=== PATIENT | female | born 1955 | race Caucasian/White ===

== ENCOUNTER 2016-10-27 13:06 | Outpatient (RCR) | payer BC ==
--- OUTSIDE RECORDS SUMMARY | 2016-10-11 13:19 | XMS REPORT | Continuity of Care Document ---
Author Author [facility] Organization [facility] Address Unknown Phone Unavailable Care Team Providers Care Dictating Machine Typist Name Role Phone Armando Davis PCP [phone] Source Comments Some departments are not documenting in the electronic medical record. If you do not see the information that you expected, contact Release of Information in the Health Information Management department at [phone] for further assistance in locating additional records.[facility] Active Allergies and Adverse Reactions Allergen Noted Date Severity Reactions Comments Codeine 03/19/2012 SEE COMMENTS Sulfa (Sulfonamide 03/19/2012 SEE COMMENTS Antibiotics) Current Medications Prescription Sig. Disp. Refills Start End Date Status Date Calcium-Cholecalciferol Take 2 Tabs by mouth Active (D3) (CALCIUM WITH twice daily. VITAMIN D) 600 mg(1,500mg) -400 unit Tab ERGOCALCIFEROL (VITAMIN Take 1,000 Units by mouth Active D2) (VITAMIN D PO) daily. MV-MN/IRON/FA/GUARANA/CAF Take by mouth. Active FEINE (ONE-A-DAY WOMEN'S ACTIVE PO) nitrofurantoin Take 100 mg by mouth as Active (MACRODANTIN) 100 mg Needed. PRN for UTIs capsule levothyroxine (SYNTHROID) Take 1 Tab by mouth 90 Tab 3 12/13/19 Active 50 mcg tablet daily. 15 Active Problems Problem Noted Date Hypothyroid 03/19/2012 Hypothyroidism 03/19/2012 Steroid long-term use 03/19/2012 Osteopenia 03/19/2012 Social History Tobacco Use Types Packs/Day Years Used Date Never Smoker Smokeless Tobacco: Never Used Tobacco Cessation: Counseling Given: No Comments: Alcohol Use Drinks/Week oz/Week Comments No Last Filed Vital Signs Vital Sign Reading Time Taken Blood Pressure 131/78 12/08/2014 2:07 PM CDT Pulse 84 12/08/2014 2:07 PM CDT Temperature - - Respiratory Rate - - Height 1.727 m (5' 8") 12/08/2014 2:07 PM CDT Weight 68.493 kg (151 lb) 12/08/2014 2:07 PM CDT Body Mass Index 22.96 12/08/2014 2:07 PM CDT Oxygen Saturation - - Plan of Care Health Maintenance Due Date Last Done Comments Physical (Comprehensive) 1963 Exam Pertussis Vaccine 1967 Tetanus Vaccine 1973 Cervical Cancer Screening 1977 Breast Cancer Screening 1996 Colorectal Cancer 2006 Screening Influenza Vaccine 05/12/2016 06/11/2014 (Previously completed) Results from Last 3 Months Not on file
[~2016-10-27 13:06] MED LIST: CALC-755 PO; CALC1TAB94 PO; CHOL10007 PO; CRAN450T9 PO; DOXY100T2 PO; FLAX100011 PO; LVT.05T PO; MTP25TSR PO; MULT-608 PO; OMEG-12 PO; PNT40TEC PO; PRD10T PO; PROP20TA5 PO; RISE150T PO; RISE30TA PO; VIT D3 PO
[2016-10-27] MEDS ORDERED: DENOSUMAB 60 MG/1 ML (PROLIA) SQ NR (13:26)
[2016-10-27] MEDS ORDERED: DENOSUMAB 60 MG/1 ML (PROLIA) CANCER CTR SQ SCH (13:30)
== END 2017-01-09 | disposition home or self-care (01) ==
LOC: ONC 13:06
PROVIDERS: ATTEND Internal Medicine Hematology & Oncology
DX: Z09 Encounter for follow-up examination after completed treatment for conditions other than malignant neoplasm (principal); Z86.000 Personal history of in-situ neoplasm of breast; E03.9 Hypothyroidism, unspecified; M85.80 Other specified disorders of bone density and structure, unspecified site; Z92.3 Personal history of irradiation
CPT/HCPCS: 96372

== ENCOUNTER 2017-04-27 13:14 | Outpatient (RCR) | payer BC ==
[2017-04-27] MEDS ORDERED: DENOSUMAB 60 MG/1 ML (PROLIA) CANCER CTR SQ SCH (13:45)
== END 2017-06-10 | disposition home or self-care (01) ==
LOC: ONC 13:14
PROVIDERS: ATTEND Internal Medicine Hematology & Oncology
DX: Z09 Encounter for follow-up examination after completed treatment for conditions other than malignant neoplasm (principal); Z86.000 Personal history of in-situ neoplasm of breast; M81.0 Age-related osteoporosis without current pathological fracture; E03.9 Hypothyroidism, unspecified; Z92.3 Personal history of irradiation; Z79.899 Other long term (current) drug therapy
CPT/HCPCS: 96372

== ENCOUNTER → 2017-07-10 | Outpatient (CLI) | payer BC ==
--- NOTE | 2017-07-11 14:13 | Diagnostic Imaging Report ---
EXAMINATION: Bilateral screening mammogram 2D views with tomosynthesis. The current study was also evaluated with a Computer Aided Detection (CAD) system. INDICATION: Screening. PERSONAL HISTORY: No current complaints stated on the questionnaire. COMPARISON: 07/07/2016. FINDINGS: The breasts are composed of heterogeneously dense parenchyma which may decrease mammographic sensitivity. Benign-appearing calcifications are seen. Allowing for technique and positional differences, no suspicious change is seen. IMPRESSION: Dense breasts with no definite change. ACR BI-RADS Category 2: Benign findings. Result letter will be mailed to the patient. Note: At least 10% of breast cancer is not imaged by mammography. Dictated by: Dictated on workstation # [id number]
== END ==
LOC: RAD 09:53
PROVIDERS: ATTEND Nurse Practitioner Adult Health
DX: Z12.31 Encounter for screening mammogram for malignant neoplasm of breast (principal)
CPT/HCPCS: 77067

== ENCOUNTER → 2017-08-16 | Outpatient (CLI) | payer BC | LOC: RAD 08:37 | PROVIDERS: ATTEND Internal Medicine Hematology & Oncology | DX: Z12.31 Encounter for screening mammogram for malignant neoplasm of breast (principal); M81.0 Age-related osteoporosis without current pathological fracture; Z85.3 Personal history of malignant neoplasm of breast ==

== ENCOUNTER 2017-10-13 08:04 | Outpatient (RCR) | payer BC ==
[2017-10-31] MEDS ORDERED: LEVO50TA6 PO (09:31)
[2017-10-31] MEDS ORDERED: FLAX1000 PO (09:31)
[2017-10-31] MEDS ORDERED: CALC-694 PO (09:31)
[2017-10-31] MEDS ORDERED: MULT1CAP27 PO (09:31)
== END 2017-11-05 | disposition home or self-care (01) ==
PROVIDERS: ATTEND Physician Assistant
DX: M54.12 Radiculopathy, cervical region (principal)

== ENCOUNTER 2017-10-27 13:22 | Outpatient (RCR) | payer BC ==
[2017-10-27] MEDS ORDERED: DENOSUMAB 60 MG/1 ML (PROLIA) CANCER CTR SQ SCH (13:38)
[2017-10-31] MEDS ORDERED: LEVO50TA6 PO (09:31)
[2017-10-31] MEDS ORDERED: MULT1CAP27 PO (09:31)
[2017-10-31] MEDS ORDERED: FLAX1000 PO (09:31)
[2017-10-31] MEDS ORDERED: CALC-694 PO (09:31)
== END 2017-11-13 | disposition home or self-care (01) ==
LOC: ONC 13:22
PROVIDERS: ATTEND Internal Medicine Hematology & Oncology
DX: Z09 Encounter for follow-up examination after completed treatment for conditions other than malignant neoplasm (principal); Z86.000 Personal history of in-situ neoplasm of breast; M81.0 Age-related osteoporosis without current pathological fracture; E03.9 Hypothyroidism, unspecified; Z92.3 Personal history of irradiation; Z79.899 Other long term (current) drug therapy
CPT/HCPCS: 96372; 99213

== ENCOUNTER 2017-10-31 09:00 | Outpatient (CLI) | payer BC ==
[~2017-10-31] VITALS: Ht 172.7 cm; Wt 65.8 kg
[2017-10-31] MEDS ORDERED: CALC-694 PO (09:31)
[2017-10-31] MEDS ORDERED: FLAX1000 PO (09:31)
[2017-10-31] MEDS ORDERED: LEVO50TA6 PO (09:31)
[2017-10-31] MEDS ORDERED: MULT1CAP27 PO (09:31)
== END 2017-10-31 09:41 ==
LOC: PREOP 09:00
PROVIDERS: ATTEND Surgery
DX: Z01.818 Encounter for other preprocedural examination (principal); Z12.11 Encounter for screening for malignant neoplasm of colon

== ENCOUNTER 2017-11-20 11:07 | Day surgery (SDC) | payer BC ==
[~2017-11-20] VITALS: Ht 172.7 cm; Wt 65.8 kg
[~2017-11-20 11:07] MED LIST changes: +CALC-694 PO; +FLAX1000 PO; +LEVO50TA6 PO; +MULT1CAP27 PO
[2017-11-20] MEDS ORDERED: NS IV 500 ML 500 ML ONE (11:10)
[2017-11-20] MEDS ORDERED: NS IV 500 ML 500 ML IV PRN (11:16)
[2017-11-20] MEDS ORDERED: fentaNYL INJECTION 100 MCG/2 ML AMP IVP PRN (11:30)
[2017-11-20] MEDS ORDERED: MIDAZOLAM 2 MG/2 ML (VERSED) VIAL IVP PRN (11:30)
--- OUTSIDE RECORDS SUMMARY | 2017-11-20 11:33 | XMS REPORT | Clinical Summary ---
Author Author [facility] Organization [facility] Address Unknown Phone Unavailable Care Team Providers Care Dowel Sander Operator Name Role Phone Sintia Salazar RN Unavailable Unavailable Edna Glaser MD Unavailable Terra Higgins APRN Unavailable Unavailable Armando Davis MD PCP Mychart, Generic Provider Unavailable Unavailable Source Comments Some departments are not documenting in the electronic medical record. If you do not see the information that you expected, contact Release of Information in the Health Information Management department at [phone] for further assistance in locating additional records.[facility] Allergies Active Allergy Reactions Severity Noted Date Comments Codeine SEE COMMENTS 03/19/2012 Sulfa (Sulfonamide SEE COMMENTS 03/19/2012 Antibiotics) Current Medications Prescription Sig. Disp. Refills [...] 03/19/2012 Steroid long-term use 03/19/2012 Osteopenia 03/19/2012 Family History Medical History Relation Name Comments Thyroid Disease Mother hypothyroid Relation Name Status Comments Father (Age 70) Mother Alive Social History Tobacco Use Types Packs/Day Years Used Date Never Smoker Smokeless Tobacco: Never Used Tobacco Cessation: Counseling Given: No Alcohol Use Drinks/Week oz/Week Comments No Sex Assigned at Date Recorded Not on file Last Filed Vital Signs Vital Sign Reading Time Taken Blood Pressure 131/78 12/08/2014 2:07 PM CDT Pulse 84 12/08/2014 2:07 PM CDT Temperature - - Respiratory Rate - - Oxygen Saturation - - Inhaled Oxygen - - Concentration Weight 68.5 kg (151 lb) 12/08/2014 2:07 PM CDT Height 172.7 cm (5' 8") 12/08/2014 2:07 PM CDT Body Mass Index 22.96 12/08/2014 2:07 PM CDT Plan of Treatment Health Maintenance Due Date Last Done Comments HEPATITIS C SCREENING 1956 PHYSICAL (COMPREHENSIVE) 1963 EXAM PERTUSSIS VACCINE 1967 HIV SCREENING 1971 TETANUS VACCINE 1973 CERVICAL CANCER SCREENING 1986 BREAST CANCER SCREENING 1996 COLORECTAL CANCER 2006 SCREENING SHINGLES VACCINE 2016 INFLUENZA VACCINE 06/11/2018 06/11/2014 (Previously completed) Results Not on filefrom Last 3 Months
--- OUTSIDE RECORDS SUMMARY | 2017-11-20 11:34 | XMS REPORT | Continuity of Care Document ---
Author Author [facility] Organization [facility] Address Unknown Phone Unavailable Allergies Active Description Code Type Severity Reaction Onset Reported/Identified Relationship to Patient Clinical Status Yes codeine [id number] Drug Allergy Unknown UNKNOWN 06/04/2007 Yes Sulfa (Sulfonamide Antibiotics) [id number] Drug Allergy Unknown UNKNOWN Yes Iodinated Contrast Media - IV Dye [id number] Drug Allergy Moderate SWELLLING 02/09/2012 Yes Iodinated Contrast Media - Oral and [id number] Drug Allergy Moderate SWELLLING 02/09/2012 Yes Iodinated Contrast- Oral and IV Dye [id number] Drug Allergy Moderate SWELLLING 02/09/2012 Medications There is no data. Problems Date Dx Coded Attending Type Code Diagnosis Diagnosed By 09/22/2009 Ot 233.0 12/22/2009 Ot 233.0 12/22/2009 Ot V58.0 04/27/2011 Ot 233.0 CA IN SITU BREAST 04/27/2011 Ot 427.9 CARDIAC DYSRHYTHMIA NOS 04/27/2011 Ot 623.5 NONINFECT VAG LEUKORRHEA 04/27/2011 Ot V15.3 HX OF IRRADIATION 04/27/2011 Ot V58.69 OTH MED,LT, CURRENT USE 02/14/2012 Ot 245.9 THYROIDITIS NOS 02/14/2012 Ot 784.0 HEADACHE 02/14/2012 Ot 793.11 SOLITARY PULMONARY NODULE 12/22/2014 Ot 174.9 12/22/2014 Ot 733.90 12/22/2014 Ot 719.45 12/22/2014 Ot 233.0 12/22/2014 Ot V15.3 12/22/2014 Ot V58.69 12/22/2014 Ot 233.0 12/22/2014 Ot V15.89 12/22/2014 Ot 233.0 12/22/2014 Ot V15.3 12/22/2014 Ot V58.69 12/22/2014 Ot 233.0 12/22/2014 Ot V15.3 12/22/2014 Ot V58.69 12/22/2014 Ot 174.9 12/22/2014 Ot V67.9 12/22/2014 Ot 397.0 12/22/2014 Ot 424.1 12/22/2014 Ot 427.69 12/22/2014 Ot V15.3 12/22/2014 Ot 427.69 12/22/2014 Ot 785.1 12/22/2014 Ot 233.0 12/22/2014 Ot 623.5 12/22/2014 Ot V15.3 12/22/2014 Ot V58.69 12/22/2014 Ot 233.0 12/22/2014 Ot 427.9 12/22/2014 Ot 623.5 12/22/2014 Ot V15.3 12/22/2014 Ot V58.69 12/22/2014 Ot 233.0 12/22/2014 Ot 427.9 12/22/2014 Ot 733.90 12/22/2014 Ot V15.3 12/22/2014 Ot V58.69 12/22/2014 Ot 733.90 12/22/2014 Ot V10.3 12/22/2014 Ot 233.0 12/22/2014 Ot 427.9 12/22/2014 Ot 733.90 12/22/2014 Ot V15.3 12/22/2014 Ot V58.69 12/22/2014 Ot 233.0 12/22/2014 Ot 793.81 12/22/2014 Ot V76.11 12/22/2014 Ot 786.2 12/22/2014 Ot 794.5 12/22/2014 Ot 785.1 12/22/2014 Ot 786.50 12/22/2014 Ot 611.72 12/22/2014 Ot 793.89 12/22/2014 Ot 611.72 12/22/2014 Ot 244.9 12/22/2014 Ot 245.9 12/22/2014 Ot 733.90 12/22/2014 Ot V10.3 12/22/2014 Ot V58.69 12/22/2014 Ot V67.1 12/22/2014 Ot V10.3 12/22/2014 Ot V76.11 12/22/2014 BESS CREWS N Ot 174.9 12/22/2014 BESS CREWS N Ot 793.82 12/22/2014 MARS, BOBAN N Ot V76.11 12/22/2014 MARS, BOBAN N Ot 244.9 12/22/2014 MARS, BOBAN N Ot 245.9 12/22/2014 MARS, BOBAN N Ot 627.3 12/22/2014 MARS, BOBAN N Ot 733.90 12/22/2014 MARS, BOBAN N Ot V13.89 12/22/2014 MARS, BESS N Ot V58.69 12/22/2014 MARS, BESS N Ot V67.1 12/22/2014 MARS, BOBAN N Ot 233.0 12/22/2014 MARS, BOBAN N Ot 733.90 12/22/2014 MARS, BESS N Ot V76.11 12/22/2014 APRIL URSULA S AMBULANCE MECHANIC Ot 244.9 12/22/2014 APRIL URSULA S AMBULANCE MECHANIC Ot 245.9 12/22/2014 URSULA CHEN S AMBULANCE MECHANIC Ot 627.3 12/22/2014 APRIL URSULA S AMBULANCE MECHANIC Ot 733.90 12/22/2014 APRIL URSULA S AMBULANCE MECHANIC Ot V10.3 12/22/2014 CHEN, URSULA S AMBULANCE MECHANIC Ot V58.69 12/22/2014 URSULA CHEN S AMBULANCE MECHANIC Ot V67.1 12/22/2014 URSULA CHEN S AMBULANCE MECHANIC Ot 338.29 12/22/2014 APRIL URSULA S AMBULANCE MECHANIC Ot 722.51 12/22/2014 APRIL URSULA S AMBULANCE MECHANIC Ot 786.52 12/22/2014 STAN VÁSQUEZ, AKSHAT R Ot 789.09 01/05/2015 APRIL URSULA S AMBULANCE MECHANIC Ot 724.5 01/05/2015 CHEN, HESHAMJASMEET S AMBULANCE MECHANIC Ot 733.90 01/05/2015 CHENURSULA Rendon S AMBULANCE MECHANIC Ot V13.89 01/05/2015 HESHAM CHENAH S AMBULANCE MECHANIC Ot V58.69 01/05/2015 URSULA CHEN S AMBULANCE MECHANIC Ot V67.1 01/30/2015 URSULA CHEN S AMBULANCE MECHANIC Ot 233.0 01/30/2015 URSULA CHEN S AMBULANCE MECHANIC Ot 724.5 01/30/2015 URSULA CHEN S AMBULANCE MECHANIC Ot 789.09 07/09/2015 URSULA CHEN AMBULANCE MECHANIC Ot D05.90 07/09/2015 URSULA CHEN AMBULANCE MECHANIC Ot R10.9 08/27/2015 BESS CREWS Ot E03.9 08/27/2015 BESS CREWS N Ot M85.80 08/27/2015 BESS CREWS N Ot Z09 08/27/2015 BESS CREWS N Ot Z86.000 08/27/2015 BESS CREWS N Ot Z92.3 09/02/2015 URSULA CHEN AMBULANCE MECHANIC Ot Z12.31 09/02/2015 URSULA CHEN AMBULANCE MECHANIC Ot Z85.3 09/17/2015 STAN VÁSQUEZ, AKSHAT West Ot G47.33 OBSTRUCTIVE SLEEP APNEA (ADULT) (PEDIATR 09/17/2015 STAN VÁSQUEZ, AKSHAT [place] Ot I49.9 CARDIAC ARRHYTHMIA, UNSPECIFIED 10/14/2015 BESS CREWS Burt Ot E03.9 HYPOTHYROIDISM, UNSPECIFIED 10/14/2015 BESS CREWS Ot M85.80 OTH DISRD OF BONE DENSITY AND STRUCTURE, 10/14/2015 BESS CREWS Ot Z09 ENCNTR FOR F/U EXAM AFT TRTMT FOR COND O 10/14/2015 BESS CREWS N Ot Z86.000 PERSONAL HISTORY OF IN-SITU NEOPLASM OF 10/14/2015 BESS CREWS N Ot Z92.3 PERSONAL HISTORY OF IRRADIATION 12/31/2015 WILLIAN HELM MD Ot I08.0 RHEUMATIC DISORDERS OF BOTH MITRAL AND A 12/31/2015 WILLIAN HELM MD Ot I47.1 SUPRAVENTRICULAR TACHYCARDIA 12/31/2015 WILLIAN HELM MD Ot I49.3 VENTRICULAR PREMATURE DEPOLARIZATION 12/31/2015 WILLIAN HELM MD Ot I08.0 RHEUMATIC DISORDERS OF BOTH MITRAL AND A 12/31/2015 WILLIAN HELM MD Ot I47.1 SUPRAVENTRICULAR TACHYCARDIA 12/31/2015 WILLIAN HELM MD Ot I49.3 VENTRICULAR PREMATURE DEPOLARIZATION 01/06/2016 WILLIAN HELM MD Ot E03.9 HYPOTHYROIDISM, UNSPECIFIED 01/06/2016 WILLIAN HELM MD Ot E78.5 HYPERLIPIDEMIA, UNSPECIFIED 01/06/2016 WILLIAN HELM MD, Ot G47.30 SLEEP APNEA, UNSPECIFIED 01/06/2016 WILLIAN HELM MD Ot I25.10 ATHSCL HEART DISEASE OF [place] CORONARY 01/06/2016 WILLIAN HELM MD Ot I34.0 NONRHEUMATIC MITRAL (VALVE) INSUFFICIENC 01/06/2016 WILLIAN HELM MD, Ot I35.0 NONRHEUMATIC AORTIC (VALVE) STENOSIS 01/06/2016 WILLIAN HELM MD Ot I49.3 VENTRICULAR PREMATURE DEPOLARIZATION 01/06/2016 WILLIAN HELM MD Ot R94.39 ABNORMAL RESULT OF OTHER CARDIOVASCULAR 01/06/2016 WILLIAN HELM MD Ot Z79.899 OTHER NURSING HOME (CURRENT) DRUG THERAPY 01/10/2016 Ot 786.2 COUGH 01/11/2016 SHAQUILLE VÁSQUEZ, JON Rea Ot T81.4XXA INFECTION FOLLOWING A PROCEDURE, INITIAL 01/12/2016 JON CORBIN MD Ot T81.4XXA INFECTION FOLLOWING A PROCEDURE, INITIAL 01/13/2016 WILLIAN HELM MD Ot I08.0 RHEUMATIC DISORDERS OF BOTH MITRAL AND A 01/13/2016 WILLIAN HELM MD Ot I47.1 SUPRAVENTRICULAR TACHYCARDIA 01/13/2016 WILLIAN HELM MD, Ot I49.3 VENTRICULAR PREMATURE DEPOLARIZATION 01/15/2016 WILLIAN HELM MD Ot E03.9 HYPOTHYROIDISM, UNSPECIFIED 01/15/2016 WILLIAN HELM MD Ot E78.5 HYPERLIPIDEMIA, UNSPECIFIED 01/15/2016 WILLIAN HELM MD Ot G47.30 SLEEP APNEA, UNSPECIFIED 01/15/2016 WILLIAN HELM MD Ot I25.10 ATHSCL HEART DISEASE OF [place] CORONARY 01/15/2016 WILLIAN HELM MD Ot I34.0 NONRHEUMATIC MITRAL (VALVE) INSUFFICIENC 01/15/2016 WILLIAN HELM MD, Ot I35.0 NONRHEUMATIC AORTIC (VALVE) STENOSIS 01/15/2016 WILLIAN HELM MD Ot I49.3 VENTRICULAR PREMATURE DEPOLARIZATION 01/15/2016 WILLIAN HELM MD Ot R94.39 ABNORMAL RESULT OF OTHER CARDIOVASCULAR 01/15/2016 WILLIAN HELM MD Ot Z79.899 OTHER NURSING HOME (CURRENT) DRUG THERAPY 02/05/2016 WILLIAN HELM MD Ot E03.9 HYPOTHYROIDISM, UNSPECIFIED 02/05/2016 WILLIAN HELM MD Ot E78.5 HYPERLIPIDEMIA, UNSPECIFIED 02/05/2016 WILLIAN HELM MD Ot G47.30 SLEEP APNEA, UNSPECIFIED 02/05/2016 WILLIAN HELM MD Ot I25.10 ATHSCL HEART DISEASE OF [place] CORONARY 02/05/2016 WILLIAN HELM MD Ot I34.0 NONRHEUMATIC MITRAL (VALVE) INSUFFICIENC 02/05/2016 WILLIAN HELM MD Ot I35.0 NONRHEUMATIC AORTIC (VALVE) STENOSIS 02/05/2016 WILLIAN HELM MD Ot I49.3 VENTRICULAR PREMATURE DEPOLARIZATION 02/05/2016 WILLIAN HELM MD Ot R94.39 ABNORMAL RESULT OF OTHER CARDIOVASCULAR 02/05/2016 WILLIAN HELM MD Ot 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 02/06/2016 WILLIAN HELM MD Ot E03.9 HYPOTHYROIDISM, UNSPECIFIED 02/06/2016 WILLIAN HELM MD Ot E78.5 HYPERLIPIDEMIA, UNSPECIFIED 02/06/2016 WILLIAN HELM MD Ot G47.30 SLEEP APNEA, UNSPECIFIED 02/06/2016 WILLIAN HELM MD Ot I25.10 ATHSCL HEART DISEASE OF [place] CORONARY 02/06/2016 WILLIAN HELM MD Ot I34.0 NONRHEUMATIC MITRAL (VALVE) INSUFFICIENC 02/06/2016 WILLIAN HELM MD Ot I35.0 NONRHEUMATIC AORTIC (VALVE) STENOSIS 02/06/2016 WILLIAN HELM MD Ot I49.3 VENTRICULAR PREMATURE DEPOLARIZATION 02/06/2016 WILLIAN HELM MD Ot R94.39 ABNORMAL RESULT OF OTHER CARDIOVASCULAR 02/06/2016 WILLIAN HELM MD Ot Z79.899 OTHER NURSING HOME (CURRENT) DRUG THERAPY 02/15/2016 Ot 174.9 MALIGN NEOPL BREAST NOS 02/15/2016 Ot V67.9 FOLLOW-UP EXAM NOS 02/15/2016 Ot 397.0 TRICUSPID VALVE DISEASE 02/15/2016 Ot 424.1 AORTIC VALVE DISORDER 02/15/2016 Ot 427.69 PREMATURE BEATS NEC 02/15/2016 Ot V15.3 HX OF IRRADIATION 02/15/2016 Ot 427.69 PREMATURE BEATS NEC 02/15/2016 Ot 785.1 PALPITATIONS 02/15/2016 Ot 233.0 CA IN SITU BREAST 02/15/2016 Ot 623.5 NONINFECT VAG LEUKORRHEA 02/15/2016 Ot V15.3 HX OF IRRADIATION 02/15/2016 Ot V58.69 OTH MED,LT, CURRENT USE 02/15/2016 Ot 233.0 CA IN SITU BREAST 02/15/2016 Ot 427.9 CARDIAC DYSRHYTHMIA NOS 02/15/2016 Ot 623.5 NONINFECT VAG LEUKORRHEA 02/15/2016 Ot V15.3 HX OF IRRADIATION 02/15/2016 Ot V58.69 OTH MED,LT, CURRENT USE 02/15/2016 Ot 233.0 CA IN SITU BREAST 02/15/2016 Ot 427.9 CARDIAC DYSRHYTHMIA NOS 02/15/2016 Ot 733.90 BONE CARTILAGE DIS NOS 02/15/2016 Ot V15.3 HX OF IRRADIATION 02/15/2016 Ot V58.69 OTH MED,LT, CURRENT USE 02/15/2016 Ot 733.90 BONE CARTILAGE DIS NOS 02/15/2016 Ot V10.3 HX OF BREAST MALIGNANCY 02/15/2016 Ot 233.0 CA IN SITU BREAST 02/15/2016 Ot 427.9 CARDIAC DYSRHYTHMIA NOS 02/15/2016 Ot 733.90 BONE CARTILAGE DIS NOS 02/15/2016 Ot V15.3 HX OF IRRADIATION 02/15/2016 Ot V58.69 OTH MED,LT, CURRENT USE 02/15/2016 Ot 233.0 CA IN SITU BREAST 02/15/2016 Ot 793.81 MAMMOGRAPHIC MICROCLACIFICATION 02/15/2016 Ot V76.11 SCRN MAMMO- HIGH RISK PT, MALIGNANT NEOPL 02/15/2016 Ot 786.2 COUGH 02/15/2016 Ot 794.5 ABN THYROID FUNCT STUDY 02/15/2016 Ot 785.1 PALPITATIONS 02/15/2016 Ot 786.50 CHEST PAIN NOS 02/15/2016 Ot 611.72 LUMP OR MASS IN BREAST 02/15/2016 Ot 793.89 OTH (ABN) FINDINGS ON RADIOLOGICAL EXAMI 02/15/2016 Ot 611.72 LUMP OR MASS IN BREAST 02/15/2016 Ot 244.9 HYPOTHYROIDISM NOS 02/15/2016 Ot 245.9 THYROIDITIS NOS 02/15/2016 Ot 733.90 BONE CARTILAGE DIS NOS 02/15/2016 Ot V10.3 HX OF BREAST MALIGNANCY 02/15/2016 Ot V58.69 OTH MED,LT, CURRENT USE 02/15/2016 Ot V67.1 RADIOTHERAPY FOLLOW-UP 02/15/2016 Ot V10.3 HX OF BREAST MALIGNANCY 02/15/2016 Ot V76.11 SCRN MAMMO- HIGH RISK PT, MALIGNANT NEOPL 02/15/2016 BESS CREWS Burt Ot 174.9 MALIGN NEOPL BREAST NOS 02/15/2016 BESS CREWS N Ot 793.82 INCONCLUSIVE MAMMOGRAM 02/15/2016 BESS CREWS Ot V76.11 SCRN MAMMO-HIGH RISK PT, MALIGNANT NEOPL 02/15/2016 BESS CREWS N Ot 244.9 HYPOTHYROIDISM NOS 02/15/2016 BESS CREWS N Ot 245.9 THYROIDITIS NOS 02/15/2016 BESS CREWS Burt Ot 627.3 ATROPHIC VAGINITIS 02/15/2016 BESS CREWS Ot 733.90 BONE CARTILAGE DIS NOS 02/15/2016 BESS CREWS Ot V13.89 PERSONAL HISTORY OF OTHER SPECIFIED DISE 02/15/2016 BESS CREWS Ot V58.69 OTH MED,LT,CURRENT USE 02/15/2016 BESS CREWS Ot V67.1 RADIOTHERAPY FOLLOW-UP 02/15/2016 BESS CREWS Ot 233.0 CA IN SITU BREAST 02/15/2016 BESS CRWES N Ot 733.90 BONE CARTILAGE DIS NOS 02/15/2016 BESS CREWS Burt Ot V76.11 SCRN MAMMO-HIGH RISK PT, MALIGNANT NEOPL 02/15/2016 URSULA CHEN AMBULANCE MECHANIC Ot 244.9 HYPOTHYROIDISM NOS 02/15/2016 URSULA CHEN AMBULANCE MECHANIC Ot 245.9 THYROIDITIS NOS 02/15/2016 URSULA CHEN AMBULANCE MECHANIC Ot 627.3 ATROPHIC VAGINITIS 02/15/2016 URSULA CHEN AMBULANCE MECHANIC Ot 733.90 BONE CARTILAGE DIS NOS 02/15/2016 URSULA CHEN AMBULANCE MECHANIC Ot V10.3 HX OF BREAST MALIGNANCY 02/15/2016 URSULA CHEN AMBULANCE MECHANIC Ot V58.69 OTH MED,LT,CURRENT USE 02/15/2016 URSULA CHEN AMBULANCE MECHANIC Ot V67.1 RADIOTHERAPY FOLLOW-UP 02/15/2016 URSULA CHEN AMBULANCE MECHANIC Ot 338.29 OTHER CHRONIC PAIN 02/15/2016 URSULA CHEN AMBULANCE MECHANIC Ot 722.51 THORACIC DISC DEGEN 02/15/2016 URSULA CHEN AMBULANCE MECHANIC Ot 786.52 PAINFUL RESPIRATION 02/15/2016 STAN VÁSQUEZ, AKSHAT R Ot 789.09 ABDOMINAL PAIN, OTHER SPECIFIED SITE 02/15/2016 URSULA CHEN AMBULANCE MECHANIC Ot 724.5 BACKACHE NOS 02/15/2016 URSULA CHEN AMBULANCE MECHANIC Ot 733.90 BONE CARTILAGE DIS NOS 02/15/2016 URSULA CHEN AMBULANCE MECHANIC Ot V13.89 PERSONAL HISTORY OF OTHER SPECIFIED DISE 02/15/2016 URSULA CHEN AMBULANCE MECHANIC Ot V58.69 OTH MED,LT,CURRENT USE 02/15/2016 URSULA CHEN AMBULANCE MECHANIC Ot V67.1 RADIOTHERAPY FOLLOW-UP 02/15/2016 URSULA CHEN AMBULANCE MECHANIC Ot 233.0 CA IN SITU BREAST 02/15/2016 URSULA CHEN AMBULANCE MECHANIC Ot 724.5 BACKACHE NOS 02/15/2016 URSULA CHEN AMBULANCE MECHANIC Ot 789.09 ABDOMINAL PAIN, OTHER SPECIFIED SITE 02/15/2016 URSULA CHEN AMBULANCE MECHANIC Ot Z12.31 ENCNTR SCREEN MAMMOGRAM FOR MALIGNANT NE 02/15/2016 URSULA CHEN AMBULANCE MECHANIC Ot Z85.3 PERSONAL HISTORY OF MALIGNANT NEOPLASM O 02/15/2016 BESS CREWS Ot E03.9 HYPOTHYROIDISM, UNSPECIFIED 02/15/2016 BESS CREWS Ot M85.80 OTH DISRD OF BONE DENSITY AND STRUCTURE, 02/15/2016 BESS CREWS Ot Z09 ENCNTR FOR F/U EXAM AFT TRTMT FOR COND O 02/15/2016 BESS CREWS Ot Z86.000 PERSONAL HISTORY OF IN-SITU NEOPLASM OF 02/15/2016 BESS CERWS Ot Z92.3 PERSONAL HISTORY OF IRRADIATION 02/15/2016 VOLODYMYR VÁSQUEZ, WILLIAN Lujan Ot I08.0 RHEUMATIC DISORDERS OF BOTH MITRAL AND A 02/15/2016 VOLODYMYR VÁSQUEZ, WILLIAN Lujan Ot I47.1 SUPRAVENTRICULAR TACHYCARDIA 02/15/2016 WILLIAN HELM MD Ot I49.3 VENTRICULAR PREMATURE DEPOLARIZATION 02/15/2016 EUGENE HODGE Ot I25.10 ATHSCL HEART DISEASE OF [place] CORONARY 02/15/2016 EUGENE HODGE Ot 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 02/15/2016 EUGENE HODGE Ot I47.1 SUPRAVENTRICULAR TACHYCARDIA 02/15/2016 EUGENE HODGE Ot I49.3 VENTRICULAR PREMATURE DEPOLARIZATION 03/30/2016 EUGENE HODGE Ot I25.10 ATHSCL HEART DISEASE OF [place] CORONARY 03/30/2016 EUGENE HODGE Ot 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 03/30/2016 EUGENE HODGE Ot I47.1 SUPRAVENTRICULAR TACHYCARDIA 03/30/2016 EUGENE HODGE Ot I49.3 VENTRICULAR PREMATURE DEPOLARIZATION 05/10/2016 EUGENE HODGE Ot I25.10 ATHSCL HEART DISEASE OF [place] CORONARY 05/10/2016 EUGENE HODGE Ot 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 05/10/2016 EUGENE HODGE Ot I47.1 SUPRAVENTRICULAR TACHYCARDIA 05/10/2016 EUGENE HODGE Ot I49.3 VENTRICULAR PREMATURE DEPOLARIZATION 05/12/2016 EUGENE HODGE Ot I25.10 ATHSCL HEART DISEASE OF [place] CORONARY 05/12/2016 EUGENE HODGE Ot 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 05/12/2016 EUGENE HODGE Ot I47.1 SUPRAVENTRICULAR TACHYCARDIA 05/12/2016 EUGENE HODGE Ot I49.3 VENTRICULAR PREMATURE DEPOLARIZATION 07/07/2016 Ot 233.0 CA IN SITU BREAST 07/07/2016 Ot 427.9 CARDIAC DYSRHYTHMIA NOS 07/07/2016 Ot 623.5 NONINFECT VAG LEUKORRHEA 07/07/2016 Ot V15.3 HX OF IRRADIATION 07/07/2016 Ot V58.69 OTH MED,LT, CURRENT USE 07/07/2016 Ot 233.0 CA IN SITU BREAST 07/07/2016 Ot 427.9 CARDIAC DYSRHYTHMIA NOS 07/07/2016 Ot 733.90 BONE CARTILAGE DIS NOS 07/07/2016 Ot V15.3 HX OF IRRADIATION 07/07/2016 Ot V58.69 OTH MED,LT, CURRENT USE 07/07/2016 Ot 733.90 BONE CARTILAGE DIS NOS 07/07/2016 Ot V10.3 HX OF BREAST MALIGNANCY 07/07/2016 Ot 233.0 CA IN SITU BREAST 07/07/2016 Ot 427.9 CARDIAC DYSRHYTHMIA NOS 07/07/2016 Ot 733.90 BONE CARTILAGE DIS NOS 07/07/2016 Ot V15.3 HX OF IRRADIATION 07/07/2016 Ot V58.69 OTH MED,LT, CURRENT USE 07/07/2016 Ot 233.0 CA IN SITU BREAST 07/07/2016 Ot 793.81 MAMMOGRAPHIC MICROCLACIFICATION 07/07/2016 Ot V76.11 SCRN MAMMO- HIGH RISK PT, MALIGNANT NEOPL 07/07/2016 Ot 786.2 COUGH 07/07/2016 Ot 794.5 ABN THYROID FUNCT STUDY 07/07/2016 Ot 785.1 PALPITATIONS 07/07/2016 Ot 786.50 CHEST PAIN NOS 07/07/2016 Ot 611.72 LUMP OR MASS IN BREAST 07/07/2016 Ot 793.89 OTH (ABN) FINDINGS ON RADIOLOGICAL EXAMI 07/07/2016 Ot 611.72 LUMP OR MASS IN BREAST 07/07/2016 Ot 244.9 HYPOTHYROIDISM NOS 07/07/2016 Ot 245.9 THYROIDITIS NOS 07/07/2016 Ot 733.90 BONE CARTILAGE DIS NOS 07/07/2016 Ot V10.3 HX OF BREAST MALIGNANCY 07/07/2016 Ot V58.69 OTH MED,LT, CURRENT USE 07/07/2016 Ot V67.1 RADIOTHERAPY FOLLOW-UP 07/07/2016 Ot V10.3 HX OF BREAST MALIGNANCY 07/07/2016 Ot V76.11 SCRN MAMMO- HIGH RISK PT, MALIGNANT NEOPL 07/07/2016 BESS CREWS Ot 174.9 MALIGN NEOPL BREAST NOS 07/07/2016 BESS CREWS Ot 793.82 INCONCLUSIVE MAMMOGRAM 07/07/2016 BESS CREWS Ot V76.11 SCRN MAMMO-HIGH RISK PT, MALIGNANT NEOPL 07/07/2016 BESS CREWS N Ot 244.9 HYPOTHYROIDISM NOS 07/07/2016 BESS CREWS N Ot 245.9 THYROIDITIS NOS 07/07/2016 BESS CREWS N Ot 627.3 ATROPHIC VAGINITIS 07/07/2016 BESS CREWS N Ot 733.90 BONE CARTILAGE DIS NOS 07/07/2016 BESS CREWS N Ot V13.89 PERSONAL HISTORY OF OTHER SPECIFIED DISE 07/07/2016 BESS CREWS Ot V58.69 OTH MED,LT,CURRENT USE 07/07/2016 BESS CREWS N Ot V67.1 RADIOTHERAPY FOLLOW-UP 07/07/2016 BESS CREWS N Ot 233.0 CA IN SITU BREAST 07/07/2016 BESS CREWS N Ot 733.90 BONE CARTILAGE DIS NOS 07/07/2016 BESS CREWS N Ot V76.11 SCRN MAMMO-HIGH RISK PT, MALIGNANT NEOPL 07/07/2016 URSULA CHEN AMBULANCE MECHANIC Ot 244.9 HYPOTHYROIDISM NOS 07/07/2016 URSULA CHEN AMBULANCE MECHANIC Ot 245.9 THYROIDITIS NOS 07/07/2016 URSULA CHEN AMBULANCE MECHANIC Ot 627.3 ATROPHIC VAGINITIS 07/07/2016 URSULA CHEN AMBULANCE MECHANIC Ot 733.90 BONE CARTILAGE DIS NOS 07/07/2016 URSULA CHEN AMBULANCE MECHANIC Ot V10.3 HX OF BREAST MALIGNANCY 07/07/2016 URSULA CHEN AMBULANCE MECHANIC Ot V58.69 OTH MED,LT,CURRENT USE 07/07/2016 URSULA CHEN AMBULANCE MECHANIC Ot V67.1 RADIOTHERAPY FOLLOW-UP 07/07/2016 URSULA CHEN AMBULANCE MECHANIC Ot 338.29 OTHER CHRONIC PAIN 07/07/2016 URSULA CHEN AMBULANCE MECHANIC Ot 722.51 THORACIC DISC DEGEN 07/07/2016 URSULA CHEN AMBULANCE MECHANIC Ot 786.52 PAINFUL RESPIRATION 07/07/2016 STAN VÁSQUEZ, AKSHAT R Ot 789.09 ABDOMINAL PAIN, OTHER SPECIFIED SITE 07/07/2016 URSULA CHEN AMBULANCE MECHANIC Ot 724.5 BACKACHE NOS 07/07/2016 URSULA CHEN AMBULANCE MECHANIC Ot 733.90 BONE CARTILAGE DIS NOS 07/07/2016 URSULA CHEN AMBULANCE MECHANIC Ot V13.89 PERSONAL HISTORY OF OTHER SPECIFIED DISE 07/07/2016 URSULA CHEN AMBULANCE MECHANIC Ot V58.69 OTH MED,LT,CURRENT USE 07/07/2016 URSULA CHEN AMBULANCE MECHANIC Ot V67.1 RADIOTHERAPY FOLLOW-UP 07/07/2016 URSULA CHEN AMBULANCE MECHANIC Ot 233.0 CA IN SITU BREAST 07/07/2016 URSULA CHEN AMBULANCE MECHANIC Ot 724.5 BACKACHE NOS 07/07/2016 URSULA CHEN AMBULANCE MECHANIC Ot 789.09 ABDOMINAL PAIN, OTHER SPECIFIED SITE 07/07/2016 URSULA CHEN AMBULANCE MECHANIC Ot Z12.31 ENCNTR SCREEN MAMMOGRAM FOR MALIGNANT NE 07/07/2016 URSULA CHEN AMBULANCE MECHANIC Ot Z85.3 PERSONAL HISTORY OF MALIGNANT NEOPLASM O 07/07/2016 BESS CREWS Ot E03.9 HYPOTHYROIDISM, UNSPECIFIED 07/07/2016 BESS CREWS Ot M85.80 OT DISRD OF BONE DENSITY AND STRUCTURE, 07/07/2016 BESS CREWS Ot Z09 ENCNTR FOR F/U EXAM AFT TRTMT FOR COND O 07/07/2016 BESS CREWS Ot Z86.000 PERSONAL HISTORY OF IN-SITU NEOPLASM OF 07/07/2016 BESS CREWS Ot Z92.3 PERSONAL HISTORY OF IRRADIATION 07/07/2016 WILLIAN HELM MD Ot I08.0 RHEUMATIC DISORDERS OF BOTH MITRAL AND A 07/07/2016 WILLIAN HELM MD Ot I47.1 SUPRAVENTRICULAR TACHYCARDIA 07/07/2016 WILLIAN HELM MD, Ot I49.3 VENTRICULAR PREMATURE DEPOLARIZATION 07/07/2016 EUGENE HODGE Ot I25.10 ATHSCL HEART DISEASE OF [place] CORONARY 07/07/2016 EUGENE HODGE Ot 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 07/07/2016 EUGENE HODGE Ot I47.1 SUPRAVENTRICULAR TACHYCARDIA 07/07/2016 EUGENE HODGE Ot I49.3 VENTRICULAR PREMATURE DEPOLARIZATION 07/07/2016 BESS CREWS Ot M85.80 OTH DISRD OF BONE DENSITY AND STRUCTURE, 07/07/2016 BESS CREWS Ot Z12.31 ENCNTR SCREEN MAMMOGRAM FOR MALIGNANT NE 07/07/2016 BESS CREWS Ot Z86.000 PERSONAL HISTORY OF IN-SITU NEOPLASM OF 07/08/2016 BESS CREWS Burt Ot M85.80 OTH DISRD OF BONE DENSITY AND STRUCTURE, 07/08/2016 BESS CREWS Ot Z12.31 ENCNTR SCREEN MAMMOGRAM FOR MALIGNANT NE 07/08/2016 BESS CREWS Burt Ot Z86.000 PERSONAL HISTORY OF IN-SITU NEOPLASM OF 07/14/2016 BESS CREWS Ot E03.9 HYPOTHYROIDISM, UNSPECIFIED 07/14/2016 BESS CREWS Burt Ot M85.80 OTH DISRD OF BONE DENSITY AND STRUCTURE, 07/14/2016 BESS CREWS Ot Z09 ENCNTR FOR F/U EXAM AFT TRTMT FOR COND O 07/14/2016 BESS CREWS Burt Ot Z86.000 PERSONAL HISTORY OF IN-SITU NEOPLASM OF 07/14/2016 BESS RCEWS Burt Ot Z92.3 PERSONAL HISTORY OF IRRADIATION 07/15/2016 BESS CREWS Ot E03.9 HYPOTHYROIDISM, UNSPECIFIED 07/15/2016 BESS CREWS Burt Ot M85.80 OTH DISRD OF BONE DENSITY AND STRUCTURE, 07/15/2016 BESS CREWS Burt Ot Z09 ENCNTR FOR F/U EXAM AFT TRTMT FOR COND O 07/15/2016 BESS CREWS Burt Ot Z86.000 PERSONAL HISTORY OF IN-SITU NEOPLASM OF 07/15/2016 BESS CREWS Burt Ot Z92.3 PERSONAL HISTORY OF IRRADIATION 07/21/2016 BESS CREWS Ot M85.80 OTH DISRD OF BONE DENSITY AND STRUCTURE, 07/21/2016 BESS CREWS Burt Ot Z12.31 ENCNTR SCREEN MAMMOGRAM FOR MALIGNANT NE 07/21/2016 BESS CREWS Burt Ot Z86.000 PERSONAL HISTORY OF IN-SITU NEOPLASM OF 07/28/2016 BESS CREWS Burt Ot E03.9 HYPOTHYROIDISM, UNSPECIFIED 07/28/2016 BESS CREWS Ot M85.80 OTH DISRD OF BONE DENSITY AND STRUCTURE, 07/28/2016 BESS CREWS Ot Z09 ENCNTR FOR F/U EXAM AFT TRTMT FOR COND O 07/28/2016 BESS CREWS Ot Z86.000 PERSONAL HISTORY OF IN-SITU NEOPLASM OF 07/28/2016 BESS CREWS Ot Z92.3 PERSONAL HISTORY OF IRRADIATION 12/07/2016 BESS CREWS Ot E03.9 HYPOTHYROIDISM, UNSPECIFIED 12/07/2016 BESS CREWS Ot M85.80 OTH DISRD OF BONE DENSITY AND STRUCTURE, 12/07/2016 BESS CREWS N Ot Z09 ENCNTR FOR F/U EXAM AFT TRTMT FOR COND O 12/07/2016 BESS CREWS Ot Z86.000 PERSONAL HISTORY OF IN-SITU NEOPLASM OF 12/07/2016 BESS CREWS Burt Ot Z92.3 PERSONAL HISTORY OF IRRADIATION 01/09/2017 BESS CREWS Ot E03.9 HYPOTHYROIDISM, UNSPECIFIED 01/09/2017 BESS CREWS Ot M85.80 OTH DISRD OF BONE DENSITY AND STRUCTURE, 01/09/2017 BESS CREWS N Ot Z09 ENCNTR FOR F/U EXAM AFT TRTMT FOR COND O 01/09/2017 BESS CREWS N Ot Z86.000 PERSONAL HISTORY OF IN-SITU NEOPLASM OF 01/09/2017 BESS CREWS N Ot Z92.3 PERSONAL HISTORY OF IRRADIATION 05/17/2017 BESS CREWS Ot E03.9 HYPOTHYROIDISM, UNSPECIFIED 05/17/2017 BESS CREWS Ot M85.80 OTH DISRD OF BONE DENSITY AND STRUCTURE, 05/17/2017 BESS CREWS N Ot Z09 ENCNTR FOR F/U EXAM AFT TRTMT FOR COND O 05/17/2017 BESS CREWS N Ot Z86.000 PERSONAL HISTORY OF IN-SITU NEOPLASM OF 05/17/2017 BESS CREWS N Ot Z92.3 PERSONAL HISTORY OF IRRADIATION 06/01/2017 BESS CREWS Ot E03.9 HYPOTHYROIDISM, UNSPECIFIED 06/01/2017 BESS CREWS N Ot M85.80 OTH DISRD OF BONE DENSITY AND STRUCTURE, 06/01/2017 BESS CREWS Burt Ot Z09 ENCNTR FOR F/U EXAM AFT TRTMT FOR COND O 06/01/2017 BESS CREWS N Ot Z86.000 PERSONAL HISTORY OF IN-SITU NEOPLASM OF 06/01/2017 BESS CREWS Burt Ot Z92.3 PERSONAL HISTORY OF IRRADIATION 06/10/2017 BESS CREWS Burt Ot E03.9 HYPOTHYROIDISM, UNSPECIFIED 06/10/2017 BESS CREWS Burt Ot M81.0 AGE-RELATED OSTEOPOROSIS W/O CURRENT PAT 06/10/2017 BESS CREWS Burt Ot Z09 ENCNTR FOR F/U EXAM AFT TRTMT FOR COND O 06/10/2017 BESS CREWS N Ot Z79.899 OTHER NURSING HOME (CURRENT) DRUG THERAPY 06/10/2017 BESS CREWS Burt Ot Z86.000 PERSONAL HISTORY OF IN-SITU NEOPLASM OF 06/10/2017 BESS CREWS Burt Ot Z92.3 PERSONAL HISTORY OF IRRADIATION 06/19/2017 BESS CREWS Burt Ot E03.9 HYPOTHYROIDISM, UNSPECIFIED 06/19/2017 MARS LOGANSARITA Burt Ot M81.0 AGE-RELATED OSTEOPOROSIS W/O CURRENT PAT 06/19/2017 MARS LOGANSARITA Burt Ot Z09 ENCNTR FOR F/U EXAM AFT TRTMT FOR COND O 06/19/2017 BESS CREWS Burt Ot Z79.899 OTHER NURSING HOME (CURRENT) DRUG THERAPY 06/19/2017 BESS CREWS N Ot Z86.000 PERSONAL HISTORY OF IN-SITU NEOPLASM OF 06/19/2017 BESS CREWS Burt Ot Z92.3 PERSONAL HISTORY OF IRRADIATION 07/11/2017 URSULA CHEN AMBULANCE MECHANIC Ot Z12.31 ENCNTR SCREEN MAMMOGRAM FOR MALIGNANT NE 07/16/2017 URSULA CHEN AMBULANCE MECHANIC Ot Z12.31 ENCNTR SCREEN MAMMOGRAM FOR MALIGNANT NE 07/20/2017 URSULA CHEN AMBULANCE MECHANIC Ot Z12.31 ENCNTR SCREEN MAMMOGRAM FOR MALIGNANT NE 08/16/2017 MARS LOGANSARITA uBrt Ot E03.9 HYPOTHYROIDISM, UNSPECIFIED 08/16/2017 MARS LOGANSARITA Burt Ot M81.0 AGE-RELATED OSTEOPOROSIS W/O CURRENT PAT 08/16/2017 MARS, BOBAN N Ot Z09 ENCNTR FOR F/U EXAM AFT TRTMT FOR COND O 08/16/2017 BESS CREWS N Ot 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 08/16/2017 BESS CREWS N Ot Z86.000 PERSONAL HISTORY OF IN-SITU NEOPLASM OF 08/16/2017 BESS CREWS N Ot Z92.3 PERSONAL HISTORY OF IRRADIATION 08/17/2017 BESS CREWS N Ot M81.0 AGE-RELATED OSTEOPOROSIS W/O CURRENT PAT 08/17/2017 BESS CREWS N Ot Z12.31 ENCNTR SCREEN MAMMOGRAM FOR MALIGNANT NE 08/17/2017 BESS CREWS N Ot Z85.3 PERSONAL HISTORY OF MALIGNANT NEOPLASM O 08/17/2017 BESS CREWS N Ot M81.0 AGE-RELATED OSTEOPOROSIS W/O CURRENT PAT 08/17/2017 BESS CREWS N Ot Z12.31 ENCNTR SCREEN MAMMOGRAM FOR MALIGNANT NE 08/17/2017 BESS CREWS Burt Ot Z85.3 PERSONAL HISTORY OF MALIGNANT NEOPLASM O 08/24/2017 TOSHIA SAVAGE Ot M54.12 RADICULOPATHY, CERVICAL REGION 09/21/2017 BESS CREWS Ot E03.9 HYPOTHYROIDISM, UNSPECIFIED 09/21/2017 BESS CREWS N Ot M81.0 AGE-RELATED OSTEOPOROSIS W/O CURRENT PAT 09/21/2017 BESS CREWS Ot Z09 ENCNTR FOR F/U EXAM AFT TRTMT FOR COND O 09/21/2017 BESS CREWS Ot 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 09/21/2017 BESS CREWS Ot Z86.000 PERSONAL HISTORY OF IN-SITU NEOPLASM OF 09/21/2017 BESS CREWS N Ot Z92.3 PERSONAL HISTORY OF IRRADIATION 10/25/2017 TOSHIA SAVAGE Ot M54.12 RADICULOPATHY, CERVICAL REGION 11/05/2017 TOSHIA SAVAGE Ot M54.12 RADICULOPATHY, CERVICAL REGION 11/06/2017 TOSHIA SAVAGE Ot M54.12 RADICULOPATHY, CERVICAL REGION 11/11/2017 TOSHIA SAVAGE Ot M54.12 RADICULOPATHY, CERVICAL REGION 11/13/2017 BESS CREWS Ot E03.9 HYPOTHYROIDISM, UNSPECIFIED 11/13/2017 BESS CREWS N Ot M81.0 AGE-RELATED OSTEOPOROSIS W/O CURRENT PAT 11/13/2017 BESS CREWS Ot Z09 ENCNTR FOR F/U EXAM AFT TRTMT FOR COND O 11/13/2017 BESS CREWS N Ot Z79.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 Results There is no data. Encounters ACCT No. Visit Date/Time Discharge Status Pt. Type Provider Facility Loc./Unit Complaint [id number] 11/14/2017 00:14:00 11/14/2017 23:59:59 CLS Preadmit BESS CREWS [facility] ONC [id number] 10/27/2017 13:22:00 11/13/2017 00:01:00 DIS Outpatient BESS CREWS [facility] ONC [id number] 11/06/2017 08:00:00 11/06/2017 23:59:59 CLS Preadmit TWAN VIDAL MD [facility] ENDO SCREENING [id number] 11/06/2017 00:11:00 11/06/2017 23:59:59 CLS Preadmit TOSHIA SAVAGE [facility] REHAB CERVICALGIA MYALGIA RADICULOPATHY [id number] 10/13/2017 08:04:00 11/05/2017 00:01:00 DIS Outpatient TOSHIA SAVAGE [facility] REHAB CERVICALGIA MYALGIA RADICULOPATHY [id number] 10/31/2017 09:00:00 10/31/2017 09:41:00 DIS Outpatient TWAN VIDAL MD [facility] PREOP COLONOSCOPY [id number] 08/16/2017 08:37:00 08/16/2017 23:59:59 CLS Outpatient MARSBESS Burt [facility] RAD Z12.31 SCREENING MAMMO [id number] 08/16/2017 08:24:00 08/16/2017 23:59:59 CLS Outpatient MARSLOGANSARITA [place] [facility] RAD M81.0 OSTEOPOROSIS [id number] 07/10/2017 09:53:00 07/10/2017 23:59:59 CLS Outpatient URSULA CHEN [facility] RAD SCREENING [id number] 04/27/2017 13:14:00 06/10/2017 00:01:00 DIS Outpatient BESS CREWS Burt [facility] ONC [id number] 10/27/2016 13:06:00 01/09/2017 00:01:00 DIS Outpatient BESS CREWS Burt [facility] ONC [id number] 07/14/2016 14:46:00 07/14/2016 23:59:59 CLS Outpatient MARS BESS N [facility] ONC [id number] 07/07/2016 09:38:00 07/07/2016 23:59:59 CLS Outpatient BESS CREWS [facility] RAD DCIS,OSTEOPENIA [id number] 05/11/2016 14:00:00 05/11/2016 23:59:59 CLS Preadmit EUGENE HODGE [facility] CARD AR,CAD,PVC, SVT [id number] 02/10/2016 13:43:00 05/10/2016 00:01:00 DIS Outpatient EUGENE HODGE [facility] CARD AR,CAD,PVC, SVT [id number] 01/10/2016 23:28:00 01/11/2016 01:31:00 DIS Emergency JON CORBIN MD [facility] ER POST HEART CATH, BRUISING BELOW GROIN ALONG LEG [id number] 01/06/2016 08:52:00 01/06/2016 13:40:00 DIS Outpatient WILLIAN HELM MD [facility] CATH ABNORMAL STRESS, PALPATATIONS,HLP [id number] 12/30/2015 12:28:00 12/30/2015 23:59:59 CLS Outpatient WILLIAN HELM MD [facility] CARD PVC,SVT,MR,AR [id number] 09/16/2015 21:04:00 09/17/2015 06:42:00 DIS Outpatient AKSHAT PIERCE MD [facility] SLEEP MORNING,MORNING HEADACHE, [id number] 07/16/2015 13:52:00 07/16/2015 23:59:59 CLS Outpatient BESS CREWS [facility] ONC [id number] 07/07/2015 08:30:00 07/07/2015 23:59:59 CLS Outpatient URSULA CHEN AMBULANCE MECHANIC [facility] RAD SCREENING [id number] 12/22/2014 08:40:00 12/22/2014 23:59:59 CLS Outpatient URSULA CHEN AMBULANCE MECHANIC [facility] RAD BREAST CA, BACK / FLANK PAIN [id number] 12/18/2014 12:55:00 12/18/2014 23:59:59 CLS Outpatient URSULA CHEN S AMBULANCE MECHANIC [facility] ONC [id number] 06/05/2014 07:59:00 06/05/2014 23:59:59 CLS Outpatient BESS CREWS [facility] RAD SCREENING,OSTEOPENIA [id number] 05/05/2014 13:47:00 05/05/2014 23:59:59 CLS Outpatient AKSHAT PIERCE MD [facility] RAD RT FLANK PAIN X 5 MONTHS [id number] 04/29/2014 13:40:00 04/29/2014 23:59:59 CLS Outpatient URSULA CHEN AMBULANCE MECHANIC [facility] RAD [id number] 04/29/2014 12:56:00 04/29/2014 23:59:59 CLS Outpatient URSULA CHEN AMBULANCE MECHANIC [facility] ONC [id number] 12/19/2013 14:58:00 12/19/2013 23:59:59 CLS Outpatient BESS CREWS [facility] ONC [id number] 05/29/2013 07:08:00 05/29/2013 23:59:59 CLS Outpatient BESS CREWS [facility] RAD SCREENING [id number] 12/22/2014 08:40:00 Document Registration [id number] 12/22/2014 08:40:00 Document Registration [id number] 12/22/2014 08:40:00 Document Registration [id number] 12/22/2014 08:40:00 Document Registration [id number] 12/31/2012 07:29:00 Document Registration [id number] 12/20/2012 13:03:00 Document Registration [id number] 06/12/2012 14:17:00 Document Registration [id number] 06/06/2012 08:05:00 Document Registration [id number] 05/28/2012 08:03:00 Document Registration [id number] 05/07/2012 07:21:00 Document Registration [id number] 02/09/2012 14:55:00 Document Registration [id number] 12/21/2011 13:03:00 Document Registration [id number] 08/25/2011 09:56:00 Document Registration [id number] 05/24/2011 11:43:00 Document Registration [id number] 04/28/2011 13:08:00 Document Registration [id number] 01/27/2011 13:49:00 Document Registration [id number] 12/07/2010 14:25:00 Document Registration [id number] 11/24/2010 13:48:00 Document Registration [id number] 11/09/2010 13:26:00 Document Registration [id number] 08/19/2010 13:32:00 Document Registration [id number] 2010 13:37:00 Document Registration [id number] 05/12/2010 09:17:00 Document Registration [id number] 03/04/2010 13:28:00 Document Registration [id number] 12/17/2009 15:46:00 Document Registration [id number] 10/07/2009 08:47:00 Document Registration [id number] 08/24/2009 11:04:00 Document Registration
[2017-11-20 11:39] VITALS: BP 121/88
--- NOTE | 2017-11-20 12:11 | History & Physicial ---
History of Present Illness History of Present Illness Reason for visit/HPI to undergo screening colonoscopy Date of Admission 11/20/17 Date Seen by Provider: Nov 20, 2017 Time Seen by Provider: 12:10 I consulted on this patient on 11/20/17 12:09 Attending Physician Twan Vidal MD Admitting Physician Konrad Adrian MD Consult Allergies and Home Medications Allergies Coded Allergies: Iodinated Contrast Media - Oral and (Verified Allergy, Intermediate, SWELLLING, 02/09/12) Sulfa (Sulfonamide Antibiotics) (Unverified Allergy, Unknown, UNKNOWN, 03/04) codeine (Unverified Allergy, Unknown, UNKNOWN, 06/04/07) Home Medications Calcium Carbonate/Vitamin D3 1 Each Tablet, 1 EACH PO DAILY, (Reported) Cholecalciferol (Vitamin D3) 1,000 Unit Capsule, 1,000 UNIT PO DAILY @ 1200, ( Reported) Flaxseed Oil 1,000 Mg Capsule, 1,000 MG PO DAILY, (Reported) Levothyroxine Sodium 50 Mcg Tablet, 50 MCG PO DAILY, (Reported) Multivitamin 1 Each Capsule, 1 EACH PO DAILY, (Reported) Patient Home Medication List Home Medication List Reviewed: Yes Past Rsdetgq-Diwaem-Obhotj Hx Patient Social History Alcohol Use: Denies Use Recreational Drug Use: No Smoking Status: Never a Smoker Recent Foreign Travel: No Contact w/other who traveled: No Recent Hopitalizations: No Recent Infectious Disease Expo: No Immunizations Up To Date Tetanus Booster (TDap): Unknown Date of Influenza Vaccine: Jul 12, 2017 Seasonal Allergies Seasonal Allergies: Yes Surgeries Yes Cardiac Respiratory Currently Using CPAP: Yes Currently Using BIPAP: No Cardiovascular No Neurological No Reproductive System Hx Reproductive Disorders: No Sexually Transmitted Disease: No HIV/AIDS: No Female Reproductive Disorders: Denies Cancer Breast Did You Recieve Any Treatments: Yes Type of Treatment: Radiation, Surgical Intervention Constitutional: no symptoms reported EENTM: no symptoms reported Respiratory: no symptoms reported Cardiovascular: no symptoms reported Gastrointestinal: no symptoms reported Genitourinary: no symptoms reported Musculoskeletal: no symptoms reported Skin: no symptoms reported Psychiatric/Neurological: No Symptoms Reported Physical Exam Vital Signs Vital Signs - First Documented 11/20/17 11:39 Temp 98.6 Pulse 94 Resp 18 B/P (MAP) 121/88 (99) Pulse Ox 96 O2 Delivery Room Air Capillary Refill : General Appearance: No Apparent Distress Neck: Normal Inspection Respiratory: Lungs Clear Cardiovascular: Regular Rate, Rhythm Gastrointestinal: Non Tender, Soft Rectal: Deferred Extremity: Normal Inspection Neurologic/Psychiatric: Alert, Oriented x3 Skin: Warm/Dry Assessment/Plan Assessment and Plan lady to undergo screening colonoscopy. Discussed in detail. Problems: Admission Diagnosis Admission Status: Other (Outpt Proc) TWAN VIDAL MD Nov 20, 2017 12:11 pm
--- NOTE | 2017-11-20 12:12 | Conscious Sedation/ASA ---
Conscious Sedation Pre-Proced Time Reviewed: 12:11 ASA Class: 2 Airway Mallampati Classification: (hoopa appropriate class) I. II. III, IV Lungs Heart ASA score ASA 1: a normal healthy patient ASA 2: a patient with a mild systemic disease (mid diabetes, controlled hypertension, obesity ASA 3: a patient with a severe systemic disease that limits activity (angina , COPD, prior Myocardial infarction) ASA 4: a patient with an incapacitating disease that is a constant threat to life (CHF, renal failure) ASA 5: a moribund patient not expected to survive 24 hrs. (ruptured aneurysm) ASA 6: a declared brain patient whose organs are being harvested. For emergent operations, add the letter E after the classification Grade 1 Sedation Plan: Discussed options with patient/fam Note The patient is an appropriate candidate to undergo the planned procedure, sedation, and anesthesia. The patient immediately re-assessed prior to indication. TWAN VIDAL MD Nov 20, 2017 12:11 pm
[2017-11-20] MEDS ORDERED: fentaNYL INJECTION 100 MCG/2 ML AMP ONE (12:42)
[2017-11-20] MEDS ORDERED: MIDAZOLAM 2 MG/2 ML (VERSED) VIAL ONE ×4 (12:42→12:43)
[2017-11-20] MEDS: MIDAZOLAM 2 MG/2 ML (VERSED) VIAL IVP PRN ×3 (12:53→13:02)
[2017-11-20] MEDS: fentaNYL INJECTION 100 MCG/2 ML AMP IVP PRN ×2 (12:54→12:57)
--- NOTE | 2017-11-20 13:10 | Endo Procedure Record ---
Endo Procedure Report Date of Procedure Last Colonoscopy: Yes (UNSURE) Nov 20, 2017 Surgeon (s) TWAN VIDAL MD Post Procedure/Op Diagnosis Normal colonoscopy Procedure Performed Colonoscopy to cecum Description of Procedure Anesthesia Type: Conscious Sedation Specimen(s) collected/removed none Description of the Procedure Indication for the procedure: This lady came in for screening colonoscopy. She reported a positive family history of polyps. Informed consent was obtained after reviewing the procedure in detail. Description of the procedure: She was placed in left lateral decubitus position and her vital signs were monitored. Conscious sedation was achieved using Versed and fentanyl. Digital rectal examination was unremarkable. The colonoscope was then introduced into the rectum and advanced all the way up to the cecum. The scope was then withdrawn slowly and the mucosa examined in a systematic fashion. There was no abnormality She tolerated the procedure well and was taken back to the nursing area in a stable condition. Impression: Normal screening colonoscopy. Family history of polyps. Recommend repeating in 5 years. Copies To: BESS CREWS Copies To: AKSHAT PIERCE MD, XAVIER M MD Nov 20, 2017 1:10 pm
--- NOTE | 2017-11-20 13:11 | Discharge Inst-Simple/Standard ---
Discharge Inst-Standard Discharge Medications New, Converted or Re-Newed RX: Other Patient Instructions/Follow Up Plan of Care/Instructions/FU: Repeat colonoscopy in 5 years Activity as Tolerated: Yes Discharge Diet: No Restrictions TWAN VIDAL MD Nov 20, 2017 1:11 pm
[2017-11-20 13:30] VITALS: BP 104/56
[2017-11-20 14:00] VITALS: BP 111/68
[2017-11-20 14:02] VITALS: BP 111/68
== END 2017-11-20 14:02 | disposition home or self-care (01) ==
LOC: ENDO 11:07
PROVIDERS: ATTEND Surgery
DX: Z12.11 Encounter for screening for malignant neoplasm of colon (principal); Z83.71 Family history of colonic polyps; Z88.2 Allergy status to sulfonamides; Z88.5 Allergy status to narcotic agent; Z79.899 Other long term (current) drug therapy

== ENCOUNTER 2018-05-04 12:58 | Outpatient (RCR) | payer BC ==
[~2018-05-04 12:58] MED LIST changes: -FLAX1000 PO; +FLAX10004 PO
[2018-05-04] MEDS ORDERED: DENOSUMAB 60 MG/1 ML (PROLIA) CANCER CTR SQ SCH (14:30)
== END 2018-05-11 | disposition home or self-care (01) ==
LOC: ONC 12:58
PROVIDERS: ATTEND Internal Medicine Hematology & Oncology
DX: Z09 Encounter for follow-up examination after completed treatment for conditions other than malignant neoplasm (principal); Z86.000 Personal history of in-situ neoplasm of breast; M81.0 Age-related osteoporosis without current pathological fracture; E03.9 Hypothyroidism, unspecified; Z92.3 Personal history of irradiation; Z79.899 Other long term (current) drug therapy
CPT/HCPCS: 96372

== ENCOUNTER → 2018-07-12 | Outpatient (CLI) | payer BC ==
--- NOTE | 2018-07-12 10:27 | Diagnostic Imaging Report ---
Indication: Osteoporosis. Comparison is made with prior study from 07/07/2016. Bone mineral analysis of the lumbar spine and both hips was performed. Bone mineral density lumbar spine L2-L4 is 1.016 with T score -1.5. This compares to 0.897 and -2.5. Bone marrow density left femoral neck is 0.737 with T score -2.2. This compares with 0.700 and -2.4. Bone marrow density right frontal neck is 0.805 with T score -1.7. This compares to 0.762 and -2.0. Impression: Findings consistent with osteopenia of the lumbar spine and bilateral femoral necks. Dictated by: Dictated on workstation # [id number]
--- NOTE | 2018-07-13 17:24 | RADIOLOGY REPORT ---
NAME: AUSTIN ARZATE [facility] REC#: [id number] PT STATUS: REG CLI : 1955 PHYSICIAN: BESS CREWS MD ADMIT DATE: 08/16/17/RAD CORRECTED Signed Date of Exam:07/12/18 MAMMO BILATERAL SCREENING INDICATION: Routine screening. COMPARISON: Comparison is made with prior mammograms from 07/10/2017 and 07/07/2016. TECHNIQUE: 2D and 3D bilateral screening mammography was performed with computer-aided detection (CAD) system. FINDINGS: Both breasts are heterogeneously dense, limiting the sensitivity of mammography. Post-therapeutic changes in the left breast are again noted. Overall, changes appear stable. No new mass or malignant appearing microcalcifications are seen. There are benign calcifications bilaterally. IMPRESSION: No mammographic features suspicious for malignancy are identified. ACR BI-RADS Category 2: Benign findings. Result letter will be mailed to the patient. Note: At least 10% of breast cancer is not imaged by mammography. Dictated by: Dictated on workstation # [id number] Dict: 07/12/18 1139 Trans: 07/13/18817 [id number] Interpreted by: LOUISE SCHAFER MD Electronically signed by: LOUISE SCHAFER MD 07/13/18817 [facility]
== END ==
LOC: RAD 08-16 08:24
PROVIDERS: ATTEND Internal Medicine Hematology & Oncology
DX: Z12.31 Encounter for screening mammogram for malignant neoplasm of breast (principal); M81.0 Age-related osteoporosis without current pathological fracture; Z85.3 Personal history of malignant neoplasm of breast
CPT/HCPCS: 77067; 77080

== ENCOUNTER 2018-07-24 12:57 | Outpatient (RCR) | payer BC | END 2018-10-22 | disposition home or self-care (01) | LOC: ONC 12:57 | PROVIDERS: ATTEND Internal Medicine Hematology & Oncology | DX: Z09 Encounter for follow-up examination after completed treatment for conditions other than malignant neoplasm (principal); Z86.000 Personal history of in-situ neoplasm of breast; M81.0 Age-related osteoporosis without current pathological fracture; E03.9 Hypothyroidism, unspecified; Z92.3 Personal history of irradiation; Z79.899 Other long term (current) drug therapy | CPT/HCPCS: 99213 ==

== ENCOUNTER 2018-11-27 13:41 | Outpatient (RCR) | payer BC ==
[2018-11-27] MEDS ORDERED: DENOSUMAB 60 MG/1 ML (PROLIA) CANCER CTR SQ SCH (14:15)
== END 2019-02-25 | disposition home or self-care (01) ==
LOC: ONC 13:41
PROVIDERS: ATTEND Internal Medicine Hematology & Oncology
DX: Z09 Encounter for follow-up examination after completed treatment for conditions other than malignant neoplasm (principal); Z86.000 Personal history of in-situ neoplasm of breast; M81.0 Age-related osteoporosis without current pathological fracture; E03.9 Hypothyroidism, unspecified; Z92.3 Personal history of irradiation; Z79.899 Other long term (current) drug therapy
CPT/HCPCS: 96372

== ENCOUNTER → 2019-07-12 | Outpatient (CLI) | payer BC ==
--- NOTE | 2019-07-12 12:35 | Diagnostic Imaging Report ---
INDICATION: Routine screening. Comparison is made with prior mammogram from 07/12/2018 and 07/10/2017. 2-D and 3-D bilateral screening mammography was performed with CAD. Both breasts are heterogeneously dense, limiting the sensitivity of mammography. Post-therapeutic changes in the left breast are again noted. Overall appearance appears to be stable. Benign calcifications in the right breast are again noted, marker clips also present in the right breast superiorly. No new mass or malignant-appearing microcalcifications are seen. Axillae are unremarkable. IMPRESSION: BI-RADS Category 2 No mammographic features suspicious for malignancy are identified. ACR BI-RADS Category 2: Benign findings. Result letter will be mailed to the patient. Note: At least 10% of breast cancer is not imaged by mammography. Dictated by: Dictated on workstation # [id number]
== END ==
LOC: RAD 11:10
PROVIDERS: ATTEND Internal Medicine Hematology & Oncology
DX: Z12.31 Encounter for screening mammogram for malignant neoplasm of breast (principal); Z86.000 Personal history of in-situ neoplasm of breast
CPT/HCPCS: 77067

== ENCOUNTER 2019-07-23 12:47 | Outpatient (RCR) | payer BC ==
[~2019-07-23 12:47] MED LIST changes: +DENOSUMAB 60 MG/1 ML (PROLIA) CANCER CTR SQ SCH
== END 2019-09-01 | disposition home or self-care (01) ==
LOC: ONC 12:47
PROVIDERS: ATTEND Internal Medicine Hematology & Oncology
DX: Z09 Encounter for follow-up examination after completed treatment for conditions other than malignant neoplasm (principal); Z86.000 Personal history of in-situ neoplasm of breast; M81.0 Age-related osteoporosis without current pathological fracture; E03.9 Hypothyroidism, unspecified; Z92.3 Personal history of irradiation; Z79.899 Other long term (current) drug therapy
CPT/HCPCS: 96372; 99213

== ENCOUNTER 2019-11-19 10:37 | Outpatient (RCR) | payer BC ==
[~2019-11-19 10:37] MED LIST changes: -DENOSUMAB 60 MG/1 ML (PROLIA) CANCER CTR SQ SCH
[2019-11-19] MEDS ORDERED: DENOSUMAB 60 MG/1 ML (PROLIA) CANCER CTR SQ SCH (11:00)
== END 2020-02-17 | disposition home or self-care (01) ==
LOC: ONC 10:37
PROVIDERS: ATTEND Internal Medicine Hematology & Oncology
DX: Z09 Encounter for follow-up examination after completed treatment for conditions other than malignant neoplasm (principal); Z86.000 Personal history of in-situ neoplasm of breast; I25.10 Atherosclerotic heart disease of native coronary artery without angina pectoris; E03.9 Hypothyroidism, unspecified; Z90.12 Acquired absence of left breast and nipple; Z92.3 Personal history of irradiation; Z87.310 Personal history of (healed) osteoporosis fracture
CPT/HCPCS: 96372

== ENCOUNTER → 2020-07-14 | Outpatient (CLI) | payer BC ==
--- NOTE | 2020-07-14 10:02 | Diagnostic Imaging Report ---
INDICATION: Postmenopausal. COMPARISON: 07/12/2018. FINDINGS: The total T score for the spine is -2.6 as opposed to -1.5 on the prior exam. This T score value now indicates osteoporosis. The total T score for the left hip is -1.8 and for the right hip -1.3. Previously the respective T-scores are -1.8 and -1.4. The T score for the left femoral neck is -2.3 and for the right femoral neck -1.7. On the prior exam, the respective T-scores were -2.2 and -1.7. AP Spine L1-L4: [BMD (g/cm2): 0.889] [T-Score: -2.6] [Z-Score: -1.1] [BMD Previous: 1.016] [BMD % Change: -12.5] LT Hip Neck: [BMD (g/cm2): 0.716] [T-Score: -2.3] [Z-Score: -0.9] LT Hip Total: [BMD (g/cm2):0.787] [T-Score:-1.8] [Z-Score: -0.6] [BMD Previous: 0.784] [BMD % Change: 0.4] RT Hip Neck: [BMD (g/cm2):0.802] [T-Score:-1.7] [Z-Score:-0.3] RT Hip Total: [BMD (g/cm2):0.845] [T-score:-1.3] [Z-Score:-0.2] [BMD Previous:0.834] [BMD % Change:1.3] *Indicates significant change from prior examination based on 95% confidence level. World Health Organization criteria for BMD interpretation classify patients as Normal (T-score at or above -1.0), Osteopenic (T-score between -1.0 and -2.5) or Osteoporotic (T-score at or below -2.5). LIMITATIONS AND MODIFICATION: None. FRACTURE RISK (FRAX SCORE): The ten year probability of (%): Major Osteoporotic Fracture: [18.4] Hip Fracture: [3.6] IMPRESSION: 1. There has been a decrease in bone mineral density of the spine and the T score value now falls within the range of osteoporosis. 2. The total T score for the hips and for the femoral necks has not changed significantly. These values continue to fall within the range of osteopenia. 3. See below National Osteoporosis Foundation guidelines on when to potentially initiate pharmacologic therapy. Based on the National Osteoporosis Foundation Guidelines, pharmacologic treatment should be initiated in any of the following, unless clinical conditions suggest otherwise: * Any patient with prior fragility fracture of the hip or vertebrae. A spine fracture indicates 5X risk for subsequent spine fracture and 2X risk for subsequent hip fracture. * Osteoporosis (T-score <-2.5). * Postmenopausal women and men age 50 and older with low bone mass/osteopenia (T-score between -1.0 and -2.5) by DXA and 10-year major osteoporotic fracture greater than 20% or a 10-year probability of hip fracture greater than 3%. These fracture risks are supplied above in the FRAX score, if applicable. * Clinician judgement and/or patient preferences may indicate treatment for people with 10-year fracture probabilities above or below these levels. Dictated by: Dictated on workstation # [id number]
--- NOTE | 2020-07-14 12:35 | Diagnostic Imaging Report ---
INDICATION: Routine screening. Comparison is made to prior mammogram 07/12/2019 and 07/12/2018. 2-D and 3-D bilateral screening mammography was performed with CAD. Both breasts showed marked parenchymal heterogeneity and increased density, limiting the sensitivity of mammography. Postoperative changes in the left breast appear stable. A right breast is stable. No discrete mass or malignant-appearing microcalcifications are seen. Axillae are unremarkable. IMPRESSION: BI-RADS Category 2 No mammographic features suspicious for malignancy are identified. ACR BI-RADS Category 2: Benign findings. Result letter will be mailed to the patient. Note: At least 10% of breast cancer is not imaged by mammography. Dictated by: Dictated on workstation # [id number]
== END ==
LOC: RAD 08:45
PROVIDERS: ATTEND Nurse Practitioner Adult Health
DX: Z12.31 Encounter for screening mammogram for malignant neoplasm of breast (principal); M81.0 Age-related osteoporosis without current pathological fracture; Z86.000 Personal history of in-situ neoplasm of breast
CPT/HCPCS: 77063; 77067; 77080

== ENCOUNTER 2020-08-12 10:03 | Outpatient (RCR) | payer BC ==
[2020-08-03 13:07] LABS: BASOPHILS # (AUTO) 0.1 10^3/uL (0.0-0.1); BASOPHILS % (AUTO) 1 % (0-10); EOSINOPHILS # (AUTO) 0.1 10^3/uL (0.0-0.3); EOSINOPHILS % (AUTO) 2 % (0-10); HEMATOCRIT 45 % (35-52); HEMOGLOBIN 14.7 g/dL (11.5-16.0); LYMPHOCYTES # (AUTO) 1.1 10^3/uL (1.0-4.0); LYMPHOCYTES % (AUTO) 16 % (12-44); MEAN CORPUSCULAR HEMOGLOBIN 30 pg (25-34); MEAN CORPUSCULAR HGB CONC 33 g/dL (32-36); MEAN CORPUSCULAR VOLUME 91 fL (80-99); MEAN PLATELET VOLUME 9.9 fL (9.0-12.2); MONOCYTES # (AUTO) 0.4 10^3/uL (0.0-1.0); MONOCYTES % (AUTO) 6 % (0-12); NEUTROPHILS # (AUTO) 5.4 10^3/uL (1.8-7.8); NEUTROPHILS % (AUTO) 75 % (42-75); PLATELET COUNT 183 10^3/uL (130-400); WHITE BLOOD COUNT 7.1 10^3/uL (4.3-11.0)
[2020-08-03 13:28] LABS: ALBUMIN 4.3 GM/DL (3.2-4.5); BILIRUBIN,TOTAL 0.4 MG/DL (0.1-1.0); CALCIUM 9.3 MG/DL (8.5-10.1); CREATININE SERUM 1.36 MG/DL (0.60-1.30); POTASSIUM 4.1 MMOL/L (3.6-5.0); TOTAL PROTEIN 7.1 GM/DL (6.4-8.2)
[~2020-08-12 10:03] MED LIST changes: +DENOSUMAB 60 MG/1 ML (PROLIA) CANCER CTR SQ SCH
== END 2020-08-31 | disposition home or self-care (01) ==
LOC: ONC 10:03
PROVIDERS: ATTEND Internal Medicine Hematology & Oncology
DX: I25.10 Atherosclerotic heart disease of native coronary artery without angina pectoris (principal); E03.9 Hypothyroidism, unspecified; E78.2 Mixed hyperlipidemia; Z86.000 Personal history of in-situ neoplasm of breast; Z90.12 Acquired absence of left breast and nipple; Z92.3 Personal history of irradiation; Z87.310 Personal history of (healed) osteoporosis fracture
CPT/HCPCS: 80053; 82306; 85025; 96372; 99213

== ENCOUNTER 2020-11-30 13:02 | Outpatient (RCR) | payer BC ==
[2020-11-30] MEDS ORDERED: DENOSUMAB 60 MG/1 ML (PROLIA) CANCER CTR SQ ONE (15:30)
== END 2021-02-28 | disposition home or self-care (01) ==
LOC: ONC 13:02
PROVIDERS: ATTEND Internal Medicine Hematology & Oncology
DX: D05.12 Intraductal carcinoma in situ of left breast (principal); M81.0 Age-related osteoporosis without current pathological fracture; I25.10 Atherosclerotic heart disease of native coronary artery without angina pectoris; E03.9 Hypothyroidism, unspecified; E78.2 Mixed hyperlipidemia; Z90.12 Acquired absence of left breast and nipple; Z92.3 Personal history of irradiation; Z78.0 Asymptomatic menopausal state
CPT/HCPCS: 96372

== ENCOUNTER → 2021-07-15 | Outpatient (CLI) | payer BC, MEDICARE ==
[~2021-07-15] MED LIST changes: -DENOSUMAB 60 MG/1 ML (PROLIA) CANCER CTR SQ SCH
--- NOTE | 2021-07-15 12:46 | Diagnostic Imaging Report ---
Indication: Routine screening. Comparison is made with prior mammogram 07/14/2020 and 07/12/2019. 2-D and 3-D bilateral screening mammography was performed with CAD. Both breasts remain heterogeneously dense, limiting the sensitivity of mammography. A benign calcification on the right is again noted. Post therapeutic changes on the left appears stable. No mass or malignant-appearing microcalcifications are seen. Axillae are unremarkable. IMPRESSION: BI-RADS Category 2 No mammographic features suspicious for malignancy are identified. ACR BI-RADS Category 2: Benign findings. Result letter will be mailed to the patient. Note: At least 10% of breast cancer is not imaged by mammography. Dictated by: Dictated on workstation # [id number]
== END ==
LOC: RAD 10:03
PROVIDERS: ATTEND Internal Medicine Hematology & Oncology
DX: Z12.31 Encounter for screening mammogram for malignant neoplasm of breast (principal); Z85.3 Personal history of malignant neoplasm of breast
CPT/HCPCS: 77063; 77067

== ENCOUNTER 2021-07-26 13:26 | Outpatient (RCR) | payer MEDICARE, OTHER ==
[2021-07-26 13:44] LABS: BASOPHILS # (AUTO) 0.1 10^3/uL (0.0-0.1); BASOPHILS % (AUTO) 1 % (0-10); EOSINOPHILS # (AUTO) 0.1 10^3/uL (0.0-0.3); EOSINOPHILS % (AUTO) 2 % (0-10); HEMATOCRIT 43 % (35-52); HEMOGLOBIN 14.1 g/dL (11.5-16.0); LYMPHOCYTES # (AUTO) 1.1 10^3/uL (1.0-4.0); LYMPHOCYTES % (AUTO) 19 % (12-44); MEAN CORPUSCULAR HEMOGLOBIN 30 pg (25-34); MEAN CORPUSCULAR HGB CONC 33 g/dL (32-36); MEAN CORPUSCULAR VOLUME 91 fL (80-99); MEAN PLATELET VOLUME 9.9 fL (9.0-12.2); MONOCYTES # (AUTO) 0.4 10^3/uL (0.0-1.0); MONOCYTES % (AUTO) 7 % (0-12); NEUTROPHILS # (AUTO) 4.2 10^3/uL (1.8-7.8); NEUTROPHILS % (AUTO) 70 % (42-75); PLATELET COUNT 205 10^3/uL (130-400)
[2021-07-26 14:04] LABS: BILIRUBIN,TOTAL 0.3 MG/DL (0.1-1.0); CREATININE SERUM 0.8 MG/DL (0.60-1.30); POTASSIUM 3.8 MMOL/L (3.6-5.0)
[2021-07-26] MEDS ORDERED: DENOSUMAB 60 MG/1 ML (PROLIA) CANCER CTR SQ SCH (14:15)
== END 2021-09-10 | disposition home or self-care (01) ==
LOC: ONC 13:26 → EDSTATUS 14:19
PROVIDERS: ATTEND Internal Medicine Hematology & Oncology
DX: D05.12 Intraductal carcinoma in situ of left breast (principal); M81.0 Age-related osteoporosis without current pathological fracture; I25.10 Atherosclerotic heart disease of native coronary artery without angina pectoris; E03.9 Hypothyroidism, unspecified; E78.2 Mixed hyperlipidemia
CPT/HCPCS: 80053; 82306; 85025; 96372; G0463; 99213

== ENCOUNTER → 2021-09-20 | Outpatient (CLI) | payer MEDICARE, OTHER | LOC: LABNPT 08:57 | PROVIDERS: ATTEND Family Medicine | DX: J02.9 Acute pharyngitis, unspecified (principal); R51.9 Headache, unspecified; Z20.822 Contact with and (suspected) exposure to COVID-19 | CPT/HCPCS: 87635 ==

== ENCOUNTER → 2022-03-01 | Outpatient (CLI) | payer MEDICARE, OTHER | LOC: CARD 12:50 | PROVIDERS: ATTEND Physician Assistant | DX: I08.0 Rheumatic disorders of both mitral and aortic valves (principal); I10 Essential (primary) hypertension; I25.10 Atherosclerotic heart disease of native coronary artery without angina pectoris | CPT/HCPCS: 93306 ==

== ENCOUNTER → 2022-04-18 | Outpatient (CLI) | payer MEDICARE, OTHER ==
[~2022-04-18] VITALS: Ht 172 cm; Wt 65.0 kg
[~2022-04-18] MED LIST changes: +CATHETER FLUSH 10 ML SYR IVP PRN
[2022-04-18 09:20] VITALS: BP 133/83
--- NOTE | 2022-04-19 08:49 | Cardiology Stress Test Report ---
Stress Test Report Date of Procedure/Referring: Date of Procedure: Apr 18, 2022 PCP No,Local Physician Admitting Physician Admitting Physician: Attending Physician: Janeth Hutson Indications: CAD Baseline Heart Rate: 72 Baseline Blood Pressure: Blood Pressure Systolic: 133 Blood Pressure Diastolic: 83 Vital Signs Date Time Temp Pulse Resp B/P (MAP) Pulse Ox O2 Delivery O2 Flow Rate FiO2 04/18/22 09:20 74 133/83 (100) Baseline Vital Signs Vital Signs Date Time Temp Pulse Resp B/P (MAP) Pulse Ox O2 Delivery O2 Flow Rate FiO2 04/18/22 09:20 74 133/83 (100) Baseline EKG: Baseline EKG: NSR Summary: After explaining the procedure and details to the patient, she signed the consent and was brought to the stress nuclear laboratory. Patient exercised on standard [place] protocol, EKG, heart rate and blood pressure were monitored continuously, resting and stress doses of radio tracer were injected, imaging was acquired and reviewed in the short axis, horizontal long axis and vertical long axis views Patient was able to exercise for a total of 5 minutes on [place] protocol, METs 7 Maximum heart rate 140 Maximum blood pressure 227/103 Stress EKG, Minimal nondiagnostic changes Recovery EKG, Return to baseline TID: 1.11 SSS: 7 SDS: 6 EF: 43 Conclusion: 1. Fair exercise tolerance for a total of 5 minutes on standard [place] protocol, 7 METS achieving 90% of maximum expected heart rate 2. Appropriate heart rate response with hypertensive response to exercise return to baseline during recovery 3. Reversible ischemia involving the mid to apical anterior wall and anterior septum 4. Normal left ventricular size with hypokinesia of the anterior wall, ejection fraction 43% WILLIAN HELM MD Apr 19, 2022 08:49
== END ==
LOC: CARD 08:30
PROVIDERS: ATTEND Physician Assistant
DX: I25.10 Atherosclerotic heart disease of native coronary artery without angina pectoris (principal)
CPT/HCPCS: 78452; 93017; A9502

== ENCOUNTER 2022-04-27 10:00 | Day surgery (SDC) | payer MEDICARE, OTHER ==
[2022-04-27] VITALS (9 sets, daily range): BP systolic 136–189; BP diastolic 74–98
[~2022-04-27] VITALS: Ht 172.7 cm; Wt 64.1 kg
[2022-04-27 08:38] LABS: HEMATOCRIT 44 % (35-52); HEMOGLOBIN 14.8 g/dL (11.5-16.0); MEAN CORPUSCULAR HEMOGLOBIN 30 pg (25-34); MEAN CORPUSCULAR HGB CONC 34 g/dL (32-36); MEAN CORPUSCULAR VOLUME 89 fL (80-99); MEAN PLATELET VOLUME 9.8 fL (9.0-12.2); PLATELET COUNT 194 10^3/uL (130-400); WHITE BLOOD COUNT 5.7 10^3/uL (4.3-11.0)
[2022-04-27 08:40] LABS: BILIRUBIN,URINE NEGATIVE (NEGATIVE); CLARITY,URINE CLEAR; COLOR,URINE YELLOW; GLUCOSE, URINE (UA) NEGATIVE (NEGATIVE); KETONES,URINE NEGATIVE (NEGATIVE); LEUKOCYTE ESTERASE ,URINE 1+ (NEGATIVE); NITRITE,URINE NEGATIVE (NEGATIVE); PH,URINE 7.5 (5-9); PROTEIN,URINE NEGATIVE (NEGATIVE)
[2022-04-27 08:48] LABS: POTASSIUM 3.8 MMOL/L (3.6-5.0)
[2022-04-27 08:49] LABS: CALCIUM 9.5 MG/DL (8.5-10.1)
[2022-04-27 08:51] LABS: PROTHROMBIN TIME PATIENT 13.4 SEC (12.2-14.7)
[2022-04-27 08:52] LABS: BILIRUBIN,TOTAL 0.5 MG/DL (0.1-1.0)
[2022-04-27 08:54] LABS: CREATININE SERUM 0.89 MG/DL (0.60-1.30)
[2022-04-27 09:00] LABS: BACTERIA,URINE FEW /HPF
[2022-04-27 09:01] LABS: SQUAMOUS EPITHELIAL CELL,UR 0-2 /HPF
--- NOTE | 2022-04-27 09:10 | Diagnostic Imaging Report ---
INDICATION: Pre-heart catheterization. TIME OF EXAM: 8:42 AM Correlation is made with prior chest 01/06/2016. FINDINGS: The heart size is normal. The pulmonary vascularity is unremarkable. The lungs are clear. No infiltrate, effusion or pneumothorax is detected. IMPRESSION: No acute cardiopulmonary process is detected. Dictated by: Dictated on workstation # [id number]
[~2022-04-27 10:00] MED LIST changes: -CATHETER FLUSH 10 ML SYR IVP PRN; +CHOL200025 PO; +DENO60DI SQ; +EZET10TA49 PO; +HEParin (CATH LAB) 2,000 ML IV ONE; +IBUP-2473 PO; +LIDOCAINE 1% INJ 20 ML VIAL ONE; +MULT-1136 PO; +NITR100C PO; +NS IV 1000 ML 1,000 ML IV SCH; +NS IV 1000 ML 1,000 ML ONE; +RIZA10TA37 PO
[2022-04-27] MEDS ORDERED: VERAPAMIL 5 MG/2 ML (CALAN) VIAL IV ONE (10:31)
[2022-04-27] MEDS ORDERED: fentaNYL INJ 100 MCG/2 ML AMP ONE (10:31)
[2022-04-27] MEDS ORDERED: MIDAZOLAM 5 MG/5 ML (VERSED) VIAL ONE (10:31)
[2022-04-27] MEDS ORDERED: NITRO DRIP 25000 MCG/D5W 250 ML IV ONE (10:32)
[2022-04-27] MEDS ORDERED: HEParin 1000 UNIT/ML (10ML VIAL) FOR BOLUS ONE (10:32)
[2022-04-27] MEDS ORDERED: diphenhydrAMINE 50 MG/ML INJ (BENADRYL) ONE (10:38)
[2022-04-27] MEDS ORDERED: methylPREDNISolone 125 MG (Solu-MEDROL) VIAL ONE (10:38)
--- NOTE | 2022-04-27 10:39 | Cardiac Procedure Note-CS/ASA ---
Pre-Procedure Note Pre-Op Procedure Note Date of Available H&P: Apr 19, 2022 Date H&P Reviewed: Apr 27, 2022 Time H&P Reviewed: 10:00 History & Physical: H&P Reviewed, Patient Examed, No changes noted Pre-Operative Diagnosis: LEFT BREAST CA (DCIS) Conscious Sedation Pre-Proced Time 10:00 ASA Score 3 For ASA 3 and 4: Consider anesthesia and medical clearance. Also, for patients with a history of failed moderate sedation consider anesthesia. Airway Lungs Heart ASA score ASA 1: a normal healthy patient ASA 2: a patient with a mild systemic disease (mid diabetes, controlled hypertension, obesity x ASA 3: a patient with a severe systemic disease that limits activity (angina, COPD, prior Myocardial infarction) ASA 4: a patient with an incapacitating disease that is a constant threat to life (CHF, renal failure) ASA 5: a moribund patient not expected to survive 24 hrs. (ruptured aneurysm) ASA 6: a declared brain- patient whose organs are being harvested. For emergent operations, add the letter E after the classification Mallampati Classification Grade 3 Sedation Plan Analgesia, Amnesia, Plan communicated to team members, Discussed options with patient/fam, Discussed risks with patient/fam The patient is an appropriate candidate to undergo the planned procedure, sedation, and anesthesia. The patient immediately re-assessed prior to indication. WILLIAN HELM MD Apr 27, 2022 10:39
--- NOTE | 2022-04-27 11:12 | Discharge Inst-Post CATH ---
Discharge Inst-CATH/EP Problems Reviewed?: Yes Post Cardiac Cath/EP D/C Inst Follow Up/Plan Appointment with Dr. Gambino's office in 2 to 4 weeks <b>CARDIAC CATH/EP PROCEDURE DISCHARGE INSTRUCTIONS</b> ACTIVITY * Go Home directly and rest. * Limit activity of the leg (or wrist if it was used) for 7 days including aer obics, swimming, jogging, bicycling, etc. * Restrict stair-climbing for 7 days if possible, if not, climb up with your non-cath leg, then bring together on the same step. * Avoid lifting, pushing, pulling or excessive movement of the affected extremi ty for 7 days. * Customary sexual activity may be resumed after 2 days-use caution not to use a position that strains or causes pain to the affected extremity. * No driving for 24 hours. * NO SMOKING. * Avoid straining for bowel movements for 7 days. * Gentle walking on level ground is allowed. * Returning to work will depend on the type of procedure and the results. Your doctor will discuss this with you. CALL YOUR DOCTOR FOR ANY OF THE FOLLOWING: *If bleeding from the puncture site occurs- Apply gentle pressure to site with clean cloth and call your doctor or EMS. * If a knot or lump forms under the skin, increases in size, or causes pain. * If bruising appears to be worsening or moving further down your leg instead of disappearing. * Temperature above 101 F. CARE OF YOUR GROIN INCISION; * Bruising or purple discoloration of the skin near the puncture site is common. * You may shower only, no bathtub bathing for 5 days. Be careful to avoid slipping as your leg may feel stiff. * If a closure device was used on your femoral artery, please see the attached guide regarding care of the device and your leg. * Leave dressing on FOR 24 hours. CARE OF YOUR WRIST INCISION; * Bruising or purple discoloration of the skin near the puncture site is common. * You may shower. * DO NOT submerge wrist. * Leave dressing on FOR 24 hours. WILLIAN GAMBINO MD Apr 27, 2022 11:11
[2022-04-27] MEDS ORDERED: NS IV 1000 ML 1,000 ML IV SCH (11:15)
--- NOTE | 2022-04-27 11:31 | Cardiac Cath Report ---
Cardiac Cath Report Physician (s)/[employer] Certified Internetwork Expert (s) Physician WILLIAN HELM MD Pre-Procedure Diagnosis Pre-Procedure Diagnosis: Coronary artery disease Post-Procedure Note Procedure Start Date: Apr 27, 2022 Name of Procedure: Left heart catheterization Findings/Procedure Note PROCEDURE NOTE: 66-year-old lady with history of breast cancer, received radiation therapy to the chest, history of hypertension, had an abnormal stress test, scheduled for cardiac catheterization possible PTCA. After explaining the procedure to the patient, all pros and cons were explained, all questions were answered. The patient signed the consent and then she was placed on the cardiac catheterization laboratory. Groin was prepped SL fashion local anesthesia was used. Sheath placed in the right radial artery, [place] catheter was advanced to the left ventricular cavity, pressure was measured, pullback LV to aorta was done, pressure was measured, engage the right and left coronary system, multiple views were obtained. At the end of the procedure the sheath was removed. Vascular band was used. FINDINGS: Hemodynamics LV 125/13, end-diastolic pressure of 13 Aorta 127/84 mean of 86 ANATOMY: Left Main is free of obstructive disease Left Anterior Descending is slightly tortuous with no obstructive disease Left Circumflex has no obstructive disease Right Coronary Artery is small nondominant artery with mild disease nonobstructive disease LV Gram was not done, pressure was measured CONCLUSION: 1. Mild coronary artery disease nonobstructive disease 2. Normal left ventricular end-diastolic pressure DISCUSSION AND RECOMMENDATION: Abnormal stress test is probably due to extracardiac attenuation, no intervention is warranted Anesthesia Type: Conscious Sedation Estimated blood loss (mL): 10 ml Contrast Amount: 26 ml Total Radiation Dose: 134 mGy Post-Procedure Diagnosis Post-operative diagnosis: Chest pain Coronary artery disease Hypertension Hyperlipidemia. WILLIAN HELM MD Apr 27, 2022 11:31
== END 2022-04-27 13:45 | disposition home or self-care (01) ==
LOC: CATH 10:00 → SDC 11:27 → CATH 13:45
PROVIDERS: ATTEND Internal Medicine Cardiovascular Disease
DX: I25.10 Atherosclerotic heart disease of native coronary artery without angina pectoris (principal); I10 Essential (primary) hypertension; I35.1 Nonrheumatic aortic (valve) insufficiency; E78.2 Mixed hyperlipidemia
CPT/HCPCS: 71045; 80053; 80061; 81000; 85027; 85610; 85730; 87081; 87088; 93005; 93458; C1894; 36415

== ENCOUNTER → 2022-04-29 | Outpatient (CLI) | payer MEDICARE, OTHER ==
[~2022-04-29] MED LIST changes: -HEParin (CATH LAB) 2,000 ML IV ONE; -LIDOCAINE 1% INJ 20 ML VIAL ONE; -NS IV 1000 ML 1,000 ML IV SCH; -NS IV 1000 ML 1,000 ML ONE
--- NOTE | 2022-04-29 11:25 | Diagnostic Imaging Report ---
CLINICAL INDICATIONS: Patient has neck pain that shoots into her shoulder blades. Patient has headaches and neck pops all the time. No known injury. EXAM: MRI of the cervical spine performed without IV contrast. Sequences include sagittal T2, sagittal T1, sagittal T2 fat-sat, and axial T2. COMPARISON: CT scan of the cervical spine without contrast dated 04/29/2022. FINDINGS: There is stable straightening of the cervical spine posture. There is no acute cervical spine fracture or dislocation. There is minimal Modic type I degenerative signal changes involving the C5-C6 endplates. There are mild hypertrophic spurs involving the cervical spine most pronounced at the C4-C5 level. Limited visualization of the posterior fossa is unremarkable. There is minimal prominence of the central canal of the spinal cord seen at the C7 level which measures 1 mm or less in size and does not meet criteria for syrinx. Cervical spinal cord otherwise has normal cord caliber with no abnormal signal. There is no significant paraspinal soft tissue abnormality. C1-C2: There are degenerative spurs involving the atlantoodontoid interval anteriorly. There is no significant central canal stenosis. C2-C3: There is severe right facet arthropathy/hypertrophy and mild left facet arthropathy. There is least mild right neural foramen narrowing and no significant left neural foramen narrowing. There is no significant central canal stenosis. C3-C4: There is stable grade 1 anterolisthesis C3 on C4. There is severe left facet arthropathy and mild right facet arthropathy. There is mild to moderate left neural foramen narrowing and moderate right neural foramen narrowing. There is no significant central canal stenosis. C4-C5: There is a diffuse disk bulge with bilateral uncinate spurs. There is mild to moderate bilateral facet arthropathy. There is mild right neural foramen narrowing and mild to moderate left neural foramen narrowing. There is no significant central canal stenosis. C5-C6: There is a diffuse disk bulge with mild to moderate loss of disk space height. There is mild bilateral facet arthropathy. There is at least moderate left neural foramen narrowing and no significant right neural foramen narrowing. There is severe central canal stenosis. There is ligamentum flavum buckling. C6-C7: There is a diffuse disk bulge with superimposed posterior disk spurs and uncinate spurs. There is ligamentum flavum buckling. There is severe central canal stenosis. There is at least mild right neural foramen narrowing and moderate left neural foramen narrowing. C7-T1: There is no significant central canal or neural foramen narrowing. IMPRESSION: There is severe multilevel cervical spine degenerative disk disease which is described in detail above. Dictated by: Dictated on workstation # [id number]
--- NOTE | 2022-04-29 13:12 | Diagnostic Imaging Report ---
CLINICAL INDICATION: Patient with arthritis. Patient states neck pops. Patient has chronic pain. EXAM: Axial CT scan of the cervical spine performed without IV contrast. Sagittal and coronal reformatted images were created. COMPARISON: None. FINDINGS: There is straightening of the cervical spine posture. There is no acute cervical spine fracture or dislocation. There are multilevel hypertrophic spurs anteriorly involving the cervical spine, most pronounced at the C3-C4 and C4-C5 levels. There is bilateral facet arthropathy/hypertrophy, worse involving the right C2-C3 facets and left C3-C4 facets. Visualized upper lung ramos are clear. There is moderate loss of disc space height at the C6-C7 level and mild loss of disc space height at the C5-C6 level. There is no significant central canal stenosis. C1-C2: There are degenerative spurs involving the atlanto-odontoid interval anteriorly. There is no significant bony central canal narrowing. C2-C3: There is severe right facet arthropathy and mild left facet arthropathy. There is moderate right neural foramen narrowing and no significant left neural foramen narrowing. There is no significant bony central canal stenosis. C3-C4: There is grade 1 anterolisthesis of C3 on C4. There is a diffuse disc bulge. There is moderate left facet arthropathy and mild right facet arthropathy. There is uvdczqjg-xo-xllrpy right neural foramen narrowing and moderate left neural foramen narrowing. There is no significant bony central canal narrowing. C4-C5: There is a diffuse disc bulge with bilateral uncinate spurs. There appears to be at least mild central canal narrowing. There is rvrr-wx-lbaeqiqj right neural foramen narrowing and no significant left neural foramen narrowing. C5-C6: There is a diffuse disc bulge with moderate loss of disc space height. There are bilateral uncinate spurs. There is no significant right neural foramen narrowing and severe left neural foramen narrowing. There is mild central canal narrowing. C6-C7: There is a diffuse disc bulge with hypertrophic posterior disc spurs and bilateral uncinate spurs. There is moderate loss of disc space height. There is mild central canal narrowing. There is vrtj-mt-qzodnqgw left neural foramen narrowing. There is no significant right neural foramen narrowing. There is at least mild central canal narrowing. C7-T1: Unremarkable. IMPRESSION: There is multilevel cervical spine degenerative disease, as described above. Dictated by: Dictated on workstation # [id number]
== END ==
LOC: RAD 09:08
PROVIDERS: ATTEND Orthopaedic Surgery Orthopaedic Surgery of the Spine
DX: M47.812 Spondylosis without myelopathy or radiculopathy, cervical region (principal); M43.12 Spondylolisthesis, cervical region; M50.223 Other cervical disc displacement at C6-C7 level; M48.02 Spinal stenosis, cervical region
CPT/HCPCS: 72125; 72141

== ENCOUNTER 2022-05-10 14:41 | Outpatient (RCR) | payer MEDICARE, OTHER | END 2022-05-11 | disposition home or self-care (01) | PROVIDERS: ATTEND Orthopaedic Surgery Orthopaedic Surgery of the Spine | DX: M54.2 Cervicalgia (principal); R51.9 Headache, unspecified ==

== ENCOUNTER 2022-06-08 11:13 | Outpatient (RCR) | payer MEDICARE, OTHER | END 2022-06-10 | disposition home or self-care (01) | PROVIDERS: ATTEND Orthopaedic Surgery Orthopaedic Surgery of the Spine | DX: M54.2 Cervicalgia (principal) ==

== ENCOUNTER 2022-07-01 10:33 | Outpatient (RCR) | payer MEDICARE, OTHER | END 2022-07-11 | disposition home or self-care (01) | PROVIDERS: ATTEND Orthopaedic Surgery Orthopaedic Surgery of the Spine | DX: M54.2 Cervicalgia (principal); R51.9 Headache, unspecified ==

== ENCOUNTER 2022-07-26 14:11 | Outpatient (RCR) | payer MEDICARE, OTHER | END 2022-08-10 | disposition home or self-care (01) | PROVIDERS: ATTEND Orthopaedic Surgery Orthopaedic Surgery of the Spine | DX: M54.2 Cervicalgia (principal) ==

== ENCOUNTER 2022-08-17 10:49 | Outpatient (RCR) | payer MEDICARE, OTHER | END 2022-08-17 11:30 | disposition home or self-care (01) | PROVIDERS: ATTEND Orthopaedic Surgery Orthopaedic Surgery of the Spine | DX: M54.2 Cervicalgia (principal); R51.9 Headache, unspecified ==

== ENCOUNTER 2023-04-05 00:57 | Emergency (ER) | payer MEDICARE, OTHER ==
[~2023-04-05] VITALS: Ht 173 cm; Wt 66.0 kg
[2023-04-05] MEDS ORDERED: METR-145 (01:18)
[2023-04-05] MEDS ORDERED: NS IV 1000 ML 1,000 ML IV STA (01:37)
[2023-04-05] MEDS ORDERED: KETOROLAC 30 MG/ML VIAL IVP STA (01:37)
[2023-04-05] MEDS ORDERED: HYOSCYAMINE 0.125 MG (LEVSIN) TAB SL ONE (01:45)
[2023-04-05] MEDS ORDERED: ONDANSETRON 4 MG/2 ML (SDV) Z0FRAN IVP ONE (01:45)
[2023-04-05 01:51] LABS: BILIRUBIN,URINE NEGATIVE (NEGATIVE); CLARITY,URINE CLEAR; COLOR,URINE YELLOW; GLUCOSE, URINE (UA) NEGATIVE (NEGATIVE); KETONES,URINE NEGATIVE (NEGATIVE); LEUKOCYTE ESTERASE ,URINE NEGATIVE (NEGATIVE); NITRITE,URINE NEGATIVE (NEGATIVE); PROTEIN,URINE NEGATIVE (NEGATIVE)
[2023-04-05 01:58] LABS: BASOPHILS % (AUTO) 0 % (0-10); EOSINOPHILS # (AUTO) 0.1 10^3/uL (0.0-0.3); EOSINOPHILS % (AUTO) 1 % (0-10); HEMATOCRIT 40 % (35-52); HEMOGLOBIN 13.6 g/dL (11.5-16.0); LYMPHOCYTES # (AUTO) 2.6 10^3/uL (1.0-4.0); LYMPHOCYTES % (AUTO) 38 % (12-44); MEAN CORPUSCULAR HEMOGLOBIN 29 pg (25-34); MEAN CORPUSCULAR HGB CONC 34 g/dL (32-36); MEAN CORPUSCULAR VOLUME 87 fL (80-99); MEAN PLATELET VOLUME 9.9 fL (9.0-12.2); MONOCYTES # (AUTO) 0.3 10^3/uL (0.0-1.0); MONOCYTES % (AUTO) 5 % (0-12); NEUTROPHILS # (AUTO) 3.7 10^3/uL (1.8-7.8); NEUTROPHILS % (AUTO) 54 % (42-75); PLATELET COUNT 159 10^3/uL (130-400); WHITE BLOOD COUNT 6.8 10^3/uL (4.3-11.0)
[2023-04-05 02:00] LABS: AMORPHOUS SEDIMENT,UR FEW AMOR URATES /LPF; BACTERIA,URINE NEGATIVE /HPF
--- NOTE | 2023-04-05 02:06 | ED Abdominal Pain ---
General Chief Complaint: Abdominal/GI Problems Stated Complaint: LOWER ABD PAIN Nursing Triage Note: lower abdominal pain, decreased appetite, fever, malaise. recently on abx for bronchitis Source of Information: Patient Exam Limitations: No Limitations History of Present Illness Date Seen by Provider: Apr 05, 2023 Time Seen by Provider: 01:11 Initial Comments Here with intermittent fever and lower abdominal pain for the last several days. She was on Augmentin for bronchitis that ended this weekend. She has been talking with her primary care provider, Dr. Sanchez, who has put her on metronidazole for potential colitis after antibiotics. Her bronchitis is better but states that she is having lower abdominal pain and bloating and this is becoming more significant and she is not able to sleep at night. She states that she is having multiple bowel movements each morning of loose stools but not diarrhea. She states that she is having fever in the afternoon and late evening daily over the last 3 to 4 days. Denies blood in her urine or stool. Denies dysuria. Main concern is the lower abdominal pain and this is starting to radiate to her back as well. She has not had history of diverticulitis. She has had some nausea with this as well and decreased appetite. Timing/Duration: 3-4 Days, Getting Worse Severity/Quality: Moderate, Cramping Location: RLQ, LLQ Radiation: Back Modifying Factors: Worsens With Eating Associated Symptoms: Back Pain; No Chest Pain; Fever/Chills, Nausea/Vomiting; No Shortness of Air, No Weakness Allergies and Home Medications Allergies Coded Allergies: Iodinated Contrast Media - Oral and (Verified Allergy, Intermediate, SWELLLING, 02/09/12) Sulfa (Sulfonamide Antibiotics) (Unverified Allergy, Unknown, UNKNOWN, 06/04/07) codeine (Unverified Allergy, Unknown, UNKNOWN, 06/04/07) Patient Home Medication List Home Medication List Reviewed: Yes Calcium Carbonate/Vitamin D3 (Calcium 600 + Vit D Caplet) 600 Mg Calcium-10 Mcg (400 Unit) Tablet, 1 EACH PO BID, (Reported) Entered as Reported by: KORTNEY MTZ on 10/31/17 0931 Cholecalciferol (Vitamin D3) (Vitamin D3) 50 Mcg (2000 Unit) Tablet, 50 MCG PO 1230, (Reported) Entered as Reported by: NICHOLE GUERRERO on 04/27/22 0900 Denosumab (Prolia) 60 Mg/Ml Disp.syrin, 60 MG SQ [id number], (Reported) Entered as Reported by: NICHOLE GUERRERO on 04/27/22 09 Ezetimibe (Ezetimibe) 10 Mg Tablet, 10 MG PO 1230, (Reported) Entered as Reported by: NICHOLE GUERRERO on 04/27/22 09 Ibuprofen (Ibuprofen) 200 Mg Tablet, 600 MG PO Q6H PRN for PAIN-MILD (1-4), (Reported) Entered as Reported by: NICHOLE GUERRERO on 04/27/22 09 Levothyroxine Sodium (Levothyroxine Sodium) 50 Mcg Tablet, 50 MCG PO DAILY, (Reported) Entered as Reported by: KORTNEY MTZ on 10/31/17 09 Metronidazole (Metronidazole) 500 Mg Tablet, (Reported) Entered as Reported by: NURY WHITEHEAD on 04/05/23 0118 Last Action: New Order Multivitamin (Multivitamin) 1 Each Tablet, 1 EACH PO HS, (Reported) Entered as Reported by: NICHOLE GUERRERO on 04/27/22899 Nitrofurantoin Macrocrystal (Nitrofurantoin) 100 Mg Capsule, 100 MG PO DAILY PRN for UTI, (Reported) Entered as Reported by: NICHOLE GUERRERO on 04/27/22899 Rizatriptan Benzoate (Rizatriptan) 10 Mg Tablet, 10 MG PO DAILY PRN for MIGRAINE, (Reported) Entered as Reported by: NICHOLE GUERRERO on 04/27/22899 Review of Systems Review of Systems Constitutional: see HPI; No chills, No fever EENTM: No Nose Congestion; Throat Pain (Throat tickle) Respiratory: Cough; Denies Shortness of Air Cardiovascular: Denies Chest Pain, Denies Edema Gastrointestinal: See HPI Genitourinary: No Symptoms Reported Musculoskeletal: see HPI Skin: no symptoms reported Psychiatric/Neurological: No Symptoms Reported Past Cjpvlvl-Povksa-Vdsfra Hx Patient Social History Tobacco Use?: No Substance use?: No Alcohol Use?: No Pt feels they are or have been: No Immunizations Up To Date Tetanus Booster (TDap): Unknown Seasonal Allergies Seasonal Allergies: Yes Past Medical History Surgery/Hospitalization HX: hld, hypothryoidism, breast ca, ortho, lumpectomy, heart cath Surgeries: Yes Cardiac Sleep Apnea Currently Using CPAP: Yes Currently Using BIPAP: No Cardiac: No Neurological: No Reproductive Disorders: No Female Reproductive Disorders: Denies Sexually Transmitted Disease: No HIV/AIDS: No Breast Did You Recieve Any Treatments: Yes What Type of Treatment Did You: Radiation, Surgical Intervention Family Medical History Reviewed Nursing Family Hx Physical Exam Vital Signs Vital Signs - First Documented 04/05/23 01:07 Temp 36.9 Pulse 108 Resp 18 B/P (MAP) 139/83 (101) Pulse Ox 100 O2 Delivery Room Air Capillary Refill : Less Than 3 Seconds Height/Weight/BMI Height: 5'8.00" Weight: 145lbs. 0.0oz. [id number]; 22.00 BMI Method:Stated General Appearance: WD/WN, no apparent distress HEENT: PERRL/EOMI, pharynx normal Neck: full range of motion, supple Respiratory: lungs clear, normal breath sounds Cardiovascular: no murmur, tachycardia Gastrointestinal: soft; No guarding, No rebound; tenderness (Mild lower abdominal tenderness) Extremities: non-tender, normal inspection Back: normal inspection, no CVA tenderness, no vertebral tenderness Neurologic/Psychiatric: alert, oriented x 3 Skin: normal color, warm/dry Progress/Results/Core Measures Results/Orders Lab Results Laboratory Tests Test 04/05/23 01:40 04/05/23 01:45 Range/Units Urine Color YELLOW Urine Clarity CLEAR Urine pH 7.0 5-9 Urine Specific [place] 1.010 L 1.016-1.022 Urine Protein NEGATIVE NEGATIVE Urine Glucose (UA) NEGATIVE NEGATIVE Urine Ketones NEGATIVE NEGATIVE Urine Nitrite NEGATIVE NEGATIVE Urine Bilirubin NEGATIVE NEGATIVE Urine Urobilinogen 0.2 < = 1.0 MG/DL Urine Leukocyte Esterase NEGATIVE NEGATIVE Urine RBC (Auto) NEGATIVE NEGATIVE Urine RBC NONE /HPF Urine WBC NONE /HPF Urine Crystals PRESENT H /LPF Urine Amorphous Sediment FEW YVON URATES H /LPF Urine Bacteria NEGATIVE /HPF Urine Casts NONE /LPF Urine Mucus NEGATIVE /LPF Urine Culture Indicated NO White Blood Count 6.8 4.3-11.0 10^3/uL Red Blood Count 4.66 3.80-5.11 10^6/uL Hemoglobin 13.6 11.5-16.0 g/dL Hematocrit 40 35-52 % Mean Corpuscular Volume 87 80-99 fL Mean Corpuscular Hemoglobin 29 25-34 pg Mean Corpuscular Hemoglobin Concent 34 32-36 g/dL Red Cell Distribution Width 14.7 H 10.0-14.5 % Platelet Count 159 130-400 10^3/uL Mean Platelet Volume 9.9 9.0-12.2 fL Immature Granulocyte % (Auto) 2 % Neutrophils (%) (Auto) 54 42-75 % Lymphocytes (%) (Auto) 38 12-44 % Monocytes (%) (Auto) 5 0-12 % Eosinophils (%) (Auto) 1 0-10 % Basophils (%) (Auto) 0 0-10 % Neutrophils # (Auto) 3.7 1.8-7.8 10^3/uL Lymphocytes # (Auto) 2.6 1.0-4.0 10^3/uL Monocytes # (Auto) 0.3 0.0-1.0 10^3/uL Eosinophils # (Auto) 0.1 0.0-0.3 10^3/uL Basophils # (Auto) 0.0 0.0-0.1 10^3/uL Immature Granulocyte # (Auto) 0.1 0.0-0.1 10^3/uL Sodium Level 136 135-145 MMOL/L Potassium Level 3.8 3.6-5.0 MMOL/L Chloride Level 102 98-107 MMOL/L Carbon Dioxide Level 25 21-32 MMOL/L Anion Gap 9 5-14 MMOL/L Blood Urea Nitrogen 7 7-18 MG/DL Creatinine 0.81 0.60-1.30 MG/DL Estimat Glomerular Filtration Rate 80 BUN/Creatinine Ratio 9 Glucose Level 113 H 70-105 MG/DL Calcium Level 9.0 8.5-10.1 MG/DL Corrected Calcium 9.4 8.5-10.1 MG/DL Total Bilirubin 0.7 0.1-1.0 MG/DL Aspartate Amino Transf (AST/SGOT) 73 H 5-34 U/L Alanine Aminotransferase (ALT/SGPT) 89 H 0-55 U/L Alkaline Phosphatase 70 40-136 U/L C-Reactive Protein High Sensitivity 1.07 H 0.00-0.50 MG/DL Total Protein 6.0 L 6.4-8.2 GM/DL Albumin 3.5 3.2-4.5 GM/DL My Orders Orders - SALEEM MCLEAN MD Ct Abdomen/Pelvis Wo (04/05/23 01:37) Cbc With Automated Diff (04/05/23 01:37) Comprehensive Metabolic Panel (04/05/23 01:37) Hs C Reactive Protein (04/05/23 01:37) Ua Culture If Indicated (04/05/23 01:37) Ondansetron Injection (Zofran Injectio (04/05/23 01:45) Ns Iv 1000 Ml (Sodium Chloride 0.9%) (04/05/23 01:37) Hyoscyamine Sl Tablet (Levsin Sl Tablet) (04/05/23 01:45) Ed Iv/Invasive Line Start (04/05/23 01:37) Ketorolac Injection (Toradol Injection) (04/05/23 01:37) Fentanyl Inj (Sublimaze Injection) (04/05/23 02:57) Fentanyl Inj (Sublimaze Injection) (04/05/23 03:22) Medications Given in ED Current Medications Medications Dose Ordered Sig/Fina Route Start Time Stop Time Status Last Admin Dose Admin Hyoscyamine Sulfate 0.125 mg ONCE ONCE SL 04/05/23 01:45 04/05/23 01:46 DC 04/05/23 01:51 0.125 MG Ondansetron HCl 4 mg ONCE ONCE IVP 04/05/23 01:45 04/05/23 01:46 DC 04/05/23 01:50 4 MG Vital Signs/I&O 04/05/23 04/05/23 01:07 01:50 Temp 36.9 36.9 Pulse 108 Resp 18 B/P (MAP) 139/83 (101) Pulse Ox 100 O2 Delivery Room Air Blood Pressure Mean: 101 Progress Progress Note : Progress Note Seen and evaluated. IV, labs including CBC, CMP, CRP and UA ordered. Normal saline 1 L bolus. Toradol 15 mg IV, Zofran 4 mg IV and Levsin 0.125 mg p.o. ordered. We will go ahead and get CT abdomen and pelvis without contrast as she is allergic to contrast media. Monitor patient. Differential diagnosis includes colitis, UTI, diverticulitis, dehydration, electrolyte abnormality 0206: CBC reviewed and grossly normal. Pending CMP and UA. CT abdomen pelvis is in progress. Monitor patient. 0215: CT abdomen and pelvis reviewed by me. No obvious free air, mass or significant diverticulitis/colitis noted on my interpretation. CMP and UA grossly normal. Pending radiology report. 0414: We have given fentanyl 25 mcg IV and repeated fentanyl 50 mcg IV and have some improvement in pain. CT result report noted and no acute findings on CT noted by radiology. We did discuss options. I will initiate outpatient ondansetron and Levsin as needed for nausea and cramping. She will follow-up with Dr. Sanchez and I will send a copy of the note to her. No indication for admission currently. She will continue probiotics and clear a light diet as well as metronidazole. Discharged home with return precautions. Patient verbalized understanding of instructions and agreement with plan. Diagnostic Imaging Diagonstic Imaging: CT Plain Films/CT/US/NM/MRI: abdomen, pelvis Comments Unremarkable noncontrast CT scan of the abdomen and pelvis. Departure Impression Primary Impression: Lower abdominal pain Disposition: HOME, SELF-CARE Condition: Stable Departure-Patient Inst. Decision time for Depature: 04:17 Referrals: CASSIE SANCHEZ MD (PCP/Family) Primary Care Physician Patient Instructions: Abdominal Pain, Adult ED Add. Discharge Instructions: All discharge instructions reviewed with patient and/or family. Voiced understanding. Clear a light diet for the next 24-48 hours then advance as tolerated. You should continue probiotics as discussed. You may initiate [id number] anti-gas treatment such as Gas-X. Follow-up with your doctor for recheck and further evaluation. Take other medications as directed. Return for worse pain, fever, vomiting, weakness, breathing problems or other concerns as needed. Scripts Ondansetron (Ondansetron Odt) 4 Mg Tab.rapdis 4 MG PO Q6H PRN for NAUSEA/VOMITING, #12 TAB 0 Refills Prov: SALEEM MCLEAN MD 04/05/23 Hyoscyamine Sulfate (Levsin-Sl) 0.125 Mg Tab.subl 0.125 MG SL Q4H PRN for ABDOMINAL PAIN, #12 TAB 0 Refills Prov: SALEEM MCLEAN MD 04/05/23 Copy Copies To 1: CASSIE SANCHEZ MD, TIMOTHY D MD Apr 05, 2023 02:06
[2023-04-05 02:09] LABS: ALBUMIN 3.5 GM/DL (3.2-4.5)
[2023-04-05 02:10] LABS: POTASSIUM 3.8 MMOL/L (3.6-5.0)
[2023-04-05 02:14] LABS: BILIRUBIN,TOTAL 0.7 MG/DL (0.1-1.0)
[2023-04-05 02:16] LABS: CREATININE SERUM 0.81 MG/DL (0.60-1.30)
[2023-04-05] MEDS ORDERED: fentaNYL INJ 100 MCG/2 ML AMP IVP STA ×2 (02:57→03:22)
[2023-04-05] MEDS ORDERED: HYOS-19 SL (04:20)
[2023-04-05] MEDS ORDERED: ONDA4TAB11 PO ×2 (04:20→04:22)
[2023-04-05] MEDS ORDERED: HYOS0.1283 SL (04:22)
[2023-04-05 04:23] VITALS: BP 109/65
--- NOTE | 2023-04-05 06:27 | Diagnostic Imaging Report ---
INDICATION: Abdominal pain TECHNIQUE: Multiple contiguous axial images were obtained through the abdomen and pelvis without the use of intravenous contrast. Auto Exposure Controls were utilized during the CT exam to meet ALARA standards for radiation dose reduction. Comparison made to 12/22/2014. The visualized portions of the lung bases are clear. There were no pleural fluid collections. There is no free intraperitoneal air. The liver and gallbladder appear normal. Spleen, adrenals, and pancreas are normal. The kidneys bilaterally are unremarkable. There is no retroperitoneal mass or adenopathy. There is no ascites or abnormal fluid collection. Visualized bowel loops are unremarkable. There is no pelvic mass or free fluid. IMPRESSION: Negative CT the abdomen and pelvis. Dictated by: Dictated on workstation # [id number]
== END 2023-04-05 04:26 | disposition home or self-care (01) ==
LOC: EDUNIT# 00:57 → ER 01:00
DX: R10.31 Right lower quadrant pain (principal); R10.32 Left lower quadrant pain; R11.2 Nausea with vomiting, unspecified; G47.30 Sleep apnea, unspecified; Z99.89 Dependence on other enabling machines and devices; Z88.5 Allergy status to narcotic agent
CPT/HCPCS: 36415; 74176; 80053; 81000; 85025; 86141

== ENCOUNTER 2023-04-06 13:54 | Inpatient (IN) | payer MEDICARE, OTHER ==
[~2023-04-06] VITALS: Ht 172.7 cm; Wt 66.0 kg
[~2023-04-06 13:54] MED LIST changes: +HYOS-19 SL; +HYOS0.1283 SL; +METR-145; +ONDA4TAB11 PO
[2023-04-06 14:00] VITALS: BP 127/77
--- OUTSIDE RECORDS SUMMARY | 2023-04-06 14:00 | XMS REPORT | Clinical Summary ---
Author Author [facility] Organization [facility] Address Unknown Phone Unavailable Care Team Providers Care Band Leader Name Role Phone Sintia Salazar RN Unavailable Unavailable Edna Glaser MD Unavailable Terra Higgins APRN Unavailable Unavailable Mychart, Generic Provider Unavailable Unavailable Lizeth Sanchez MD PCP Source Comments Some departments are not documenting in the electronic medical record. If you d o not see the information that you expected, contact Release of Information in Critical access hospital Information Management department at [phone] for further assistan ce in locating additional records.[facility] Allergies Comments Active Allergy Reactions Criticality Noted Date Codeine SEE COMMENTS 03/19/2012 Sulfa (Sulfonamide SEE COMMENTS 03/19/2012 Antibiotics) Medications End Date Status Medication Sig Dispensed Refills Start Date Active Calcium-Cholecalciferol Take 2 Tabs 0 (D3) (CALCIUM WITH by mouth VITAMIN D) 600 twice daily. mg(1,500mg) -400 unit Tab Active ERGOCALCIFEROL (VITAMIN Take 1,000 0 D2) (VITAMIN D PO) Units by mouth daily. Active MV-MN/IRON/FA/GUARANA/CAF Take by 0 FEINE (ONE-A-DAY WOMEN'S mouth. ACTIVE PO) Active nitrofurantoin Take 100 mg 0 (MACRODANTIN) 100 mg by mouth as capsule Needed. PRN for UTIs Active levothyroxine (SYNTHROID) Take 1 Tab by 90 Tab 3 50 mcg tablet mouth daily. 5 Active Problems Problem Noted Date Diagnosed Date Hypothyroid 03/19/2012 Hypothyroidism 03/19/2012 Steroid long-term use 03/19/2012 Osteopenia 03/19/2012 Immunizations Name Administration Dates Next Due Tdap Vaccine 09/05/2020 Surgical History Surgery Date Site/Laterality Comments HX TUBAL LIGATION HX SECTION HX BREAST LUMPECTOMY Medical History Medical History Date Comments Subacute thyroiditis Hyperthyroidism Breast cancer (HCC) 05/2009 left breast Hypothyroid Family History Medical History Relation Name Comments Thyroid Disease Mother hypothyroid Relation Name Status Comments Father (Age 70) Mother Alive Social History Date Tobacco Use Types Packs/Day Years Used Smoking Tobacco: Never Smokeless Tobacco: Never Tobacco Cessation: Counseling Given: No Comments Alcohol Use Standard Drinks/Week No 0 (1 standard drink = 0.6 o z pure alcohol) Date Recorded Alcohol Use Answer Alcohol Use No Male: 9+ ounces (15+ Standard Drinks) per week Not o n file Threshold Female: 4.8+ ounces (8+ Standard Drinks) per week 0 Threshold Date Recorded Sex and Gender Information Value Sex Assigned at Not on file Gender Identity Not on file Sexual Orientation Not on file Obstetrics History Last Filed Vital Signs Reading Time Taken Comments Vital Sign 138/69 09/05/2020 7:00 PM PRODUCTION MECHANIC Blood Pressure 84 12/08/2014 2:07 PM CDT Pulse 36.7 C (98 F) 09/05/2020 3:02 PM PRODUCTION MECHANIC Temperature - - Respiratory Rate 99% 09/05/2020 7:00 PM PRODUCTION MECHANIC Oxygen Saturation - - Inhaled Oxygen Concentration 68.5 kg (151 lb) 12/08/2014 2:07 PM CDT Weight 172.7 cm (5' 8") 12/08/2014 2:07 PM CDT Height 22.96 12/08/2014 2:07 PM CDT Body Mass Index Plan of Treatment Health Maintenance Due Date Last Done Comments COVID-19 VACCINE (#1) 1956 HEPATITIS C SCREENING 1974 PHYSICAL (COMPREHENSIVE) 1974 EXAM BREAST CANCER SCREENING 1996 COLORECTAL CANCER 2001 SCREENING OSTEOPOROSIS 2021 SCREENING/MONITORING PNEUMOCOCCAL VACCINE 65+ 2021 YRS (1 - PCV) DEPRESSION SCREENING 09/11/2022 INFLUENZA VACCINE (#1) 2023 DTAP/TDAP VACCINES (2 - 09/05/2030 09/05/2020 Td or Tdap) SHINGLES RECOMBINANT Completed 10/29/2018, VACCINE 07/14/2018 Results Not on filefrom Last 3 Months Insurance Type Payer Benefit Subscriber ID Effective Phone Address Plan / Dates Group HMO [facility] [id number] 2020-P [phone] [id number] [place] [id number] [id number] Care Teams Start Date End Date Band Leader Relationship Specialty 09/05/20 Lizeth Sanchez MD PCP - General Family Medicine [address] [place] [id number] 03/16/12 Sintia Salazar, RN 03/19/12 Edna Glaser MD Endocrinolog y, Diabetes [address] [facility] [place] [address] 11/14/13 Terra Higgins APRN Internal Medicine [facility] 12/12/14 Mychart, Generic Provider
[2023-04-06] MEDS ORDERED: MELATONIN 3 MG TABLET PO PRN (14:15)
[2023-04-06] MEDS ORDERED: HYDROmorphone 2 MG/ML VIAL (DILAUDID) IV PRN (14:15)
[2023-04-06] MEDS ORDERED: CALCIUM CARBONATE 500 MG CHEW TABLET PO PRN (14:15)
[2023-04-06] MEDS ORDERED: polyethylene glycoL POWDER 17 GM (MIRALAX) PACK PO PRN (14:15)
[2023-04-06] MEDS ORDERED: ACETAMINOPHEN 325 MG TABLET PO PRN (14:15)
[2023-04-06] MEDS ORDERED: MILK OF MAGNESIA 400 MG/5 ML 30 ML UDC PO PRN (14:15)
[2023-04-06] MEDS ORDERED: ANTACID SUSP 30 ML UDC (MYLANTA) PO PRN (14:15)
[2023-04-06] MEDS ORDERED: BISACODYL 10 MG SUPPOSITORY PR PRN (14:15)
[2023-04-06] MEDS ORDERED: diphenhydrAMINE INJ 50 MG/ML VIAL IVP PRN (14:15)
[2023-04-06] MEDS ORDERED: LACTULOSE SYRUP 10GM/15ML (ENULOSE) 30ML UDC PO PRN (14:15)
[2023-04-06 14:27] LABS: BASOPHILS % (AUTO) 1 % (0-10); EOSINOPHILS % (AUTO) 0 % (0-10); HEMATOCRIT 39 % (35-52); HEMOGLOBIN 13.3 g/dL (11.5-16.0); LYMPHOCYTES # (AUTO) 2.3 10^3/uL (1.0-4.0); LYMPHOCYTES % (AUTO) 39 % (12-44); MEAN CORPUSCULAR HEMOGLOBIN 29 pg (25-34); MEAN CORPUSCULAR HGB CONC 34 g/dL (32-36); MEAN CORPUSCULAR VOLUME 85 fL (80-99); MONOCYTES # (AUTO) 0.3 10^3/uL (0.0-1.0); MONOCYTES % (AUTO) 5 % (0-12); NEUTROPHILS # (AUTO) 3.1 10^3/uL (1.8-7.8); NEUTROPHILS % (AUTO) 54 % (42-75); PLATELET COUNT 166 10^3/uL (130-400); WHITE BLOOD COUNT 5.9 10^3/uL (4.3-11.0)
[2023-04-06] MEDS: NS IV 1000 ML 1,000 ML IV SCH ×2 (14:32→23:15)
[2023-04-06 14:46] LABS: ALBUMIN 3.6 GM/DL (3.2-4.5)
[2023-04-06 14:47] LABS: POTASSIUM 3.8 MMOL/L (3.6-5.0)
[2023-04-06 14:48] LABS: CALCIUM 8.9 MG/DL (8.5-10.1)
[2023-04-06 14:49] LABS: TOTAL PROTEIN 6.2 GM/DL (6.4-8.2)
[2023-04-06 14:51] LABS: BILIRUBIN,TOTAL 0.7 MG/DL (0.1-1.0)
[2023-04-06 14:53] LABS: CREATININE SERUM 0.76 MG/DL (0.60-1.30)
[2023-04-06 14:53] LABS: BILIRUBIN,URINE NEGATIVE (NEGATIVE); CLARITY,URINE CLEAR; COLOR,URINE YELLOW; GLUCOSE, URINE (UA) NEGATIVE (NEGATIVE); KETONES,URINE TRACE (NEGATIVE); LEUKOCYTE ESTERASE ,URINE NEGATIVE (NEGATIVE); NITRITE,URINE NEGATIVE (NEGATIVE); PH,URINE 7.5 (5-9); PROTEIN,URINE NEGATIVE (NEGATIVE)
--- NOTE | 2023-04-06 15:12 | History & Physical ---
LALIT VENCES 04/06/23 1512: History of Present Illness History of Present Illness Reason for visit/HPI Estelita Millard is a 67yo F with past medical history of osteoporosis, HLD, hypothyroidism, migraines, and breast cancer who presents as a direct admission from Dr Sanchez's clinic. Her chief complaint is lower abdominal pain worse in the LLQ with fevers for the last 4 days. She rates the pain 6/10 across her lower abdomen worse in the LLQ that radiates to her lower back. Pain is worse at night which has caused her to not get much sleep. She reports an episode of emesis last night that was non bloody and mostly liquid with mucus mixed in. She has felt nauseous intermittently for the last 3-4 days. She has had decreased BMs with her last BM being this morning for a stool sample at Dr Sanchez's office. She has had decreased appetite as well. She was recently treated with augmentin for a respiratory infection. Finished the augmentin and began having symptoms shortly afterward so Dr Sanchez started her on metronidazole for possible pseudomembranous colitis. Highest fever was 103 with most recent fever of 101 last night. She went to the ED on 04/05 for the same complaints. Her CBC and CMP were largely normal. CT abdomen and pelvis was unrevealing for etiology of her abdominal pain. She was given pain medication, IV fluids, and antiemesis before being discharged. Denies any recent sick contacts or changes to diet. She has been placed on clear liquid diet and admitted for further workup and treatment of her adominal pain. Date of Admission Apr 06, 2023 at 13:54 Time Seen by a Provider: 02:46 I consulted on this patient on 04/06/23 14:59 Attending Physician Lizeth Sanchez MD Admitting Physician Admitting Physician: Ashley Aceves DO Attending Physician: Ashley Aceves DO Consult Allergies and Home Medications Allergies Coded Allergies: Iodinated Contrast Media (Verified Allergy, Intermediate, SWELLLING, 02/09/12) Sulfa (Sulfonamide Antibiotics) (Unverified Allergy, Unknown, UNKNOWN, 06/04/07) codeine (Unverified Allergy, Unknown, UNKNOWN, 06/04/07) Patient Home Medication List Home Medication List Reviewed: Yes Calcium Carbonate/Vitamin D3 (Calcium 600 + Vit D Caplet) 600 Mg Calcium-10 Mcg (400 Unit) Tablet, 1 EACH PO BID, (Reported) Entered as Reported by: KORTNEY MTZ on 10/31/17 0931 Cholecalciferol (Vitamin D3) (Vitamin D3) 50 Mcg (2000 Unit) Tablet, 50 MCG PO 1230, (Reported) Entered as Reported by: NICHOLE GUERRERO on 04/27/22 09 Denosumab (Prolia) 60 Mg/Ml Disp.syrin, 60 MG SQ [id number], (Reported) Entered as Reported by: NICHOLE GUERRERO on 04/27/22 09 Ezetimibe (Ezetimibe) 10 Mg Tablet, 10 MG PO 1230, (Reported) Entered as Reported by: NICHOLE GUERRERO on 04/27/22 09 Hyoscyamine Sulfate (Levsin-Sl) 0.125 Mg Tab.subl, 0.125 MG SL Q4H PRN for ABDOMINAL PAIN Prescribed by: SALEEM MCLEAN on 04/05/23 042 Ibuprofen (Ibuprofen) 200 Mg Tablet, 600 MG PO Q6H PRN for PAIN-MILD (1-4), (Reported) Entered as Reported by: NICHOLE GUERRERO on 04/27/22 09 Levothyroxine Sodium (Levothyroxine Sodium) 50 Mcg Tablet, 50 MCG PO DAILY, (Reported) Entered as Reported by: KORTNEY MTZ on 10/31/17 09 Metronidazole (Metronidazole) 500 Mg Tablet, (Reported) Entered as Reported by: NURY WHITEHEAD on 04/05/23 0118 Multivitamin (Multivitamin) 1 Each Tablet, 1 EACH PO HS, (Reported) Entered as Reported by: NICHOLE GUERRERO on 04/27/22 09 Nitrofurantoin Macrocrystal (Nitrofurantoin) 100 Mg Capsule, 100 MG PO DAILY PRN for UTI, (Reported) Entered as Reported by: NICHOLE GUERRERO on 04/27/22 09 Ondansetron (Ondansetron Odt) 4 Mg Tab.rapdis, 4 MG PO Q6H PRN for NAUSEA/VOMITING Prescribed by: SALEEM MCLEAN on 04/05/23 0422 Rizatriptan Benzoate (Rizatriptan) 10 Mg Tablet, 10 MG PO DAILY PRN for MIGRAINE, (Reported) Entered as Reported by: NICHOLE GUERRERO on 04/27/22 0900 Past Zvorstr-Jnhzfz-Bpbjbl Hx Patient Social History Marrital Status: Tobacco Use?: No Smoking Status: Never a Smoker Use of E-Cig and/or Vaping dev: No Substance use?: No Alcohol Use?: No Pt feels they are or have been: No Immunizations Up To Date Date of Influenza Vaccine: Jul 12, 2017 Tetanus Booster (TDap): Unknown Seasonal Allergies Seasonal Allergies: Yes Current Status status: No status: No Advance Directives: Yes Advance Directive Location: Home Communicates: Verbally Primary Language: Nepalese Preferred Spoken Language: Nepalese Is interpretation needed?: No Sensory deficits: Vision impairment Implanted or Applied Medical D: Orthopedic hardware Past Medical History Surgeries: Orthopedic Sleep Apnea Currently Using CPAP: Yes Currently Using BIPAP: No High Cholesterol Headaches /Migraines Sexually Transmitted Disease: No HIV/AIDS: No Osteoporosis Hypothyroidsim Breast Did You Recieve Any Treatments: Yes What Type of Treatment Did You: Radiation, Surgical Intervention Family Medical History No Pertinent Family Hx, Other Conditions/Hx (Family does have history of diverticulitis, denies fam hx of Chrons, UC, or colon cancer) Review of Systems Constitutional: No chills; fever EENTM: No hearing loss, No vision loss, No nose congestion Respiratory: No cough, No short of breath, No wheezing Cardiovascular: No chest pain, No palpitations Gastrointestinal: abdominal pain (LLQ); No hematemesis; loss of appetite, nausea, vomiting Genitourinary: No dysuria, No hematuria Skin: No change in color Psychiatric/Neurological: Denies Headache, Denies Pre-Existing Deficit, Denies Tremors, Denies Weakness Physical Exam Vital Signs Vital Signs - First Documented 04/06/23 14:00 Temp 36.0 Pulse 88 Resp 18 B/P (MAP) 127/77 (94) Pulse Ox 100 O2 Delivery Room Air Capillary Refill : Height, Weight, BMI Height: 5'8.00" Weight: 145lbs. 0.0oz. 65.291299yv; 22.12 BMI Method:Stated General Appearance: No Apparent Distress, WD/WN HEENT: PERRL/EOMI, Moist Mucous Membranes Neck: Supple; No JVD Respiratory: Lungs Clear, Normal Breath Sounds, No Accessory Muscle Use, No Respiratory Distress Cardiovascular: Regular Rate, Rhythm, Normal Peripheral Pulses Gastrointestinal: Soft; No Distended, No Guarding; Tenderness Rectal: Deferred Extremity: Non Tender, No Pedal Edema Neurologic/Psychiatric: Alert, Oriented x3, Normal Mood/Affect Skin: Normal Color, Warm/Dry Assessment/Plan Assessment and Plan Abdominal pain N/V Fever Recent URI treated with augmentin Possible colitis/ diverticulitis CBC CMP grossly normal, no anemia, leukocytosis, or electrolyte abnormality AST and ALT elevated to low 100s, alk phos normal General surgery consulted LDH elevated at 382 Acute abdominal series pending CT in recent ED visit no acute findings Amylase and lipase within normal limits Last colonoscopy was over 5 years ago, patient does not report any acute findings at that time Pain medication and antiemesis as needed Clear liquid diet Hemodynamically stable, no signs of systemic infection NS 1L q8hr at 125 mls/hr Osteoporosis HLD Hypothyroid Migraines Hx of breast cancer MARTINEZ resume home meds Diet- clear liquid DVT ppx- SCD code status- full ASHLEY ACEVES 04/07/23 0443: Allergies and Home Medications Allergies Coded Allergies: Iodinated Contrast Media (Verified Allergy, Intermediate, SWELLLING, 02/09/12) Sulfa (Sulfonamide Antibiotics) (Unverified Allergy, Unknown, UNKNOWN, 06/04/07) codeine (Unverified Allergy, Unknown, UNKNOWN, 06/04/07) Patient Home Medication List Calcium Carbonate/Vitamin D3 (Calcium 600 + Vit D Caplet) 600 Mg Calcium-10 Mcg (400 Unit) Tablet, 1 EACH PO BID, (Reported) Entered as Reported by: KORTNEY MTZ on 10/31/17 0931 Cholecalciferol (Vitamin D3) (Vitamin D3) 50 Mcg (2000 Unit) Tablet, 50 MCG PO 1230, (Reported) Entered as Reported by: NICHOLE GUERRERO on 04/27/22 0900 Denosumab (Prolia) 60 Mg/Ml Disp.syrin, 60 MG SQ [id number], (Reported) Entered as Reported by: NICHOLE GUERRERO on 04/27/22 0900 Ezetimibe (Ezetimibe) 10 Mg Tablet, 10 MG PO 1230, (Reported) Entered as Reported by: NICHOLE GUERRERO on 04/27/22 09 Hyoscyamine Sulfate (Levsin-Sl) 0.125 Mg Tab.subl, 0.125 MG SL Q4H PRN for ABDOMINAL PAIN Prescribed by: SALEEM MCLEAN on 04/05/23 0422 Ibuprofen (Ibuprofen) 200 Mg Tablet, 600 MG PO Q6H PRN for PAIN-MILD (1-4), (Reported) Entered as Reported by: NICHOLE GUERRERO on 04/27/22 0908 Levothyroxine Sodium (Levothyroxine Sodium) 50 Mcg Tablet, 50 MCG PO DAILY, (Reported) Entered as Reported by: KORTNEY MTZ on 10/31/17 0931 Metronidazole (Metronidazole) 500 Mg Tablet, (Reported) Entered as Reported by: NURY WHITEHEAD on 04/05/23 0118 Multivitamin (Multivitamin) 1 Each Tablet, 1 EACH PO HS, (Reported) Entered as Reported by: NICHOLE GUERRERO on 04/27/22 0900 Nitrofurantoin Macrocrystal (Nitrofurantoin) 100 Mg Capsule, 100 MG PO DAILY PRN for UTI, (Reported) Entered as Reported by: NICHOLE GUERRERO on 04/27/22 0900 Ondansetron (Ondansetron Odt) 4 Mg Tab.rapdis, 4 MG PO Q6H PRN for NAUSEA/VOMITING Prescribed by: SALEEM MCLEAN on 04/05/23 0422 Rizatriptan Benzoate (Rizatriptan) 10 Mg Tablet, 10 MG PO DAILY PRN for MIGRAINE, (Reported) Entered as Reported by: NICHOLE GUERRERO on 04/27/22 0900 Assessment/Plan Assessment and Plan Appreciate Dr Hardy Pain control Abd USG in am May need repeat CT? Problems: (1) Acute abdominal pain Admission Diagnosis Admission Status: Inpatient Order (span 2 midnights) Reason for Inpatient Admission: severe abdominal pain requiring IV pain meds and surgery consultation Supervisory-Addendum Brief Verification & Attestation Participated in pt care: history, MDM, physical Personally performed: exam, history, MDM, supervision of care Care discussed with: Medical Student Procedures: n/a Results interpretation: Verified all documentation Verification and Attestation of Medical Student E/M Service A medical student performed and documented this service in my presence. I reviewed and verified all information documented by the medical student and made modifications to such information, when appropriate. I personally performed the physical exam and medical decision making. Jeremiah Clifton 28, 2023,04:44 LALIT VENCES Apr 06, 2023 15:12 ASHLEY ACEVES DO Apr 07, 2023 04:43
[2023-04-06 15:24] LABS: BACTERIA,URINE NEGATIVE /HPF
[2023-04-06 15:48] VITALS: BP 127/77
[2023-04-06] MEDS ORDERED: RT-ALBUTEROL SULF 2.5 MG/3 ML PRE-MIX VIAL INH PRN (16:00)
[2023-04-06 16:02] VITALS: BP 128/74
--- NOTE | 2023-04-06 16:55 | Diagnostic Imaging Report ---
EXAMINATION: Abdominal series and chest radiograph HISTORY: Abdominal pain, diverticulitis COMPARISON: None available. FINDINGS: A moderate amount of stool is present. No dilated bowel or free air. No edema or pneumonia. No pleural effusion or pneumothorax. Heart size is normal. IMPRESSION: 1. Clear lungs. 2. Normal bowel gas pattern. Dictated by: Dictated on workstation # [id number]
--- NOTE | 2023-04-06 17:05 | Consultation - Surgery ---
History of Present Illness History of Present Illness Patient Consulted On(nadia/time) 04/06/23 17:00 Date Seen by Provider: Apr 06, 2023 Time Seen by Provider: 17:00 History of Present Illness Consult requested by Dr. Cornejo for lower abdominal pain. Patient is a 67 year old female who about a week ago was taking Augmentin for bronchitis. Patient began having Lower abdominal pain about 4 days ago. Was started on Flagyl. Continued to have worsening pain that moves into her back. Rates it about 6/10. Worse at night. Nothing makes better or worse that she knows of. She has had decrease in stools and small melida and some mucous. Denies blood. Has been having fever. Not getting sleep due to the pain. Having nausea and emesis. Had ct scan in ED 2 nights ago which was no acute process. Did stool culture with Dr. Sanchez today who had her admitted today. Feels dehydrated but urinating and had urine tested as well and reports it was normal. Allergies and Home Medications Allergies Coded Allergies: Iodinated Contrast Media (Verified Allergy, Intermediate, SWELLLING, 02/09/12) Sulfa (Sulfonamide Antibiotics) (Unverified Allergy, Unknown, UNKNOWN, 06/04/07) codeine (Unverified Allergy, Unknown, UNKNOWN, 06/04/07) Patient Home Medication List Home Medication List Reviewed: Yes Calcium Carbonate/Vitamin D3 (Calcium 600 + Vit D Caplet) 600 Mg Calcium-10 Mcg (400 Unit) Tablet, 1 EACH PO BID, (Reported) Entered as Reported by: KORTNEY MTZ on 10/31/17 0931 Cholecalciferol (Vitamin D3) (Vitamin D3) 50 Mcg (2000 Unit) Tablet, 50 MCG PO 1230, (Reported) Entered as Reported by: NICHOLE GUERRERO on 04/27/22 0900 Denosumab (Prolia) 60 Mg/Ml Disp.syrin, 60 MG SQ [id number], (Reported) Entered as Reported by: NICHOLE GUERRERO on 04/27/22 0900 Ezetimibe (Ezetimibe) 10 Mg Tablet, 10 MG PO 1230, (Reported) Entered as Reported by: NICHOLE GUERRERO on 04/27/22 09 Hyoscyamine Sulfate (Levsin-Sl) 0.125 Mg Tab.subl, 0.125 MG SL Q4H PRN for ABDOMINAL PAIN Prescribed by: SALEEM MCLEAN on 04/05/23 0422 Ibuprofen (Ibuprofen) 200 Mg Tablet, 600 MG PO Q6H PRN for PAIN-MILD (1-4), (Reported) Entered as Reported by: NICHOLE GUERRERO on 04/27/22 0908 Levothyroxine Sodium (Levothyroxine Sodium) 50 Mcg Tablet, 50 MCG PO DAILY, (Reported) Entered as Reported by: KORTNEY MTZ on 10/31/17 0931 Metronidazole (Metronidazole) 500 Mg Tablet, (Reported) Entered as Reported by: NURY WHITEHEAD on 04/05/23 0118 Multivitamin (Multivitamin) 1 Each Tablet, 1 EACH PO HS, (Reported) Entered as Reported by: NICHOLE GUERRERO on 04/27/22 09 Nitrofurantoin Macrocrystal (Nitrofurantoin) 100 Mg Capsule, 100 MG PO DAILY PRN for UTI, (Reported) Entered as Reported by: NICHOLE GUERRERO on 04/27/22 09 Ondansetron (Ondansetron Odt) 4 Mg Tab.rapdis, 4 MG PO Q6H PRN for NAUSEA/VOMITING Prescribed by: SALEEM MCLEAN on 04/05/23 042 Rizatriptan Benzoate (Rizatriptan) 10 Mg Tablet, 10 MG PO DAILY PRN for MIGRAINE, (Reported) Entered as Reported by: NICHOLE GUERRERO on 04/27/22 09 Past Cqzpjvg-Vthyyq-Tnyefd Hx Patient Social History Smoking Status: Never a Smoker Recent Hopitalizations: No Alcohol Use?: No Immunizations Up To Date Tetanus Booster (TDap): Unknown Date of Influenza Vaccine: Jul 12, 2017 Seasonal Allergies Seasonal Allergies: Yes Surgeries History of Surgeries: Yes (lumpectomy) Surgeries: Orthopedic Respiratory Respiratory Disorders: Sleep Apnea Cardiovascular History of Cardiac Disorders: No Cardiac Disorders: High Cholesterol Neurological History of Neurological Disord: No Neurological Disorders: Headaches /Migraines Reproductive System Hx Reproductive Disorders: No Sexually Transmitted Disease: No HIV/AIDS: No Female Reproductive Disorders: Denies Musculoskeletal Musculoskeletal Disorders: Osteoporosis Endocrine Endocrine Disorders: Hypothyroidsim Cancer Cancer: Breast Reviewed Nursing Assessment Reviewed/Agree w Nursing PMH: Yes Family Medical History Significant Family History: No Pertinent Family Hx, Other Conditions/Hx (Family does have history of diverticulitis, denies fam hx of Chrons, UC, or colon cancer) Review of Systems-General Constitutional: No chills, No diaphoresis EENTM: No blurred vision, No double vision Respiratory: No cough, No dyspnea on exertion Cardiovascular: No chest pain, No palpitations Gastrointestinal: abdominal pain, nausea, vomiting Genitourinary: No decreased output, No discharge Musculoskeletal: back pain; No joint pain Skin: No change in color, No change in hair/nails Psychiatric/Neurological: Denies Anxiety, Denies Depressed, Denies Emotional Problems All Other Systems Reviewed Negative Unless Noted: Yes (Negative excepted noted.) Physical Exam-General Problems Physical Exam Vital Signs Vital Signs - First Documented 04/06/23 14:00 Temp 36.0 Pulse 88 Resp 18 B/P (MAP) 127/77 (94) Pulse Ox 100 O2 Delivery Room Air Capillary Refill : General Appearance: no apparent distress (fatigued), thin HEENT: PERRL/EOMI, normal ENT inspection Neck: non-tender, supple Respiratory: chest non-tender, no respiratory distress, no accessory muscle use Cardiovascular: regular rate, rhythm, no JVD Gastrointestinal: distended (minimall lower abdomen), tenderness (lower abdomen mild with deep palpation) Rectal: deferred Back: normal inspection, no CVA tenderness Extremities: non-tender, normal inspection Neurologic/Psychiatric: alert, normal mood/affect, oriented x 3 Skin: normal color, warm/dry Lymphatic: no adenopathy Data Review Labs Laboratory Tests 04/06/23 14:18: White Blood Count 5.9, Red Blood Count 4.58, Hemoglobin 13.3, Hematocrit 39, Mean Corpuscular Volume 85, Mean Corpuscular Hemoglobin 29, Mean Corpuscular Hemoglobin Concent 34, Red Cell Distribution Width 14.7H, Platelet Count 166, Mean Platelet Volume 10.0, Immature Granulocyte % (Auto) 2, Neutrophils (%) (Auto) 54, Lymphocytes (%) (Auto) 39, Monocytes (%) (Auto) 5, Eosinophils (%) (Auto) 0, Basophils (%) (Auto) 1, Neutrophils # (Auto) 3.1, Lymphocytes # (Auto) 2.3, Monocytes # (Auto) 0.3, Eosinophils # (Auto) 0.0, Basophils # (Auto) 0.0, Immature Granulocyte # (Auto) 0.1, Sodium Level 136, Potassium Level 3.8, Chloride Level 104, Carbon Dioxide Level 23, Anion Gap 9, Blood Urea Nitrogen 5L , Creatinine 0.76, Estimat Glomerular Filtration Rate 86, BUN/Creatinine Ratio 7, Glucose Level 111H, Calcium Level 8.9, Corrected Calcium 9.2, Total Bilirubin 0.7, Aspartate Amino Transf (AST/SGOT) 121H, Alanine Aminotransferase (ALT/SGPT) 116H, Alkaline Phosphatase 69, Lactate Dehydrogenase 382H, Total Protein 6.2L, Albumin 3.6, Amylase Level 66, Lipase 23 04/06/23 14:30: Urine Color YELLOW, Urine Clarity CLEAR, Urine pH 7.5, Urine Specific [place] 1.010L, Urine Protein NEGATIVE, Urine Glucose (UA) NEGATIVE, Urine Ketones TRACEH, Urine Nitrite NEGATIVE, Urine Bilirubin NEGATIVE, Urine Urobilinogen 0.2, Urine Leukocyte Esterase NEGATIVE, Urine RBC (Auto) NEGATIVE, Urine RBC NONE, Urine WBC NONE, Urine Crystals NONE, Urine Bacteria NEGATIVE, Urine Casts NONE, Urine Mucus NEGATIVE, Urine Culture Indicated NO Assessment/Plan Assessment/Plan Assessment/Plan lower abdominal pain nausea/vomiting constipation reviewed ct appears to have some colonic constipation otherwise normal from recent er visit white count normal last colonoscopy was 5 years ago would recommend repeating in near future acute abdominal series to see if any change clear liquids iv fluid pain control stool culture done at Dr. Sanchez's NATTY MONTERO DO Apr 06, 2023 17:05
[2023-04-06 19:03] VITALS: BP 116/72
[2023-04-06] MEDS: DOCUSATE SODIUM 100 MG CAPSULE PO SCH (19:50)
[2023-04-06] MEDS: SENNOSIDES 8.6 MG (SENOKOT) TAB PO SCH (19:51)
[2023-04-06] MEDS ORDERED: fentaNYL INJ 100 MCG/2 ML AMP IVP PRN (20:15)
[2023-04-06 23:34] VITALS: BP 115/64
[2023-04-07] MEDS: ONDANSETRON 4 MG/2 ML (SDV) Z0FRAN IV PRN (03:51)
[2023-04-07 03:55] VITALS: BP 127/69
[2023-04-07] MEDS: fentaNYL INJ 100 MCG/2 ML AMP IVP PRN (04:05)
[2023-04-07 05:47] LABS: BASOPHILS # (AUTO) 0.1 10^3/uL (0.0-0.1); BASOPHILS % (AUTO) 1 % (0-10); EOSINOPHILS % (AUTO) 1 % (0-10); HEMATOCRIT 37 % (35-52); HEMOGLOBIN 12.2 g/dL (11.5-16.0); LYMPHOCYTES # (AUTO) 2.6 10^3/uL (1.0-4.0); LYMPHOCYTES % (AUTO) 47 % (12-44); MEAN CORPUSCULAR HEMOGLOBIN 29 pg (25-34); MEAN CORPUSCULAR HGB CONC 33 g/dL (32-36); MEAN CORPUSCULAR VOLUME 86 fL (80-99); MEAN PLATELET VOLUME 10.2 fL (9.0-12.2); MONOCYTES # (AUTO) 0.4 10^3/uL (0.0-1.0); MONOCYTES % (AUTO) 7 % (0-12); NEUTROPHILS # (AUTO) 2.3 10^3/uL (1.8-7.8); NEUTROPHILS % (AUTO) 43 % (42-75); PLATELET COUNT 144 10^3/uL (130-400); WHITE BLOOD COUNT 5.5 10^3/uL (4.3-11.0)
[2023-04-07 05:54] LABS: POTASSIUM 3.6 MMOL/L (3.6-5.0)
[2023-04-07 05:55] LABS: CALCIUM 7.9 MG/DL (8.5-10.1)
[2023-04-07 05:56] LABS: TOTAL PROTEIN 5.1 GM/DL (6.4-8.2)
[2023-04-07 05:58] LABS: BILIRUBIN,TOTAL 0.5 MG/DL (0.1-1.0)
[2023-04-07 06:00] LABS: CREATININE SERUM 0.69 MG/DL (0.60-1.30)
[2023-04-07 06:03] LABS: INR 1.2 (0.8-1.4)
[2023-04-07 06:13] LABS: ERYTHROCYTE SEDIMENTATION RATE 8 MM/HR (0-30)
[2023-04-07] MEDS: NS IV 1000 ML 1,000 ML IV SCH ×3 (06:44→22:45)
[2023-04-07] MEDS: SENNOSIDES 8.6 MG (SENOKOT) TAB PO SCH ×2 (07:57→20:40)
[2023-04-07] MEDS: DOCUSATE SODIUM 100 MG CAPSULE PO SCH ×2 (07:57→20:40)
[2023-04-07 08:59] VITALS: BP 133/74
[2023-04-07] MEDS: ONDANSETRON 4 MG (ZOFRAN) ORAL DISSOLVE TAB PO PRN (09:12)
[2023-04-07] MEDS ORDERED: diphenhydrAMINE 25 MG TABLET PO ONE (09:15)
--- NOTE | 2023-04-07 09:52 | Progress Note - Surgery ---
Subjective Date Seen by a Provider: Apr 07, 2023 Time Seen by a Provider: 09:52 Subjective/Events-last exam Did not have a good night. Having pain in the lower abdomen. Started passing more flatus. Having some dry heaves. No fever. Denies sweats chills shortness of breath or chest pain. Objective Exam Vital Signs Date Time Temp Pulse Resp B/P (MAP) Pulse Ox O2 Delivery O2 Flow Rate FiO2 04/07/23 08:59 36.4 84 18 133/74 (93) 99 Room Air 04/07/23 08:00 Room Air 04/07/23 03:55 36.3 77 18 127/69 (88) 100 Room Air 04/06/23 23:34 37.1 75 18 115/64 (81) 100 Room Air 04/06/23 22:00 99 Room Air 04/06/23 20:00 Room Air 04/06/23 19:03 37.3 93 16 116/72 (87) 97 Room Air 04/06/23 16:20 Room Air 04/06/23 16:02 37.5 94 17 128/74 (92) 100 Room Air 04/06/23 15:48 36.0 88 100 04/06/23 14:00 36.0 88 18 127/77 (94) 100 Room Air I & O 04/07/23 07:00 Intake Total 1015 ml Output Total 1150 ml Balance -135 ml Capillary Refill : General Appearance: WD/WN, Other (uncomfortable) HEENT: PERRL/EOMI, Moist Mucous Membranes Neck: Non Tender, Supple; No JVD Respiratory: Lungs Clear, Normal Breath Sounds, No Accessory Muscle Use, No Respiratory Distress Cardiovascular: Regular Rate, Rhythm, Normal Peripheral Pulses Gastrointestinal: distended (minimall lower abdomen), tenderness (lower abdomen mild with deep palpation) Extremity: Non Tender, No Pedal Edema Neurologic/Psychiatric: Alert, Oriented x3, Normal Mood/Affect Skin: Normal Color, Warm/Dry Lymphatic: No Adenopathy Results Lab Laboratory Tests 04/06/23 14:18: White Blood Count 5.9, Red Blood Count 4.58, Hemoglobin 13.3, Hematocrit 39, Mean Corpuscular Volume 85, Mean Corpuscular Hemoglobin 29, Mean Corpuscular Hemoglobin Concent 34, Red Cell Distribution Width 14.7H, Platelet Count 166, Mean Platelet Volume 10.0, Immature Granulocyte % (Auto) 2, Neutrophils (%) (Auto) 54, Lymphocytes (%) (Auto) 39, Monocytes (%) (Auto) 5, Eosinophils (%) (Auto) 0, Basophils (%) (Auto) 1, Neutrophils # (Auto) 3.1, Lymphocytes # (Auto) 2.3, Monocytes # (Auto) 0.3, Eosinophils # (Auto) 0.0, Basophils # (Auto) 0.0, Immature Granulocyte # (Auto) 0.1, Sodium Level 136, Potassium Level 3.8, Chloride Level 104, Carbon Dioxide Level 23, Anion Gap 9, Blood Urea Nitrogen 5L , Creatinine 0.76, Estimat Glomerular Filtration Rate 86, BUN/Creatinine Ratio 7, Glucose Level 111H, Calcium Level 8.9, Corrected Calcium 9.2, Total Bilirubin 0.7, Aspartate Amino Transf (AST/SGOT) 121H, Alanine Aminotransferase (ALT/SGPT) 116H, Alkaline Phosphatase 69, Lactate Dehydrogenase 382H, Total Protein 6.2L, Albumin 3.6, Amylase Level 66, Lipase 23 04/06/23 14:30: Urine Color YELLOW, Urine Clarity CLEAR, Urine pH 7.5, Urine Specific [place] 1.010L, Urine Protein NEGATIVE, Urine Glucose (UA) NEGATIVE, Urine Ketones TRACEH, Urine Nitrite NEGATIVE, Urine Bilirubin NEGATIVE, Urine Urobilinogen 0.2, Urine Leukocyte Esterase NEGATIVE, Urine RBC (Auto) NEGATIVE, Urine RBC NONE, Urine WBC NONE, Urine Crystals NONE, Urine Bacteria NEGATIVE, Urine Casts NONE, Urine Mucus NEGATIVE, Urine Culture Indicated NO 04/07/23 05:20: White Blood Count 5.5, Red Blood Count 4.24, Hemoglobin 12.2, Hematocrit 37, Mean Corpuscular Volume 86, Mean Corpuscular Hemoglobin 29, Mean Corpuscular Hemoglobin Concent 33, Red Cell Distribution Width 14.9H, Platelet Count 144, Mean Platelet Volume 10.2, Immature Granulocyte % (Auto) 1, Neutrophils (%) (Auto) 43, Lymphocytes (%) (Auto) 47H, Monocytes (%) (Auto) 7, Eosinophils (%) (Auto) 1, Basophils (%) (Auto) 1, Neutrophils # (Auto) 2.3, Lymphocytes # (Auto) 2.6, Monocytes # (Auto) 0.4, Eosinophils # (Auto) 0.0, Basophils # (Auto) 0.1, Immature Granulocyte # (Auto) 0.1, Sodium Level 135, Potassium Level 3.6, Chloride Level 108H, Carbon Dioxide Level 21, Anion Gap 6, Blood Urea Nitrogen 5L, Creatinine 0.69, Estimat Glomerular Filtration Rate 96, BUN/Creatinine Ratio 7, Glucose Level 103, Calcium Level 7.9L, Corrected Calcium 8.7, Total Bilirubin 0.5, Aspartate Amino Transf (AST/SGOT) 140H, Alanine Aminotransferase (ALT/SGPT) 124H, Alkaline Phosphatase 59, Total Protein 5.1L, Albumin 3.0L, Erythrocyte Sedimentation Rate 8, Prothrombin Time 15.0H, INR Comment 1.2, C-Reactive Protein High Sensitivity 0.75H 04/07/23 06:24: Assessment/Plan Assessment/Plan Assessment/Plan lower abdominal pain nausea/vomiting constipation reviewed ct appears to have some colonic constipation otherwise normal from recent er visit white count normal last colonoscopy was 5 years ago would recommend repeating in near future will get small bowel follow through today this will also help clean out the colon clear liquids liver enzymes elevated u/s normal, has been taking recently increasing amount of Tylenol/ibuprofen which may be cause. iv fluid pain control stool culture done at Dr. Sanchez's NATTY MONTERO DO Apr 07, 2023 09:52
--- NOTE | 2023-04-07 10:37 | Progress Note ---
MANFRED VELAZQUEZ 04/07/23 1037: Subjective Date Seen by a Provider: Apr 07, 2023 Time Seen by a Provider: 09:10 Subjective/Events-last exam Our patient is a 67 yo F who was admitted for severe lower abdominal pain, fever, nausea and vomiting. She states that she had a rough night and that her pain is around a 7-8/10 in severity. It stretches across her lower abdomen with the greatest serverity in the left lower quadrant. Notes radiation to the back with accompanying nausea, vomiting, and headache. She denies chills, dysuria, urinary frequency, chest pain, or SOB. She hasn't had a bowel movement for 3 days and notes that her stools were small and hard at that time. Her last colonoscopy was 5 years ago and was normal. Hospital Course Our patient is a 67 yo F with a past medical history of osteoporosis, HLD, hypothyroidism, migraines, and breast cancer who was admitted directly from Dr Sanchez's office for severe lower abdominal pain that is worse in the LLQ as well as fever and constipation for the past 4 days. She was recently treated with augmentin for bronchitis and began to have symptoms shortly after finishing her dose. She reported this to Dr. Sanchez who then switched her to metronidazole for possible pseudomembraneous colitis. Initial labwork was largely normal aside from some mild elevation in her transaminases. Imaging studies were suggestive of constipation but showed no dilated bowel or free air. No edema or pneumonia was seen and lungs were clear. Abdominal ultrasound was unremarkable with no dilated ducts witnessed. Her pain was difficult to control during her stay, requiring up to 100 mcg of fentanyl every two hours. Surgical consult was ordered and she underwent a small bowel follow-through. Soon after she began having bowel movements and her pain improved. She was advised to schedule a colonoscopy in the near future. Review of Systems General: No Chills, No Night Sweats HEENT: Head Aches Pulmonary: No Dyspnea, No Cough, No Pleuritic Chest Pain Cardiovascular: No: Chest Pain, Palpitations, Lt Headedness Gastrointestinal: Nausea, Vomiting, Abdominal Pain (Band-like across lower abdomen), Constipation Genitourinary: No Dysuria, No Frequency Musculoskeletal: back pain Neurological: No: Change in speech, Confusion Objective Exam Last Set of Vital Signs Vital Signs Date Time Temp Pulse Resp B/P (MAP) Pulse Ox O2 Delivery O2 Flow Rate FiO2 04/07/23 08:59 36.4 84 18 133/74 (93) 99 Room Air Capillary Refill : I&O Intake and Output 04/07/23 00:00 Intake Total 965 ml Output Total 1150 ml Balance -185 ml Intake Oral 965 ml Output Urine Total 1150 ml Daily Weight Change Unsure General: Alert, Oriented X3, Cooperative, Mild Distress HEENT: Atraumatic, PERRLA, EOMI Neck: Supple, No JVD, +2 Carotid Pulse No Bruit Lungs: Clear to Auscultation, Normal Air Movement Heart: Regular Rate, Normal S1, Normal S2, No Murmurs Abdomen: Normal Bowel Sounds, Soft, Other (Significant tenderness across the lower abdomen with the greatest severity in the left lower quadrant. Harding's sign negative.) Extremities: No Clubbing, No Cyanosis, Normal Pulses, Other (Trace, pitting pedal edema) Skin: No Rashes, No Breakdown, No Significant Lesion Neuro: Normal Speech, Sensation Intact Psych/Mental Status: Mental Status NL, Mood NL Results Lab Laboratory Tests 04/06/23 14:18: White Blood Count 5.9, Red Blood Count 4.58, Hemoglobin 13.3, Hematocrit 39, Mean Corpuscular Volume 85, Mean Corpuscular Hemoglobin 29, Mean Corpuscular Hemoglobin Concent 34, Red Cell Distribution Width 14.7H, Platelet Count 166, Mean Platelet Volume 10.0, Immature Granulocyte % (Auto) 2, Neutrophils (%) (Auto) 54, Lymphocytes (%) (Auto) 39, Monocytes (%) (Auto) 5, Eosinophils (%) (Auto) 0, Basophils (%) (Auto) 1, Neutrophils # (Auto) 3.1, Lymphocytes # (Auto) 2.3, Monocytes # (Auto) 0.3, Eosinophils # (Auto) 0.0, Basophils # (Auto) 0.0, Immature Granulocyte # (Auto) 0.1, Sodium Level 136, Potassium Level 3.8, Chloride Level 104, Carbon Dioxide Level 23, Anion Gap 9, Blood Urea Nitrogen 5L , Creatinine 0.76, Estimat Glomerular Filtration Rate 86, BUN/Creatinine Ratio 7, Glucose Level 111H, Calcium Level 8.9, Corrected Calcium 9.2, Total Bilirubin 0.7, Aspartate Amino Transf (AST/SGOT) 121H, Alanine Aminotransferase (ALT/SGPT) 116H, Alkaline Phosphatase 69, Lactate Dehydrogenase 382H, Total Protein 6.2L, Albumin 3.6, Amylase Level 66, Lipase 23 04/06/23 14:30: Urine Color YELLOW, Urine Clarity CLEAR, Urine pH 7.5, Urine Specific [place] 1.010L, Urine Protein NEGATIVE, Urine Glucose (UA) NEGATIVE, Urine Ketones TRACEH, Urine Nitrite NEGATIVE, Urine Bilirubin NEGATIVE, Urine Urobilinogen 0.2, Urine Leukocyte Esterase NEGATIVE, Urine RBC (Auto) NEGATIVE, Urine RBC NONE, Urine WBC NONE, Urine Crystals NONE, Urine Bacteria NEGATIVE, Urine Casts NONE, Urine Mucus NEGATIVE, Urine Culture Indicated NO 04/07/23 05:20: White Blood Count 5.5, Red Blood Count 4.24, Hemoglobin 12.2, Hematocrit 37, Mean Corpuscular Volume 86, Mean Corpuscular Hemoglobin 29, Mean Corpuscular Hemoglobin Concent 33, Red Cell Distribution Width 14.9H, Platelet Count 144, Mean Platelet Volume 10.2, Immature Granulocyte % (Auto) 1, Neutrophils (%) (Auto) 43, Lymphocytes (%) (Auto) 47H, Monocytes (%) (Auto) 7, Eosinophils (%) (Auto) 1, Basophils (%) (Auto) 1, Neutrophils # (Auto) 2.3, Lymphocytes # (Auto) 2.6, Monocytes # (Auto) 0.4, Eosinophils # (Auto) 0.0, Basophils # (Auto) 0.1, Immature Granulocyte # (Auto) 0.1, Sodium Level 135, Potassium Level 3.6, Chloride Level 108H, Carbon Dioxide Level 21, Anion Gap 6, Blood Urea Nitrogen 5L, Creatinine 0.69, Estimat Glomerular Filtration Rate 96, BUN/Creatinine Ratio 7, Glucose Level 103, Calcium Level 7.9L, Corrected Calcium 8.7, Total Bilirubin 0.5, Aspartate Amino Transf (AST/SGOT) 140H, Alanine Aminotransferase (ALT/SGPT) 124H, Alkaline Phosphatase 59, Total Protein 5.1L, Albumin 3.0L, Erythrocyte Sedimentation Rate 8, Prothrombin Time 15.0H, INR Comment 1.2, C-Reactive Protein High Sensitivity 0.75H 04/07/23 06:24: Meds As indicated in medications list Radiology Date of Exam:04/06/23 ACUTE ABD SERIES EXAMINATION: Abdominal series and chest radiograph HISTORY: Abdominal pain, diverticulitis COMPARISON: None available. FINDINGS: A moderate amount of stool is present. No dilated bowel or free air. No edema or pneumonia. No pleural effusion or pneumothorax. Heart size is normal. IMPRESSION: 1. Clear lungs. 2. Normal bowel gas pattern. Dictated by: Dictated on workstation # [id number] Dict: 04/06/23 1654 Trans: 04/06/23 1711 CVB [id number] Interpreted by: ESTER VÁSQUEZ MD Electronically signed by: ESTER VÁSQUEZ MD 04/06/23 1711 Abdominal ultrasound pending Procedures Procedures Patient to undergo a small bowel study Assessment/Plan Assessment/Plan Assess & Plan/Chief Complaint Lower Abdominal Pain N/V Fever - resolved Recent URI treated with augmentin Moderate stool burden -Pain remain substantial at 7-8 out of 10 with fentanyl 100 mcg Q2Hr -Acute abdominal series showed clear lungs and a normal bowel gas pattern -Patient to undergo small bowel study today -CBC CMP grossly normal, no anemia, leukocytosis, or electrolyte abnormality -AST and ALT somewhat increased since admission -LDH elevated at 382 -CT in recent ED visit no acute findings -Amylase and lipase within normal limits -Last colonoscopy was around 5 years ago, patient does not report any acute findings at that time -Continue ondansetron for nausea -NPO -Hemodynamically stable, no signs of systemic infection -Continue fluid supplementation Osteoporosis HLD Hypothyroid Migraines Hx of breast cancer MARTINEZ -resume home meds Hold bowel regimen for the time being Diet- NPO DVT prophylaxis- SCDs Disposition- Admitted to general admission code status- full ASHLEY ACEVES DO 04/07/23 1422: Supervisory-Addendum Brief Verification & Attestation Participated in pt care: history, MDM, physical Personally performed: exam, history, MDM, supervision of care Care discussed with: Medical Student Procedures: n/a Results interpretation: Verified all documentation Verification and Attestation of Medical Student E/M Service A medical student performed and documented this service in my presence. I reviewed and verified all information documented by the medical student and made modifications to such information, when appropriate. I personally performed the physical exam and medical decision making. Ashley Aceves Apr 07, 2023,14:21 MANFRED VELAZQUEZ Apr 07, 2023 10:37 ASHLEY ACEVES DO Apr 07, 2023 14:22
--- NOTE | 2023-04-07 10:44 | Diagnostic Imaging Report ---
CLINICAL INDICATION: Patient is 67 years old with elevated LFTs. EXAM: Right upper quadrant ultrasound. COMPARISON: CT scan of the abdomen and pelvis without contrast dated 04/05/2023. FINDINGS: The pancreas has normal echogenicity and configuration. Pancreas shows no significant abnormality. The abdominal aorta and IVC are unremarkable, as visualized. The liver has normal echogenicity and echotexture. The liver measures up to 16 cm. The main portal vein demonstrates hepatopetal flow. There is no intrahepatic or extrahepatic ductal dilation. The common bile duct measures 6 mm which is within normal limits for patient's age. The gallbladder is unremarkable with no stone. There is no significant gallbladder wall thickening. There is no sonographic Harding's sign. The right kidney measures 10.2 cm in craniocaudal dimensions. There is no hydronephrosis. There is no abdominal ascites. IMPRESSION: Unremarkable right upper quadrant ultrasound. There are no dilated ducts. Dictated by: Dictated on workstation # [id number]
[2023-04-07] MEDS ORDERED: DIATRIZOATE MEGLUM/SODIUM 37% 120 ML (GASTROGRAFIN) PO ONE (11:15)
[2023-04-07 12:00] VITALS: BP 128/76
[2023-04-07 13:11] VITALS: BP 128/76
[2023-04-07] MEDS ORDERED: ROSU5TAB13 PO (13:45)
[2023-04-07] MEDS ORDERED: LEVO75TA6 PO (13:45)
--- NOTE | 2023-04-07 15:27 | Diagnostic Imaging Report ---
EXAMINATION: Small bowel follow-through. HISTORY: Abdominal pain. COMPARISON: None available. FINDINGS: [employer] film shows no dilated loop of bowel. Gastrografin was administered into the stomach. Contrast filled nondilated loops of small bowel. By 3 hours and 20 minutes contrast was in the colon. No mass or stricture is seen. No leakage of contrast. IMPRESSION: Normal small bowel follow-through. Dictated by: Dictated on workstation # [id number]
[2023-04-07 16:36] VITALS: BP 126/65
[2023-04-07 19:14] VITALS: BP 147/75
[2023-04-07 23:08] LABS: HEPATITIS C ANTIBODY C Non-Reactive (Non-Reactive)
[2023-04-08] VITALS (7 sets, daily range): BP systolic 106–132; BP diastolic 65–76
[2023-04-08 05:30] LABS: BASOPHILS % (AUTO) 1 % (0-10); EOSINOPHILS % (AUTO) 0 % (0-10); HEMATOCRIT 35 % (35-52); HEMOGLOBIN 11.9 g/dL (11.5-16.0); LYMPHOCYTES # (AUTO) 2.6 10^3/uL (1.0-4.0); LYMPHOCYTES % (AUTO) 45 % (12-44); MEAN CORPUSCULAR HEMOGLOBIN 29 pg (25-34); MEAN CORPUSCULAR HGB CONC 34 g/dL (32-36); MEAN CORPUSCULAR VOLUME 86 fL (80-99); MEAN PLATELET VOLUME 9.4 fL (9.0-12.2); MONOCYTES # (AUTO) 0.5 10^3/uL (0.0-1.0); MONOCYTES % (AUTO) 8 % (0-12); NEUTROPHILS # (AUTO) 2.6 10^3/uL (1.8-7.8); NEUTROPHILS % (AUTO) 44 % (42-75); PLATELET COUNT 160 10^3/uL (130-400); WHITE BLOOD COUNT 5.8 10^3/uL (4.3-11.0)
[2023-04-08 05:42] LABS: ALBUMIN 3.1 GM/DL (3.2-4.5)
[2023-04-08 05:43] LABS: POTASSIUM 3.5 MMOL/L (3.6-5.0)
[2023-04-08 05:44] LABS: CALCIUM 7.6 MG/DL (8.5-10.1)
[2023-04-08 05:45] LABS: TOTAL PROTEIN 5.3 GM/DL (6.4-8.2)
[2023-04-08 05:47] LABS: BILIRUBIN,TOTAL 0.6 MG/DL (0.1-1.0)
[2023-04-08 05:49] LABS: CREATININE SERUM 0.66 MG/DL (0.60-1.30)
[2023-04-08] MEDS: NS IV 1000 ML 1,000 ML IV SCH ×3 (06:51→15:48)
[2023-04-08] MEDS: SENNOSIDES 8.6 MG (SENOKOT) TAB PO SCH ×2 (08:38→20:43)
[2023-04-08] MEDS: DOCUSATE SODIUM 100 MG CAPSULE PO SCH ×2 (08:39→20:43)
--- NOTE | 2023-04-08 09:12 | Progress Note - Surgery ---
Subjective Date Seen by a Provider: Apr 08, 2023 Time Seen by a Provider: 09:12 Subjective/Events-last exam Still with lower abdominal pain but more on left side and into back. Passing flatus and some diarrhea. Not having nausea. No fever overnight. Tolerating clear liquids. Denies n/v sweats chills shortness of breath or chest pain. Objective Exam Vital Signs Date Time Temp Pulse Resp B/P (MAP) Pulse Ox O2 Delivery O2 Flow Rate FiO2 04/08/23 08:41 36.9 93 18 111/65 (80) 97 Room Air 04/08/23 08:00 Room Air 04/08/23 03:55 36.7 94 16 106/76 (86) 98 Room Air 04/08/23 00:12 36.2 93 16 124/69 (87) 99 Room Air 04/07/23 20:00 Room Air 04/07/23 19:14 37.6 95 18 147/75 (99) 99 Room Air 04/07/23 16:36 37.1 98 18 126/65 (85) 98 Room Air 04/07/23 13:11 36.8 82 18 128/76 (93) 100 Room Air 04/07/23 12:00 36.8 82 18 128/76 (93) 100 Room Air I & O 04/08/23 07:00 Intake Total 1435 ml Output Total 900 ml Balance 535 ml Capillary Refill : General Appearance: WD/WN, Other (uncomfortable) HEENT: PERRL/EOMI, Moist Mucous Membranes Neck: Non Tender, Supple; No JVD Respiratory: Chest Non Tender, No Accessory Muscle Use, No Respiratory Distress Cardiovascular: Regular Rate, Rhythm, No JVD Gastrointestinal: distended (minimall lower abdomen), tenderness (lower abdomen mild with deep palpation mostly on left side) Extremity: Non Tender, No Pedal Edema Neurologic/Psychiatric: Alert, Oriented x3, Normal Mood/Affect Skin: Normal Color, Warm/Dry Lymphatic: No Adenopathy Results Lab Laboratory Tests 04/08/23 05:25: White Blood Count 5.8, Red Blood Count 4.11, Hemoglobin 11.9, Hematocrit 35, Mean Corpuscular Volume 86, Mean Corpuscular Hemoglobin 29, Mean Corpuscular Hemoglobin Concent 34, Red Cell Distribution Width 15.0H, Platelet Count 160, Mean Platelet Volume 9.4, Immature Granulocyte % (Auto) 1, Neutrophils (%) (Auto) 44, Lymphocytes (%) (Auto) 45H, Monocytes (%) (Auto) 8, Eosinophils (%) (Auto) 0, Basophils (%) (Auto) 1, Neutrophils # (Auto) 2.6, Lymphocytes # (Auto) 2.6, Monocytes # (Auto) 0.5, Eosinophils # (Auto) 0.0, Basophils # (Auto) 0.0, Immature Granulocyte # (Auto) 0.1, Sodium Level 135, Potassium Level 3.5L, Chloride Level 108H, Carbon Dioxide Level 20L, Anion Gap 7, Blood Urea Nitrogen 4L, Creatinine 0.66, Estimat Glomerular Filtration Rate 97, BUN/Creatinine Ratio 6, Glucose Level 109H, Calcium Level 7.6L, Corrected Calcium 8.3L, Total Bilirubin 0.6, Aspartate Amino Transf (AST/SGOT) 148H, Alanine Aminotransferase (ALT/SGPT) 156H, Alkaline Phosphatase 59, Total Protein 5.3L, Albumin 3.1L Assessment/Plan Assessment/Plan Assessment/Plan lower abdominal pain nausea/vomiting constipation reviewed ct appears to have some colonic constipation otherwise normal from recent er visit white count normal last colonoscopy was 5 years ago would recommend repeating in near future small bowel follow through was normal clear liquids liver enzymes elevated u/s normal, has been taking recently increasing amount of Tylenol/ibuprofen which may be cause. iv fluid pain control stool culture done at Dr. Sanchez's will start Vancomycin oral If no better tomorrow will repeat ct c contrast tomorrow NATTY MONTERO DO Apr 08, 2023 09:12
[2023-04-08] MEDS: VANCOMYCIN 125 MG CAPSULE PO SCH ×3 (09:43→20:43)
--- NOTE | 2023-04-08 12:34 | Progress Note ---
Subjective Date Seen by a Provider: Apr 08, 2023 Time Seen by a Provider: 12:30 Subjective/Events-last exam Not much improvement in abdominal pain Vanc started empirically Re CT scan tomorrow if not improved Watery stools but so significant evacuation as we would expect given stool load on imaging Review of Systems Gastrointestinal: Abdominal Pain Objective Exam Last Set of Vital Signs Vital Signs Date Time Temp Pulse Resp B/P (MAP) Pulse Ox O2 Delivery O2 Flow Rate FiO2 04/08/23 11:52 36.8 83 18 121/66 (84) 98 Room Air Capillary Refill : I&O Intake and Output 04/08/23 00:00 Intake Total 1285 ml Output Total 900 ml Balance 385 ml Intake Oral 1285 ml Output Urine Total 900 ml # Voids 9 # Bowel Movements 3 General: Alert, Oriented X3, Cooperative, No Acute Distress Lungs: Clear to Auscultation, Normal Air Movement Heart: Regular Rate, Normal S1, Normal S2, No Murmurs Psych/Mental Status: Mental Status NL, Mood NL Results Lab Laboratory Tests 04/08/23 05:25: White Blood Count 5.8, Red Blood Count 4.11, Hemoglobin 11.9, Hematocrit 35, Mean Corpuscular Volume 86, Mean Corpuscular Hemoglobin 29, Mean Corpuscular Hemoglobin Concent 34, Red Cell Distribution Width 15.0H, Platelet Count 160, Mean Platelet Volume 9.4, Immature Granulocyte % (Auto) 1, Neutrophils (%) (Auto) 44, Lymphocytes (%) (Auto) 45H, Monocytes (%) (Auto) 8, Eosinophils (%) (Auto) 0, Basophils (%) (Auto) 1, Neutrophils # (Auto) 2.6, Lymphocytes # (Auto) 2.6, Monocytes # (Auto) 0.5, Eosinophils # (Auto) 0.0, Basophils # (Auto) 0.0, Immature Granulocyte # (Auto) 0.1, Sodium Level 135, Potassium Level 3.5L, Chloride Level 108H, Carbon Dioxide Level 20L, Anion Gap 7, Blood Urea Nitrogen 4L, Creatinine 0.66, Estimat Glomerular Filtration Rate 97, BUN/Creatinine Ratio 6, Glucose Level 109H, Calcium Level 7.6L, Corrected Calcium 8.3L, Total Bilirubin 0.6, Aspartate Amino Transf (AST/SGOT) 148H, Alanine Aminotransferase (ALT/SGPT) 156H, Alkaline Phosphatase 59, Total Protein 5.3L, Albumin 3.1L Assessment/Plan Assessment/Plan Assess & Plan/Chief Complaint Assessment: Severe and refractory abdominal pain Stool load on CT scan Recent UTI completed Augmentin MARTINEZ h/o breast cancer Lovenox for DVT PPx since it appears she will not need surgery Elevated LFT's but CT USG normal Plan: Monitor closely Pain meds Vanc PO empirically in case atypical C diff Diagnosis/Problems Diagnosis/Problems (1) Acute abdominal pain Clinical Quality Measures Admission Status Admission Dx Appreciate Dr Hardy Pain control Abd USG in am May need repeat CT? ANSON ACEVES DO Apr 08, 2023 12:34
[2023-04-08] MEDS: ENOXAPARIN 40 MG/0.4 ML SYRINGE SC SCH (13:53)
[2023-04-09] VITALS (7 sets, daily range): BP systolic 116–138; BP diastolic 63–76
[2023-04-09] MEDS: ONDANSETRON 4 MG (ZOFRAN) ORAL DISSOLVE TAB PO PRN (00:56)
[2023-04-09] MEDS: fentaNYL INJ 100 MCG/2 ML AMP IVP PRN ×2 (00:56→04:54)
[2023-04-09] MEDS: VANCOMYCIN 125 MG CAPSULE PO SCH ×4 (03:20→21:12)
[2023-04-09] MEDS: NS IV 1000 ML 1,000 ML IV SCH ×2 (04:53→19:30)
[2023-04-09] MEDS: ONDANSETRON 4 MG/2 ML (SDV) Z0FRAN IV PRN (04:54)
[2023-04-09 05:49] LABS: BASOPHILS % (AUTO) 1 % (0-10); EOSINOPHILS % (AUTO) 1 % (0-10); HEMATOCRIT 33 % (35-52); HEMOGLOBIN 10.9 g/dL (11.5-16.0); LYMPHOCYTES # (AUTO) 2.4 10^3/uL (1.0-4.0); LYMPHOCYTES % (AUTO) 52 % (12-44); MEAN CORPUSCULAR HEMOGLOBIN 29 pg (25-34); MEAN CORPUSCULAR HGB CONC 34 g/dL (32-36); MEAN CORPUSCULAR VOLUME 86 fL (80-99); MEAN PLATELET VOLUME 9.5 fL (9.0-12.2); MONOCYTES # (AUTO) 0.4 10^3/uL (0.0-1.0); MONOCYTES % (AUTO) 9 % (0-12); NEUTROPHILS # (AUTO) 1.7 10^3/uL (1.8-7.8); NEUTROPHILS % (AUTO) 36 % (42-75); PLATELET COUNT 144 10^3/uL (130-400); WHITE BLOOD COUNT 4.6 10^3/uL (4.3-11.0)
[2023-04-09 05:59] LABS: ALBUMIN 2.8 GM/DL (3.2-4.5)
[2023-04-09 06:00] LABS: POTASSIUM 3.1 MMOL/L (3.6-5.0)
[2023-04-09 06:01] LABS: CALCIUM 7.4 MG/DL (8.5-10.1)
[2023-04-09 06:02] LABS: TOTAL PROTEIN 4.8 GM/DL (6.4-8.2)
[2023-04-09 06:04] LABS: BILIRUBIN,TOTAL 0.5 MG/DL (0.1-1.0)
[2023-04-09 06:06] LABS: CREATININE SERUM 0.61 MG/DL (0.60-1.30)
--- NOTE | 2023-04-09 06:46 | Progress Note ---
Subjective Date Seen by a Provider: Apr 09, 2023 Time Seen by a Provider: 11:00 Subjective/Events-last exam Patient doing about the same CT scan ordered with IV contrast per Dr. Hardy Having more formed stools CT scan shows mural thickening in both large and small intestine Pain is about the same except last night it was worse and she took Fentanyl Gave information printed off on Enteritis and she will read up on it Review of Systems Gastrointestinal: Nausea, Abdominal Pain Objective Exam Last Set of Vital Signs Vital Signs Date Time Temp Pulse Resp B/P (MAP) Pulse Ox O2 Delivery O2 Flow Rate FiO2 04/09/23 03:14 36.6 82 16 127/70 (89) 98 Room Air 04/09/23 02:56 21 Capillary Refill : I&O Intake and Output 04/08/23 23:59 Intake Total 2405 ml Balance 2405 ml Intake Oral 1405 ml IV Total 1000 ml # Voids 12 # Bowel Movements 10 General: Alert, Oriented X3, Cooperative, No Acute Distress Lungs: Clear to Auscultation, Normal Air Movement Heart: Regular Rate, Normal S1, Normal S2, No Murmurs Psych/Mental Status: Mental Status NL, Mood NL Results Lab Laboratory Tests 04/09/23 05:37: White Blood Count 4.6, Red Blood Count 3.77L, Hemoglobin 10.9L, Hematocrit 33L, Mean Corpuscular Volume 86, Mean Corpuscular Hemoglobin 29, Mean Corpuscular Hemoglobin Concent 34, Red Cell Distribution Width 15.3H, Platelet Count 144, Mean Platelet Volume 9.5, Immature Granulocyte % (Auto) 1, Neutrophils (%) (Auto) 36L, Lymphocytes (%) (Auto) 52H, Monocytes (%) (Auto) 9, Eosinophils (%) (Auto) 1, Basophils (%) (Auto) 1, Neutrophils # (Auto) 1.7L, Lymphocytes # (Auto) 2.4, Monocytes # (Auto) 0.4, Eosinophils # (Auto) 0.0, Basophils # (Auto) 0.0, Immature Granulocyte # (Auto) 0.1, Sodium Level 137, Potassium Level 3.1L, Chloride Level 110H, Carbon Dioxide Level 21, Anion Gap 6, Blood Urea Nitrogen 3L, Creatinine 0.61, Estimat Glomerular Filtration Rate 99, BUN/Creatinine Ratio 5, Glucose Level 108H, Calcium Level 7.4L, Corrected Calcium 8.4L, Total Bilirubin 0.5, Aspartate Amino Transf (AST/SGOT) 103H, Alanine Aminotransferase (ALT/SGPT) 131H, Alkaline Phosphatase 50, Total Protein 4.8L, Albumin 2.8L Assessment/Plan Assessment/Plan Assess & Plan/Chief Complaint Assessment: Severe and refractory abdominal pain-repeat CT scan shows mural thickening of both small and large intestine with enteritis Stool load on CT scan Recent UTI completed Augmentin MARTINEZ h/o breast cancer Lovenox for DVT PPx since it appears she will not need surgery Elevated LFT's but CT USG normal Plan: Monitor closely Pain meds Vanc PO empirically in case atypical C diff Diagnosis/Problems Diagnosis/Problems (1) Acute abdominal pain Clinical Quality Measures Admission Status Admission Dx Appreciate Dr Hardy Pain control Abd USG in am May need repeat CT? ANSON ACEVES DO Apr 09, 2023 06:46
[2023-04-09] MEDS: POTASSIUM CL 10MEQ/50ML IVPB 50 ML IV SCH ×2 (07:25→08:40)
[2023-04-09] MEDS: DOCUSATE SODIUM 100 MG CAPSULE PO SCH ×2 (08:40→21:12)
[2023-04-09] MEDS: SENNOSIDES 8.6 MG (SENOKOT) TAB PO SCH ×2 (08:40→21:12)
[2023-04-09] MEDS: LEVOTHYROXINE 75 MCG (LEVOTHROID) TABLET PO SCH (08:40)
[2023-04-09] MEDS ORDERED: diphenhydrAMINE INJ 50 MG/ML VIAL IVP NR (09:00)
[2023-04-09] MEDS ORDERED: methylPREDNISolone 125 MG (Solu-MEDROL) VIAL IVP NR (09:00)
--- NOTE | 2023-04-09 09:14 | Progress Note - Surgery ---
Subjective Date Seen by a Provider: Apr 09, 2023 Time Seen by a Provider: 09:07 Subjective/Events-last exam Most of yesterday was good. Last night worsening. Still with pain in lower abdomen pain and into the back. Pain feels like a kidney stone. No nausea or emesis. Still with bowel function. Objective Exam Vital Signs Date Time Temp Pulse Resp B/P (MAP) Pulse Ox O2 Delivery O2 Flow Rate FiO2 04/09/23 08:13 98 Room Air 0.00 04/09/23 08:13 36.8 86 18 135/63 (87) 97 Room Air 04/09/23 03:14 36.6 82 16 127/70 (89) 98 Room Air 04/09/23 02:56 36.9 97 98 21 04/08/23 23:44 36.9 97 16 129/74 (92) 98 Room Air 04/08/23 20:00 Room Air 04/08/23 19:20 37.2 95 16 116/70 (85) 96 Room Air 04/08/23 16:04 36.2 86 18 132/75 (94) 99 Room Air 04/08/23 11:52 36.8 83 18 121/66 (84) 98 Room Air I & O 04/09/23 07:00 Intake Total 2705 ml Balance 2705 ml Capillary Refill : General Appearance: WD/WN, Other (uncomfortable) HEENT: PERRL/EOMI, Moist Mucous Membranes Neck: Non Tender, Supple; No JVD Respiratory: Chest Non Tender, No Accessory Muscle Use, No Respiratory Distress Cardiovascular: Regular Rate, Rhythm, No JVD Gastrointestinal: distended (minimall lower abdomen), tenderness (lower abdomen ) Extremity: Non Tender, No Pedal Edema Neurologic/Psychiatric: Alert, Oriented x3, Normal Mood/Affect Skin: Normal Color, Warm/Dry Lymphatic: No Adenopathy Results Lab Laboratory Tests 04/09/23 05:37: White Blood Count 4.6, Red Blood Count 3.77L, Hemoglobin 10.9L, Hematocrit 33L, Mean Corpuscular Volume 86, Mean Corpuscular Hemoglobin 29, Mean Corpuscular Hemoglobin Concent 34, Red Cell Distribution Width 15.3H, Platelet Count 144, Mean Platelet Volume 9.5, Immature Granulocyte % (Auto) 1, Neutrophils (%) (Auto) 36L, Lymphocytes (%) (Auto) 52H, Monocytes (%) (Auto) 9, Eosinophils (%) (Auto) 1, Basophils (%) (Auto) 1, Neutrophils # (Auto) 1.7L, Lymphocytes # (Auto) 2.4, Monocytes # (Auto) 0.4, Eosinophils # (Auto) 0.0, Basophils # (Auto) 0.0, Immature Granulocyte # (Auto) 0.1, Sodium Level 137, Potassium Level 3.1L, Chloride Level 110H, Carbon Dioxide Level 21, Anion Gap 6, Blood Urea Nitrogen 3L, Creatinine 0.61, Estimat Glomerular Filtration Rate 99, BUN/Creatinine Ratio 5, Glucose Level 108H, Calcium Level 7.4L, Corrected Calcium 8.4L, Total Bilirubin 0.5, Aspartate Amino Transf (AST/SGOT) 103H, Alanine Aminotransferase (ALT/SGPT) 131H, Alkaline Phosphatase 50, Total Protein 4.8L, Albumin 2.8L Assessment/Plan Assessment/Plan Assessment/Plan lower abdominal pain nausea/vomiting constipation reviewed ct appears to have some colonic constipation otherwise normal from recent er visit white count normal last colonoscopy was 5 years ago would recommend repeating in near future small bowel follow through was normal clear liquids liver enzymes elevated u/s normal, has been taking recently increasing amount of Tylenol/ibuprofen which may be cause. iv fluid pain control stool culture done at Dr. Sanchez's Vancomycin oral will repeat ct c and s contrast today to look for cause of symptoms. will pre- medicate for allergy she understands and agrees with risks/benefits NATTY MONTERO DO Apr 09, 2023 09:14
[2023-04-09] MEDS ORDERED: CATHETER FLUSH 10 ML SYR IV PRN (12:15)
[2023-04-09] MEDS ORDERED: HOLD METFORMIN - RECEIVED CONTRAST 20 ML VIAL IV SCH (12:15)
[2023-04-09] MEDS ORDERED: IOHEXOL 350 MG/ML 100 ML (OMNIPAQUE 350) VIAL IV ONE (12:15)
[2023-04-09] MEDS ORDERED: NS 100 ML (IVPB) BAG IV ONE (12:15)
--- NOTE | 2023-04-09 12:49 | Diagnostic Imaging Report ---
PROCEDURE: CT abdomen and pelvis with contrast. TECHNIQUE: Multiple contiguous axial images were obtained through the abdomen and pelvis after administration of intravenous contrast. Auto Exposure Controls were utilized during the CT exam to meet ALARA standards for radiation dose reduction. All CT scans use one or more of the following dose optimizing techniques: automated exposure control, MA and/or KvP adjustment based on patient size and exam type or iterative reconstruction. INDICATION: Abdominal pain COMPARISON: Small bowel study from 04/07/[address] dated 04/05/2023. FINDINGS: Minimal scarring and/atelectasis within the right middle lobe. Visualized lung bases are otherwise clear. The liver is mildly enlarged. No suspicious focal hepatic mass. The spleen is unremarkable. The adrenal glands are unremarkable. The pancreas is unremarkable. The gallbladder is unremarkable. The kidneys are unremarkable. No aneurysmal dilatation of the abdominal aorta. Tiny fat-containing umbilical hernia. The appendix is unremarkable. The urinary bladder is unremarkable. The uterus and adnexal structures are unremarkable. Scattered regions of mural thickening identified involving both the large and small bowel. No bowel obstruction. No significant adenopathy or free air. Tiny amount of free fluid within the lower pelvis. Scattered osseous degenerative changes without acute osseous abnormality. IMPRESSION: Scattered regions of mural thickening involving the large and small bowel, favored to relate to underlying enterocolitis. No evidence of bowel obstruction or pneumatosis. Mild hepatomegaly. Tiny amount of free fluid within the lower pelvis. Additional findings as above. Dictated by: Dictated on workstation # [id number]
[2023-04-09] MEDS: ENOXAPARIN 40 MG/0.4 ML SYRINGE SC SCH (12:59)
[2023-04-10 03:10] VITALS: BP 110/63
[2023-04-10] MEDS: VANCOMYCIN 125 MG CAPSULE PO SCH ×4 (03:58→21:01)
[2023-04-10 05:42] LABS: BASOPHILS % (AUTO) 1 % (0-10); EOSINOPHILS % (AUTO) 0 % (0-10); HEMATOCRIT 33 % (35-52); HEMOGLOBIN 11.1 g/dL (11.5-16.0); LYMPHOCYTES # (AUTO) 1.9 10^3/uL (1.0-4.0); LYMPHOCYTES % (AUTO) 40 % (12-44); MEAN CORPUSCULAR HEMOGLOBIN 29 pg (25-34); MEAN CORPUSCULAR HGB CONC 34 g/dL (32-36); MEAN CORPUSCULAR VOLUME 86 fL (80-99); MEAN PLATELET VOLUME 9.5 fL (9.0-12.2); MONOCYTES # (AUTO) 0.5 10^3/uL (0.0-1.0); MONOCYTES % (AUTO) 11 % (0-12); NEUTROPHILS # (AUTO) 2.3 10^3/uL (1.8-7.8); NEUTROPHILS % (AUTO) 48 % (42-75); PLATELET COUNT 166 10^3/uL (130-400); WHITE BLOOD COUNT 4.8 10^3/uL (4.3-11.0)
[2023-04-10 05:53] LABS: ALBUMIN 2.9 GM/DL (3.2-4.5)
[2023-04-10 05:54] LABS: POTASSIUM 3.4 MMOL/L (3.6-5.0)
[2023-04-10 05:55] LABS: CALCIUM 7.7 MG/DL (8.5-10.1)
[2023-04-10 05:56] LABS: TOTAL PROTEIN 4.6 GM/DL (6.4-8.2)
[2023-04-10 05:58] LABS: BILIRUBIN,TOTAL 0.4 MG/DL (0.1-1.0)
[2023-04-10 06:00] LABS: CREATININE SERUM 0.6 MG/DL (0.60-1.30)
--- NOTE | 2023-04-10 06:29 | Progress Note ---
Subjective Date Seen by a Provider: Apr 10, 2023 Time Seen by a Provider: 09:00 Subjective/Events-last exam Getting better overall IVF continue Pain better Tolerating CLD Checked meds and labs Review of Systems General: Fatigue, Malaise Objective Exam Last Set of Vital Signs Vital Signs Date Time Temp Pulse Resp B/P (MAP) Pulse Ox O2 Delivery O2 Flow Rate FiO2 04/10/23 03:10 36.4 79 16 110/63 (79) 98 Room Air 0.00 0.00 04/09/23 02:56 21 Capillary Refill : I&O Intake and Output 04/10/23 00:00 Intake Total 3191 ml Balance 3191 ml Intake Oral 3055 ml IV Total 100 ml IV Contrast 36 ml # Voids 13 # Bowel Movements 2 General: Alert, Oriented X3, Cooperative, No Acute Distress Lungs: Clear to Auscultation, Normal Air Movement Heart: Regular Rate, Normal S1, Normal S2, No Murmurs Psych/Mental Status: Mental Status NL, Mood NL Results Lab Laboratory Tests 04/10/23 05:28: White Blood Count 4.8, Red Blood Count 3.85, Hemoglobin 11.1L, Hematocrit 33L, Mean Corpuscular Volume 86, Mean Corpuscular Hemoglobin 29, Mean Corpuscular Hemoglobin Concent 34, Red Cell Distribution Width 15.4H, Platelet Count 166, Mean Platelet Volume 9.5, Immature Granulocyte % (Auto) 1, Neutrophils (%) (Auto) 48, Lymphocytes (%) (Auto) 40, Monocytes (%) (Auto) 11, Eosinophils (%) (Auto) 0, Basophils (%) (Auto) 1, Neutrophils # (Auto) 2.3, Lymphocytes # (Auto) 1.9, Monocytes # (Auto) 0.5, Eosinophils # (Auto) 0.0, Basophils # (Auto) 0.0, Immature Granulocyte # (Auto) 0.0, Sodium Level 140, Potassium Level 3.4L, Chloride Level 113H, Carbon Dioxide Level 22, Anion Gap 5, Blood Urea Nitrogen 4L, Creatinine 0.60, Estimat Glomerular Filtration Rate 99, BUN/Creatinine Ratio 7, Glucose Level 106H, Calcium Level 7.7L, Corrected Calcium 8.6, Total Bilirubin 0.4, Aspartate Amino Transf (AST/SGOT) 71H, Alanine Aminotransferase (ALT/SGPT) 120H, Alkaline Phosphatase 52, Total Protein 4.6L, Albumin 2.9L Assessment/Plan Assessment/Plan Assess & Plan/Chief Complaint Assessment: Severe and refractory abdominal pain-repeat CT scan shows mural thickening of both small and large intestine with enteritis Stool load on CT scan Recent UTI completed Augmentin MARTINEZ h/o breast cancer Lovenox for DVT PPx since it appears she will not need surgery Elevated LFT's but CT USG normal-improved Plan: Monitor closely Pain meds Vanc PO empirically in case atypical C diff Diagnosis/Problems Diagnosis/Problems (1) Acute abdominal pain Clinical Quality Measures Admission Status Admission Dx Appreciate Dr Hardy Pain control Abd USG in am May need repeat CT? ANSON ACEVES DO Apr 10, 2023 06:29
[2023-04-10] MEDS ORDERED: MAGNESIUM 1 GM/100 ML IVPB 100 ML IV ONE (06:30)
[2023-04-10] MEDS: POTASSIUM CL 10MEQ/50ML IVPB 50 ML IV SCH ×4 (06:54→10:29)
[2023-04-10 07:41] VITALS: BP 119/56
[2023-04-10] MEDS: NS IV 1000 ML 1,000 ML IV SCH (07:49)
[2023-04-10] MEDS: LEVOTHYROXINE 75 MCG (LEVOTHROID) TABLET PO SCH (09:12)
[2023-04-10] MEDS: DOCUSATE SODIUM 100 MG CAPSULE PO SCH ×2 (09:18→19:46)
[2023-04-10] MEDS: SENNOSIDES 8.6 MG (SENOKOT) TAB PO SCH ×2 (09:18→19:47)
--- NOTE | 2023-04-10 09:18 | Progress Note - Surgery ---
Subjective Date Seen by a Provider: Apr 10, 2023 Time Seen by a Provider: 09:18 Subjective/Events-last exam Passing flatus/bm and tolerating clear liquids. Still with bloating and pain but overall feeling better. Denies n/v fever sweats chills shortness of breath or chest pain. Objective Exam Vital Signs Date Time Temp Pulse Resp B/P (MAP) Pulse Ox O2 Delivery O2 Flow Rate FiO2 04/10/23 07:41 36.4 87 17 119/56 (77) 98 Room Air 04/10/23 03:10 36.4 79 16 110/63 (79) 98 Room Air 0.00 0.00 04/09/23 23:38 36.6 86 16 138/76 (96) 98 Room Air 0.00 0.00 04/09/23 20:00 Room Air 04/09/23 19:25 37.0 87 16 118/73 (88) 97 04/09/23 16:27 36.2 86 16 116/74 (88) 97 Room Air 04/09/23 12:23 36.8 80 18 131/70 (90) 98 Room Air I & O 04/10/23 07:00 Intake Total 3091 ml Balance 3091 ml Capillary Refill : General Appearance: WD/WN, Other (uncomfortable) HEENT: PERRL/EOMI, Moist Mucous Membranes Neck: Non Tender, Supple; No JVD Respiratory: Chest Non Tender, No Accessory Muscle Use, No Respiratory Distress Cardiovascular: Regular Rate, Rhythm, No JVD Gastrointestinal: distended (minimal lower abdomen), tenderness (lower abdomen ) Extremity: Non Tender, No Pedal Edema Neurologic/Psychiatric: Alert, Oriented x3, Normal Mood/Affect Skin: Normal Color, Warm/Dry Lymphatic: No Adenopathy Results Lab Laboratory Tests 04/10/23 05:28: White Blood Count 4.8, Red Blood Count 3.85, Hemoglobin 11.1L, Hematocrit 33L, Mean Corpuscular Volume 86, Mean Corpuscular Hemoglobin 29, Mean Corpuscular Hemoglobin Concent 34, Red Cell Distribution Width 15.4H, Platelet Count 166, Mean Platelet Volume 9.5, Immature Granulocyte % (Auto) 1, Neutrophils (%) (Auto) 48, Lymphocytes (%) (Auto) 40, Monocytes (%) (Auto) 11, Eosinophils (%) (Auto) 0, Basophils (%) (Auto) 1, Neutrophils # (Auto) 2.3, Lymphocytes # (Auto) 1.9, Monocytes # (Auto) 0.5, Eosinophils # (Auto) 0.0, Basophils # (Auto) 0.0, Immature Granulocyte # (Auto) 0.0, Sodium Level 140, Potassium Level 3.4L, Chloride Level 113H, Carbon Dioxide Level 22, Anion Gap 5, Blood Urea Nitrogen 4L, Creatinine 0.60, Estimat Glomerular Filtration Rate 99, BUN/Creatinine Ratio 7, Glucose Level 106H, Calcium Level 7.7L, Corrected Calcium 8.6, Magnesium Level 2.2, Total Bilirubin 0.4, Aspartate Amino Transf (AST/SGOT) 71H, Alanine Aminotransferase (ALT/SGPT) 120H, Alkaline Phosphatase 52, Total Protein 4.6L, Albumin 2.9L Assessment/Plan Assessment/Plan Assessment/Plan lower abdominal pain nausea/vomiting constipation enterocolitis white count normal last colonoscopy was 5 years ago would recommend repeating in near future small bowel follow through was normal clear liquids liver enzymes elevated u/s normal, has been taking recently increasing amount of Tylenol/ibuprofen which may be cause. iv fluid pain control stool culture done at Dr. Sanchez's Vancomycin oral repeat ct consistent with enterocolitis felt possible allergy from contrast started on steroids NATTY MONTERO DO Apr 10, 2023 09:18
[2023-04-10] MEDS: diphenhydrAMINE 25 MG TABLET PO PRN (10:54)
[2023-04-10] MEDS: PANTOPRAZOLE 40 MG (PROTONIX) TAB PO SCH (10:54)
[2023-04-10 11:13] VITALS: BP 138/66
[2023-04-10] MEDS ORDERED: methylPREDNISolone 125 MG (Solu-MEDROL) VIAL IVP NR (11:30)
[2023-04-10] MEDS: ENOXAPARIN 40 MG/0.4 ML SYRINGE SC SCH (13:17)
[2023-04-10 15:57] VITALS: BP 131/57
[2023-04-10 23:18] VITALS: BP 120/70
[2023-04-11] MEDS ORDERED: FUROSEMIDE 40 MG/4 ML INJ (LASIX) ONE (04:19)
[2023-04-11] MEDS: VANCOMYCIN 125 MG CAPSULE PO SCH ×3 (04:20→15:45)
[2023-04-11 04:54] LABS: BASOPHILS % (AUTO) 1 % (0-10); EOSINOPHILS % (AUTO) 0 % (0-10); HEMATOCRIT 35 % (35-52); HEMOGLOBIN 11.6 g/dL (11.5-16.0); LYMPHOCYTES # (AUTO) 2.1 10^3/uL (1.0-4.0); LYMPHOCYTES % (AUTO) 41 % (12-44); MEAN CORPUSCULAR HEMOGLOBIN 29 pg (25-34); MEAN CORPUSCULAR HGB CONC 33 g/dL (32-36); MEAN CORPUSCULAR VOLUME 87 fL (80-99); MEAN PLATELET VOLUME 9.6 fL (9.0-12.2); MONOCYTES # (AUTO) 0.5 10^3/uL (0.0-1.0); MONOCYTES % (AUTO) 10 % (0-12); NEUTROPHILS # (AUTO) 2.4 10^3/uL (1.8-7.8); NEUTROPHILS % (AUTO) 47 % (42-75); PLATELET COUNT 175 10^3/uL (130-400); WHITE BLOOD COUNT 5.1 10^3/uL (4.3-11.0)
[2023-04-11 05:11] LABS: ALBUMIN 3.1 GM/DL (3.2-4.5); POTASSIUM 3.6 MMOL/L (3.6-5.0)
[2023-04-11 05:12] LABS: CALCIUM 7.8 MG/DL (8.5-10.1)
[2023-04-11 05:13] LABS: TOTAL PROTEIN 5.5 GM/DL (6.4-8.2)
[2023-04-11 05:15] LABS: BILIRUBIN,TOTAL 0.4 MG/DL (0.1-1.0)
[2023-04-11 05:17] LABS: CREATININE SERUM 0.6 MG/DL (0.60-1.30)
[2023-04-11] MEDS ORDERED: FUROSEMIDE 40 MG/4 ML INJ (LASIX) IVP ONE (07:00)
[2023-04-11 07:41] VITALS: BP 127/73
--- NOTE | 2023-04-11 08:58 | History & Physical-Surgical ---
History of Present Illness History of Present Illness Patient Consulted On(nadia/time) 04/11/23 08:58 Date Seen by Provider: Apr 11, 2023 Time Seen by Provider: 08:30 Reason for Visit: Follow- Allergies and Home Medications Allergies Coded Allergies: Iodinated Contrast Media (Verified Allergy, Intermediate, SWELLLING, 02/09/12) Sulfa (Sulfonamide Antibiotics) (Unverified Allergy, Unknown, UNKNOWN, 06/04/07) codeine (Unverified Allergy, Unknown, UNKNOWN, 06/04/07) Patient Home Medication List Calcium Carbonate/Vitamin D3 (Calcium 600 + Vit D Caplet) 600 Mg Calcium-10 Mcg (400 Unit) Tablet, 1 EACH PO BID, (Reported) Entered as Reported by: KORTNEY MTZ on 10/31/17 0931 Last Action: Held Cholecalciferol (Vitamin D3) (Vitamin D3) 50 Mcg (2000 Unit) Tablet, 50 MCG PO 1230, (Reported) Entered as Reported by: NICHOLE GUERRERO on 04/27/22899 Last Action: Held Ezetimibe (Ezetimibe) 10 Mg Tablet, 10 MG PO 1200, (Reported) Entered as Reported by: NICHOLE GUERRERO on 04/27/22899 Last Action: Held Levothyroxine Sodium (Levothyroxine Sodium) 75 Mcg Tablet, 75 MCG PO DAILY, (Reported) Entered as Reported by: IAM CASTORENA on 04/07/23 134 Last Action: Continued Multivitamin (Multivitamin) 1 Each Tablet, 1 EACH PO HS, (Reported) Entered as Reported by: NICHOLE GUERRERO on 04/27/22899 Last Action: Held Rosuvastatin Calcium (Rosuvastatin Calcium) 5 Mg Tablet, 5 MG PO HS, (Reported) Entered as Reported by: IAM CASTORENA on 04/07/23 134 Last Action: Held Discontinued Medications Denosumab (Prolia) 60 Mg/Ml Disp.syrin, 60 MG SQ [id number], (Reported) Discontinued Reason: No Longer Taking Entered as Reported by: NICHOLE GUERRERO on 04/27/22899 Last Action: Discontinued Hyoscyamine Sulfate (Levsin-Sl) 0.125 Mg Tab.subl, 0.125 MG SL Q4H PRN for ABDOMINAL PAIN Discontinued Reason: No Longer Taking Prescribed by: SALEEM MCLEAN on 04/05/23421 Last Action: Discontinued Ibuprofen (Ibuprofen) 200 Mg Tablet, 600 MG PO Q6H PRN for PAIN-MILD (1-4), (Reported) Discontinued Reason: No Longer Taking Entered as Reported by: NICHOLE GUERRERO on 04/27/22907 Last Action: Discontinued Levothyroxine Sodium (Levothyroxine Sodium) 50 Mcg Tablet, 50 MCG PO DAILY, (Reported) Discontinued Reason: No Longer Taking Entered as Reported by: KORTNEY MTZ on 10/31/17930 Last Action: Discontinued Metronidazole (Metronidazole) 500 Mg Tablet, (Reported) Discontinued Reason: No Longer Taking Entered as Reported by: NURY WHITEHEAD on 04/05/23117 Last Action: Discontinued Nitrofurantoin Macrocrystal (Nitrofurantoin) 100 Mg Capsule, 100 MG PO DAILY PRN for UTI, (Reported) Discontinued Reason: No Longer Taking Entered as Reported by: NICHOLE GUERRERO on 04/27/22899 Last Action: Discontinued Ondansetron (Ondansetron Odt) 4 Mg Tab.rapdis, 4 MG PO Q6H PRN for NAUSEA/VOMITING Discontinued Reason: No Longer Taking Prescribed by: SALEEM MCLEAN on 04/05/23421 Last Action: Discontinued Rizatriptan Benzoate (Rizatriptan) 10 Mg Tablet, 10 MG PO DAILY PRN for MIGRAINE, (Reported) Discontinued Reason: No Longer Taking Entered as Reported by: NICHOLE GUERRERO on 04/27/22899 Last Action: Discontinued Past Tcmhnmn-Pcezut-Cuevua Hx Patient Social History Smoking Status: Never a Smoker Recent Hopitalizations: No Alcohol Use?: No Immunizations Up To Date Tetanus Booster (TDap): Unknown Date of Influenza Vaccine: Jul 12, 2017 Seasonal Allergies Seasonal Allergies: Yes Surgeries History of Surgeries: Yes (lumpectomy) Surgeries: Orthopedic Respiratory Respiratory Disorders: Sleep Apnea Cardiovascular History of Cardiac Disorders: No Cardiac Disorders: High Cholesterol Neurological History of Neurological Disord: No Neurological Disorders: Headaches /Migraines Reproductive System Hx Reproductive Disorders: No Sexually Transmitted Disease: No HIV/AIDS: No Female Reproductive Disorders: Denies Musculoskeletal Musculoskeletal Disorders: Osteoporosis Endocrine Endocrine Disorders: Hypothyroidsim Cancer Cancer: Breast Reviewed Nursing Assessment Reviewed/Agree w Nursing PMH: Yes Family Medical History Significant Family History: No Pertinent Family Hx, Other Conditions/Hx (Family does have history of diverticulitis, denies fam hx of Chrons, UC, or colon cancer) Physical Exam-General Problems Physical Exam Vital Signs Vital Signs - First Documented 04/06/23 04/09/23 04/09/23 14:00 02:56 08:00 Temp 36.0 Pulse 88 Resp 18 B/P (MAP) 127/77 (94) Pulse Ox 100 O2 Delivery Room Air O2 Flow Rate 0.00 FiO2 21 Capillary Refill : Data Review Labs Laboratory Tests 04/11/23 04:42: White Blood Count 5.1, Red Blood Count 3.98, Hemoglobin 11.6, Hematocrit 35, Mean Corpuscular Volume 87, Mean Corpuscular Hemoglobin 29, Mean Corpuscular Hemoglobin Concent 33, Red Cell Distribution Width 15.9H, Platelet Count 175, Mean Platelet Volume 9.6, Immature Granulocyte % (Auto) 1, Neutrophils (%) (Auto) 47, Lymphocytes (%) (Auto) 41, Monocytes (%) (Auto) 10, Eosinophils (%) (Auto) 0, Basophils (%) (Auto) 1, Neutrophils # (Auto) 2.4, Lymphocytes # (Auto) 2.1, Monocytes # (Auto) 0.5, Eosinophils # (Auto) 0.0, Basophils # (Auto) 0.0, Immature Granulocyte # (Auto) 0.1, Sodium Level 141, Potassium Level 3.6, Chloride Level 111H, Carbon Dioxide Level 21, Anion Gap 9, Blood Urea Nitrogen 4L, Creatinine 0.60, Estimat Glomerular Filtration Rate 99, BUN/Creatinine Ratio 7, Glucose Level 102, Calcium Level 7.8L, Corrected Calcium 8.5, Total Bilirubin 0.4, Aspartate Amino Transf (AST/SGOT) 55H, Alanine Aminotransferase (ALT/SGPT) 111H, Alkaline Phosphatase 49, Total Protein 5.5L, Albumin 3.1L Assessment/Plan Assessment/Plan Assessment/Plan Assessment: Severe and refractory abdominal pain-repeat CT scan shows mural thickening of both small and large intestine with enteritis Stool load on CT scan Recent UTI completed Augmentin MARTINEZ h/o breast cancer Lovenox for DVT PPx since it appears she will not need surgery Elevated LFT's but CT USG normal-improved Plan: Continue to monitor patient Vanc PO continued empirically in case atypical C diff Low Residue diet to begin today Start Prednisone 10 mg daily- 1 times a day for 5 days MIKAL LOUIE Apr 11, 2023 08:58
[2023-04-11] MEDS: LEVOTHYROXINE 75 MCG (LEVOTHROID) TABLET PO SCH (09:06)
--- NOTE | 2023-04-11 09:06 | Progress Note ---
MIKAL LOUIE 04/11/23 0906: Subjective Date Seen by a Provider: Apr 11, 2023 Subjective/Events-last exam 67 year old female who has a primary complaint of abdominal pain. CT scan shows mural thickening of both small and large intestine. Patient currently has lower abdomen pain bilaterally, which does not radiate, and is graded as a 3/10. Patient describes pain as dull and constant, feels like there is more bloating in her abdomen. The pain is constant throughout the day and has led to a sore feeling in her abdomen. She has had sudden increase in edema since yesterday in both lower legs and upper extremities. Patients pain has recently been alleviated by corticosteriods that were taken for the CT contrast. Nothing aggravates the pain and the pain does not radiate. Patient has been going to the bathroom several times since last seen and describes the consistency as small "macaroni" shaped. Patient also says she had a slight delayed reaction to the IV contrast yesterday which caused facial flushing and discomfort. Review of Systems General: No Chills, No Night Sweats, No Fatigue, No Malaise, No Appetite, No Other HEENT: No Head Aches, No Visual Changes, No Eye Pain, No Ear Pain, No Dysphasia, No Sinus Congestion, No Post Nasal Drip, No Sore Throat, No Other Pulmonary: No Dyspnea, No Cough, No Pleuritic Chest Pain, No Other Cardiovascular: Edema; No: Chest Pain, Palpitations, Orthopnea, Paroxysmal Noc. Dyspnea, Lt Headedness, Other Gastrointestinal: Abdominal Pain Genitourinary: No Dysuria, No Frequency, No Incontinence, No Hematuria, No Retention, No Other Musculoskeletal: No: other, neck pain, shoulder pain, arm pain, back pain, hand pain, leg pain, foot pain Neurological: No: Weakness, Numbness, Incoordination, Change in speech, Confusion, Seizures, Other Focused Exam Sepsis Stage: Ruled Out Respiratory: No Chest Non Tender, No Lungs Clear, No Normal Breath Sounds, No No Accessory Muscle Use, No No Respiratory Distress, No Accessory Muscle Use, No Crackles, No Decreased Breath Sounds, No Expiration, No Inspiration, No Pleural Rub, No Rales, No Respiratory Distress, No Rhonci, No Stridor, No Wheezing, No Other Cardiovascular: Normal Peripheral Pulses Capillary Refill: Less Than 3 Seconds Peripheral Pulses: 2+ Radial Pulses (R), 2+ Radial Pulses (L) Skin: normal color Objective Exam Last Set of Vital Signs Vital Signs Date Time Temp Pulse Resp B/P (MAP) Pulse Ox O2 Delivery O2 Flow Rate FiO2 04/11/23 07:50 98 Room Air 04/11/23 07:41 36.7 89 20 127/73 (91) 04/10/23 23:18 0.00 0.00 04/09/23 02:56 21 Capillary Refill : I&O Intake and Output 04/11/23 00:00 Intake Total 2770 ml Balance 2770 ml Intake Oral 2770 ml # Voids 9 # Bowel Movements 5 Results Lab Laboratory Tests 04/11/23 04:42: White Blood Count 5.1, Red Blood Count 3.98, Hemoglobin 11.6, Hematocrit 35, Mean Corpuscular Volume 87, Mean Corpuscular Hemoglobin 29, Mean Corpuscular Hemoglobin Concent 33, Red Cell Distribution Width 15.9H, Platelet Count 175, Mean Platelet Volume 9.6, Immature Granulocyte % (Auto) 1, Neutrophils (%) (Auto) 47, Lymphocytes (%) (Auto) 41, Monocytes (%) (Auto) 10, Eosinophils (%) (Auto) 0, Basophils (%) (Auto) 1, Neutrophils # (Auto) 2.4, Lymphocytes # (Auto) 2.1, Monocytes # (Auto) 0.5, Eosinophils # (Auto) 0.0, Basophils # (Auto) 0.0, Immature Granulocyte # (Auto) 0.1, Sodium Level 141, Potassium Level 3.6, Chloride Level 111H, Carbon Dioxide Level 21, Anion Gap 9, Blood Urea Nitrogen 4L, Creatinine 0.60, Estimat Glomerular Filtration Rate 99, BUN/Creatinine Ratio 7, Glucose Level 102, Calcium Level 7.8L, Corrected Calcium 8.5, Total Bilirubin 0.4, Aspartate Amino Transf (AST/SGOT) 55H, Alanine Aminotransferase (ALT/SGPT) 111H, Alkaline Phosphatase 49, Total Protein 5.5L, Albumin 3.1L Assessment/Plan Assessment/Plan Assess & Plan/Chief Complaint Severe and refractory abdominal pain- CT scan shows mural thickening of both small and large intestine with enteritis Stool load on CT Recent UTI completed Augmentin MARTINEZ h/o Breast cancer Levenox for DVT PPx since it appears she will not need surgery Elevated LFTs that have been steadily improving over the last 3 days- CT USG normal Furosemide for edema Bilateral lower extremity edema Bilateral upper extremity edema NATTY HARDY DO 04/12/23 1132: Subjective Subjective/Events-last exam Feeling better. Less bloated. Tolerating diet (clears). More swelling in lower legs was given Lasix and helping. No N/v. Pain minimal. Denies n/v fever sweats chills shortness of breath or chest pain. Objective Exam General: Alert, Oriented X3 Neck: Supple, No JVD Heart: Regular Rate, Other (no jvd) Abdomen: Soft, Other (minimal distention, better than yesterday) Extremities: Other (minimal edema. non tender, good range of motion.) Skin: No Rashes, No Breakdown Neuro: Normal Speech, Sensation Intact Psych/Mental Status: Mental Status NL, Mood NL Assessment/Plan Assessment/Plan Assess & Plan/Chief Complaint lower abdominal pain nausea/vomiting constipation enterocolitis reviewed ct appears to have some colonic constipation otherwise normal from recent er visit white count normal last colonoscopy was 5 years ago would recommend repeating in near future small bowel follow through was normal clear liquids- advance liver enzymes improving u/s normal, has been taking recently increasing amount of Tylenol/ibuprofen which may be cause. pain control stool culture done at Dr. Sanchez's Vancomycin oral Prednisone 10 mg oral daily for 5 more days. Supervisory-Addendum Brief Verification & Attestation Participated in pt care: history, MDM, physical Personally performed: exam, history, MDM, supervision of care Care discussed with: Medical Student Procedures: n/a Results interpretation: Verified all documentation Verification and Attestation of Medical Student E/M Service A medical student performed and documented this service in my presence. I reviewed and verified all information documented by the medical student and made modifications to such information, when appropriate. I personally performed the physical exam and medical decision making. Natty Hardy, Apr 11, 2023,11:32 MIKAL LOUIE Apr 11, 2023 09:06 NATTY HARDY DO Apr 12, 2023 11:32
[2023-04-11] MEDS: SENNOSIDES 8.6 MG (SENOKOT) TAB PO SCH (09:07)
[2023-04-11] MEDS: PANTOPRAZOLE 40 MG (PROTONIX) TAB PO SCH (09:07)
[2023-04-11] MEDS: DOCUSATE SODIUM 100 MG CAPSULE PO SCH (09:07)
[2023-04-11] MEDS: diphenhydrAMINE 25 MG TABLET PO PRN (09:12)
--- NOTE | 2023-04-11 09:24 | Progress Note ---
Subjective Date Seen by a Provider: Apr 11, 2023 Objective Exam Last Set of Vital Signs Vital Signs Date Time Temp Pulse Resp B/P (MAP) Pulse Ox O2 Delivery O2 Flow Rate FiO2 04/11/23 07:50 98 Room Air 04/11/23 07:41 36.7 89 20 127/73 (91) 04/10/23 23:18 0.00 0.00 04/09/23 02:56 21 Capillary Refill : Less Than 3 Seconds I&O Intake and Output 04/11/23 00:00 Intake Total 2770 ml Balance 2770 ml Intake Oral 2770 ml # Voids 9 # Bowel Movements 5 Results Lab Laboratory Tests 04/11/23 04:42: White Blood Count 5.1, Red Blood Count 3.98, Hemoglobin 11.6, Hematocrit 35, Mean Corpuscular Volume 87, Mean Corpuscular Hemoglobin 29, Mean Corpuscular Hemoglobin Concent 33, Red Cell Distribution Width 15.9H, Platelet Count 175, Mean Platelet Volume 9.6, Immature Granulocyte % (Auto) 1, Neutrophils (%) (Auto) 47, Lymphocytes (%) (Auto) 41, Monocytes (%) (Auto) 10, Eosinophils (%) (Auto) 0, Basophils (%) (Auto) 1, Neutrophils # (Auto) 2.4, Lymphocytes # (Auto) 2.1, Monocytes # (Auto) 0.5, Eosinophils # (Auto) 0.0, Basophils # (Auto) 0.0, Immature Granulocyte # (Auto) 0.1, Sodium Level 141, Potassium Level 3.6, Chloride Level 111H, Carbon Dioxide Level 21, Anion Gap 9, Blood Urea Nitrogen 4L, Creatinine 0.60, Estimat Glomerular Filtration Rate 99, BUN/Creatinine Ratio 7, Glucose Level 102, Calcium Level 7.8L, Corrected Calcium 8.5, Total Bilirubin 0.4, Aspartate Amino Transf (AST/SGOT) 55H, Alanine Aminotransferase (ALT/SGPT) 111H, Alkaline Phosphatase 49, Total Protein 5.5L, Albumin 3.1L Assessment/Plan Assessment/Plan Assess & Plan/Chief Complaint Assessment: Severe and refractory abdominal pain-repeat CT scan shows mural thickening of both small and large intestine with enteritis Stool load on CT scan Recent UTI completed Augmentin MARTINEZ h/o breast cancer Lovenox for DVT PPx since it appears she will not need surgery Elevated LFT's but CT USG normal-improved Plan: Monitor closely Pain meds Vanc PO empirically in case atypical C diff Diagnosis/Problems Diagnosis/Problems (1) Acute abdominal pain Clinical Quality Measures Admission Status Admission Dx Appreciate Dr Hardy Pain control Abd USG in am May need repeat CT? ANSON ACEVES DO Apr 11, 2023 09:24
[2023-04-11] MEDS ORDERED: predniSONE 10 MG TAB PO SCH (10:00)
[2023-04-11] MEDS: ENOXAPARIN 40 MG/0.4 ML SYRINGE SC SCH (13:34)
[2023-04-11 15:32] VITALS: BP 136/69
[2023-04-11] MEDS ORDERED: OXC5T PO (15:38)
[2023-04-11] MEDS ORDERED: PRD10T PO (15:38)
[2023-04-11] MEDS ORDERED: VANC125C5 PO (15:38)
[2023-04-11] MEDS ORDERED: PANT40TA52 PO (15:38)
--- NOTE | 2023-04-11 15:39 | Discharge Summary ---
Diagnosis/Chief Complaint Date of Admission Apr 06, 2023 at 13:54 Date of Discharge Discharge Date: Apr 11, 2023 Discharge Diagnosis Assessment: Severe and refractory abdominal pain-repeat CT scan shows mural thickening of both small and large intestine with enteritis Stool load on CT scan Recent UTI completed Augmentin AMRTINEZ h/o breast cancer Lovenox for DVT PPx since it appears she will not need surgery Elevated LFT's but CT USG normal-improved Discharge Summary Discharge Physical Examination Allergies: Coded Allergies: Iodinated Contrast Media (Verified Allergy, Intermediate, SWELLLING, 02/09/12) Sulfa (Sulfonamide Antibiotics) (Unverified Allergy, Unknown, UNKNOWN, 06/04/07) codeine (Unverified Allergy, Unknown, UNKNOWN, 06/04/07) Vitals & I&Os Vital Signs Date Time Temp Pulse Resp B/P (MAP) Pulse Ox O2 Delivery O2 Flow Rate FiO2 04/11/23 16:56 36.6 93 20 136/69 98 Room Air 0.00 04/09/23 02:56 21 General Appearance: Alert, Oriented X3, Cooperative Respiratory: Clear to Auscultation Cardiovascular: Regular Rate Psych/Mental Status: Mental Status NL Hospital Course Was the Problem List Reviewed?: Yes Hospital course: Patient had an uneventful hospital course although lengthy she was admitted for of acute abdominal pain directly from Dr. Sanchez's office. Patient had previously gone to the ER [address] scan was unrevealing and sent home on dicyclomine. Ultrasound obtained due to elevated liver enzymes revealing no significant abnormality. Labs remained stable vitals remained stable patient was given IV fluid and ultimately she underwent repeat CT scan that showed enteritis with mural thickening of small bowel and large intestine consistent with her clinical symptoms. Potassium was replaced supportive care was maintained pain control was obtained and she was stable for discharge after diet was advanced and she was tolerating that well. Labs (last 24 hrs) Laboratory Tests 04/06/23 14:18: White Blood Count 5.9, Red Blood Count 4.58, Hemoglobin 13.3, Hematocrit 39, Mean Corpuscular Volume 85, Mean Corpuscular Hemoglobin 29, Mean Corpuscular Hemoglobin Concent 34, Red Cell Distribution Width 14.7H, Platelet Count 166, Mean Platelet Volume 10.0, Immature Granulocyte % (Auto) 2, Neutrophils (%) (Auto) 54, Lymphocytes (%) (Auto) 39, Monocytes (%) (Auto) 5, Eosinophils (%) (A uto) 0, Basophils (%) (Auto) 1, Neutrophils # (Auto) 3.1, Lymphocytes # (Auto) 2.3, Monocytes # (Auto) 0.3, Eosinophils # (Auto) 0.0, Basophils # (Auto) 0.0, Immature Granulocyte # (Auto) 0.1, Sodium Level 136, Potassium Level 3.8, Chloride Level 104, Carbon Dioxide Level 23, Anion Gap 9, Blood Urea Nitrogen 5L , Creatinine 0.76, Estimat Glomerular Filtration Rate 86, BUN/Creatinine Ratio 7, Glucose Level 111H, Calcium Level 8.9, Corrected Calcium 9.2, Total Bilirubin 0.7, Aspartate Amino Transf (AST/SGOT) 121H, Alanine Aminotransferase (ALT/SGPT) 116H, Alkaline Phosphatase 69, Lactate Dehydrogenase 382H, Total Protein 6.2L, Albumin 3.6, Amylase Level 66, Lipase 23 04/06/23 14:30: Urine Color YELLOW, Urine Clarity CLEAR, Urine pH 7.5, Urine Specific [place] 1.010L, Urine Protein NEGATIVE, Urine Glucose (UA) NEGATIVE, Urine Ketones TRA CEH, Urine Nitrite NEGATIVE, Urine Bilirubin NEGATIVE, Urine Urobilinogen 0.2, Urine Leukocyte Esterase NEGATIVE, Urine RBC (Auto) NEGATIVE, Urine RBC NONE, Urine WBC NONE, Urine Crystals NONE, Urine Bacteria NEGATIVE, Urine Casts NONE, Urine Mucus NEGATIVE, Urine Culture Indicated NO 04/07/23 05:20: White Blood Count 5.5, Red Blood Count 4.24, Hemoglobin 12.2, Hematocrit 37, Mean Corpuscular Volume 86, Mean Corpuscular Hemoglobin 29, Mean Corpuscular Hemoglobin Concent 33, Red Cell Distribution Width 14.9H, Platelet Count 144, Mean Platelet Volume 10.2, Immature Granulocyte % (Auto) 1, Neutrophils (%) (Auto) 43, Lymphocytes (%) (Auto) 47H, Monocytes (%) (Auto) 7, Eosinophils (%) (Auto) 1, Basophils (%) (Auto) 1, Neutrophils # (Auto) 2.3, Lymphocytes # (Auto) 2.6, Monocytes # (Auto) 0.4, Eosinophils # (Auto) 0.0, Basophils # (Auto) 0.1, Immature Granulocyte # (Auto) 0.1, Sodium Level 135, Potassium Level 3.6, Chloride Level 108H, Carbon Dioxide Level 21, Anion Gap 6, Blood Urea Nitrogen 5L, Creatinine 0.69, Estimat Glomerular Filtration Rate 96, BUN/Creatinine Ratio 7, Glucose Level 103, Calcium Level 7.9L, Corrected Calcium 8.7, Total Bilirubin 0.5, Aspartate Amino Transf (AST/SGOT) 140H, Alanine Aminotransferase (ALT/SGPT) 124H, Alkaline Phosphatase 59, Total Protein 5.1L, Albumin 3.0L, Erythrocyte Sedimentation Rate 8, Prothrombin Time 15.0H, INR Comment 1.2, C-Reactive Protein High Sensitivity 0.75H 04/07/23 06:24: Gamma Glutamyl Transpeptidase 76H, Hepatitis A IgM Antibody Non-Reactive, Hepatitis B Surface Antigen Non-Reactive, Hepatitis B Core IgM Antibody Non- Reactive, Hepatitis C Antibody Non-Reactive 04/08/23 05:25: White Blood Count 5.8, Red Blood Count 4.11, Hemoglobin 11.9, Hematocrit 35, Mean Corpuscular Volume 86, Mean Corpuscular Hemoglobin 29, Mean Corpuscular Hemoglobin Concent 34, Red Cell Distribution Width 15.0H, Platelet Count 160, Mean Platelet Volume 9.4, Immature Granulocyte % (Auto) 1, Neutrophils (%) (Auto) 44, Lymphocytes (%) (Auto) 45H, Monocytes (%) (Auto) 8, Eosinophils (%) (Auto) 0, Basophils (%) (Auto) 1, Neutrophils # (Auto) 2.6, Lymphocytes # (Auto) 2.6, Monocytes # (Auto) 0.5, Eosinophils # (Auto) 0.0, Basophils # (Auto) 0.0, Immature Granulocyte # (Auto) 0.1, Sodium Level 135, Potassium Level 3.5L, Chloride Level 108H, Carbon Dioxide Level 20L, Anion Gap 7, Blood Urea Nitrogen 4L, Creatinine 0.66, Estimat Glomerular Filtration Rate 97, BUN/Creatinine Ratio 6, Glucose Level 109H, Calcium Level 7.6L, Corrected Calcium 8.3L, Total Bilirubin 0.6, Aspartate Amino Transf (AST/SGOT) 148H, Alanine Aminotransferase (ALT/SGPT) 156H, Alkaline Phosphatase 59, Total Protein 5.3L, Albumin 3.1L 04/09/23 05:37: White Blood Count 4.6, Red Blood Count 3.77L, Hemoglobin 10.9L, Hematocrit 33L, Mean Corpuscular Volume 86, Mean Corpuscular Hemoglobin 29, Mean Corpuscular H emoglobin Concent 34, Red Cell Distribution Width 15.3H, Platelet Count 144, Mean Platelet Volume 9.5, Immature Granulocyte % (Auto) 1, Neutrophils (%) (Auto) 36L, Lymphocytes (%) (Auto) 52H, Monocytes (%) (Auto) 9, Eosinophils (%) (Auto) 1, Basophils (%) (Auto) 1, Neutrophils # (Auto) 1.7L, Lymphocytes # (Auto) 2.4, Monocytes # (Auto) 0.4, Eosinophils # (Auto) 0.0, Basophils # (Auto) 0.0, Immature Granulocyte # (Auto) 0.1, Sodium Level 137, Potassium Level 3.1L, Chloride Level 110H, Carbon Dioxide Level 21, Anion Gap 6, Blood Urea Nitrogen 3L, Creatinine 0.61, Estimat Glomerular Filtration Rate 99, BUN/Creatinine Ratio 5, Glucose Level 108H, Calcium Level 7.4L, Corrected Calcium 8.4L, Total Bilirubin 0.5, Aspartate Amino Transf (AST/SGOT) 103H, Alanine Aminotransferase (ALT/SGPT) 131H, Alkaline Phosphatase 50, Total Protein 4.8L, Albumin 2.8L 04/10/23 05:28: White Blood Count 4.8, Red Blood Count 3.85, Hemoglobin 11.1L, Hematocrit 33L, Mean Corpuscular Volume 86, Mean Corpuscular Hemoglobin 29, Mean Corpuscular Hemoglobin Concent 34, Red Cell Distribution Width 15.4H, Platelet Count 166, Mean Platelet Volume 9.5, Immature Granulocyte % (Auto) 1, Neutrophils (%) (Auto) 48, Lymphocytes (%) (Auto) 40, Monocytes (%) (Auto) 11, Eosinophils (%) (Auto) 0, Basophils (%) (Auto) 1, Neutrophils # (Auto) 2.3, Lymphocytes # (Auto) 1.9, Monocytes # (Auto) 0.5, Eosinophils # (Auto) 0.0, Basophils # (Auto) 0.0, Immature Granulocyte # (Auto) 0.0, Sodium Level 140, Potassium Level 3.4L, Chloride Level 113H, Carbon Dioxide Level 22, Anion Gap 5, Blood Urea Nitrogen 4L, Creatinine 0.60, Estimat Glomerular Filtration Rate 99, BUN/Creatinine Ratio 7, Glucose Level 106H, Calcium Level 7.7L, Corrected Calcium 8.6, Total Bilirubin 0.4, Aspartate Amino Transf (AST/SGOT) 71H, Alanine Aminotransferase (ALT/SGPT) 120H, Alkaline Phosphatase 52, Total Protein 4.6L, Albumin 2.9L, Magn esium Level 2.2 04/11/23 04:42: White Blood Count 5.1, Red Blood Count 3.98, Hemoglobin 11.6, Hematocrit 35, Mean Corpuscular Volume 87, Mean Corpuscular Hemoglobin 29, Mean Corpuscular Hemoglobin Concent 33, Red Cell Distribution Width 15.9H, Platelet Count 175, Mean Platelet Volume 9.6, Immature Granulocyte % (Auto) 1, Neutrophils (%) (Aut o) 47, Lymphocytes (%) (Auto) 41, Monocytes (%) (Auto) 10, Eosinophils (%) (Auto) 0, Basophils (%) (Auto) 1, Neutrophils # (Auto) 2.4, Lymphocytes # (Auto) 2.1, Monocytes # (Auto) 0.5, Eosinophils # (Auto) 0.0, Basophils # (Auto) 0.0, Immature Granulocyte # (Auto) 0.1, Sodium Level 141, Potassium Level 3.6, Chloride Level 111H, Carbon Dioxide Level 21, Anion Gap 9, Blood Urea Nitrogen 4L, Creatinine 0.60, Estimat Glomerular Filtration Rate 99, BUN/Creatinine Ratio 7, Glucose Level 102, Calcium Level 7.8L, Corrected Calcium 8.5, Total Bilirubin 0.4, Aspartate Amino Transf (AST/SGOT) 55H, Alanine Aminotransferase (ALT/SGPT) 111H, Alkaline Phosphatase 49, Total Protein 5.5L, Albumin 3.1L Pending Labs Laboratory Tests 04/06/23 14:18: White Blood Count 5.9, Red Blood Count 4.58, Hemoglobin 13.3, Hematocrit 39, Mean Corpuscular Volume 85, Mean Corpuscular Hemoglobin 29, Mean Corpuscular Hemoglobin Concent 34, Red Cell Distribution Width 14.7, Platelet Count 166, Mean Platelet Volume 10.0, Immature Granulocyte % (Auto) 2, Neutrophils (%) (Auto) 54, Lymphocytes (%) (Auto) 39, Monocytes (%) (Auto) 5, Eosinophils (%) (Auto) 0, Basophils (%) (Auto) 1, Neutrophils # (Auto) 3.1, Lymphocytes # (Auto) 2.3, Monocytes # (Auto) 0.3, Eosinophils # (Auto) 0.0, Basophils # (Auto) 0.0, Immature Granulocyte # (Auto) 0.1, Sodium Level 136, Potassium Level 3.8, Chloride Level 104, Carbon Dioxide Level 23, Anion Gap 9, Blood Urea Nitrogen 5, Creatinine 0.76, Estimat Glomerular Filtration Rate 86, BUN/Creatinine Ratio 7, Glucose Level 111, Calcium Level 8.9, Corrected Calcium 9.2, Total Bilirubin 0.7, Aspartate Amino Transf (AST/SGOT) 121, Alanine Aminotransferase (ALT/SGPT) 116, Alkaline Phosphatase 69, Lactate Dehydrogenase 382, Total Protein 6.2, Albumin 3.6, Amylase Level 66, Lipase 23 04/06/23 14:30: Urine Color YELLOW, Urine Clarity CLEAR, Urine pH 7.5, Urine Specific [place] 1.010, Urine Protein NEGATIVE, Urine Glucose (UA) NEGATIVE, Urine Ketones TRACE, Urine Nitrite NEGATIVE, Urine Bilirubin NEGATIVE, Urine Urobilinogen 0.2, Urine Leukocyte Esterase NEGATIVE, Urine RBC (Auto) NEGATIVE, Urine RBC NONE, Urine WBC NONE, Urine Crystals NONE, Urine Bacteria NEGATIVE, Urine Casts NONE, Urine Mucus NEGATIVE, Urine Culture Indicated NO 04/07/23 05:20: White Blood Count 5.5, Red Blood Count 4.24, Hemoglobin 12.2, Hematocrit 37, Mean Corpuscular Volume 86, Mean Corpuscular Hemoglobin 29, Mean Corpuscular Hemoglobin Concent 33, Red Cell Distribution Width 14.9, Platelet Count 144, Mean Platelet Volume 10.2, Immature Granulocyte % (Auto) 1, Neutrophils (%) (Auto) 43, Lymphocytes (%) (Auto) 47, Monocytes (%) (Auto) 7, Eosinophils (%) (Auto) 1, Basophils (%) (Auto) 1, Neutrophils # (Auto) 2.3, Lymphocytes # (Auto) 2.6, Monocytes # (Auto) 0.4, Eosinophils # (Auto) 0.0, Basophils # (Auto) 0.1, Immature Granulocyte # (Auto) 0.1, Sodium Level 135, Potassium Level 3.6, Chloride Level 108, Carbon Dioxide Level 21, Anion Gap 6, Blood Urea Nitrogen 5, Creatinine 0.69, Estimat Glomerular Filtration Rate 96, BUN/Creatinine Ratio 7, Glucose Level 103, Calcium Level 7.9, Corrected Calcium 8.7, Total Bilirubin 0.5, Aspartate Amino Transf (AST/SGOT) 140, Alanine Aminotransferase (ALT/SGPT) 124, Alkaline Phosphatase 59, Total Protein 5.1, Albumin 3.0, Erythrocyte Sedimentation Rate 8, Prothrombin Time 15.0, INR Comment 1.2, C-Reactive Protein High Sensitivity 0.75 04/07/23 06:24: Gamma Glutamyl Transpeptidase 76, Hepatitis A IgM Antibody Non-Reactive, Hepatitis B Surface Antigen Non-Reactive, Hepatitis B Core IgM Antibody Non- Reactive, Hepatitis C Antibody Non-Reactive 04/08/23 05:25: White Blood Count 5.8, Red Blood Count 4.11, Hemoglobin 11.9, Hematocrit 35, Mean Corpuscular Volume 86, Mean Corpuscular Hemoglobin 29, Mean Corpuscular Hemoglobin Concent 34, Red Cell Distribution Width 15.0, Platelet Count 160, Mean Platelet Volume 9.4, Immature Granulocyte % (Auto) 1, Neutrophils (%) (Auto) 44, Lymphocytes (%) (Auto) 45, Monocytes (%) (Auto) 8, Eosinophils (%) (Auto) 0, Basophils (%) (Auto) 1, Neutrophils # (Auto) 2.6, Lymphocytes # (Auto) 2.6, Monocytes # (Auto) 0.5, Eosinophils # (Auto) 0.0, Basophils # (Auto) 0.0, Immature Granulocyte # (Auto) 0.1, Sodium Level 135, Potassium Level 3.5, Chloride Level 108, Carbon Dioxide Level 20, Anion Gap 7, Blood Urea Nitrogen 4, Creatinine 0.66, Estimat Glomerular Filtration Rate 97, BUN/Creatinine Ratio 6, Glucose Level 109, Calcium Level 7.6, Corrected Calcium 8.3, Total Bilirubin 0 .6, Aspartate Amino Transf (AST/SGOT) 148, Alanine Aminotransferase (ALT/SGPT) 156, Alkaline Phosphatase 59, Total Protein 5.3, Albumin 3.1 04/09/23 05:37: White Blood Count 4.6, Red Blood Count 3.77, Hemoglobin 10.9, Hematocrit 33, Me an Corpuscular Volume 86, Mean Corpuscular Hemoglobin 29, Mean Corpuscular Hemoglobin Concent 34, Red Cell Distribution Width 15.3, Platelet Count 144, Mean Platelet Volume 9.5, Immature Granulocyte % (Auto) 1, Neutrophils (%) (Auto) 36, Lymphocytes (%) (Auto) 52, Monocytes (%) (Auto) 9, Eosinophils (%) (Auto) 1, Basophils (%) (Auto) 1, Neutrophils # (Auto) 1.7, Lymphocytes # (Auto) 2.4, Monocytes # (Auto) 0.4, Eosinophils # (Auto) 0.0, Basophils # (Auto) 0.0, Immature Granulocyte # (Auto) 0.1, Sodium Level 137, Potassium Level 3.1, Chloride Level 110, Carbon Dioxide Level 21, Anion Gap 6, Blood Urea Nitrogen 3, Creatinine 0.61, Estimat Glomerular Filtration Rate 99, BUN/Creatinine Ratio 5, Glucose Level 108, Calcium Level 7.4, Corrected Calcium 8.4, Total Bilirubin 0.5, Aspartate Amino Transf (AST/SGOT) 103, Alanine Aminotransferase (ALT/SGPT) 131, Alkaline Phosphatase 50, Total Protein 4.8, Albumin 2.8 04/10/23 05:28: White Blood Count 4.8, Red Blood Count 3.85, Hemoglobin 11.1, Hematocrit 33, Mean Corpuscular Volume 86, Mean Corpuscular Hemoglobin 29, Mean Corpuscular Hemoglobin Concent 34, Red Cell Distribution Width 15.4, Platelet Count 166, Mean Platelet Volume 9.5, Immature Granulocyte % (Auto) 1, Neutrophils (%) (Auto) 48, Lymphocytes (%) (Auto) 40, Monocytes (%) (Auto) 11, Eosinophils (%) (Auto) 0, Basophils (%) (Auto) 1, Neutrophils # (Auto) 2.3, Lymphocytes # (Auto) 1.9, Monocytes # (Auto) 0.5, Eosinophils # (Auto) 0.0, Basophils # (Auto) 0.0, Immature Granulocyte # (Auto) 0.0, Sodium Level 140, Potassium Level 3.4, Chloride Level 113, Carbon Dioxide Level 22, Anion Gap 5, Blood Urea Nitrogen 4, Creatinine 0.60, Estimat Glomerular Filtration Rate 99, BUN/Creatinine Ratio 7, Glucose Level 106, Calcium Level 7.7, Corrected Calcium 8.6, Total Bilirubin 0.4, Aspartate Amino Transf (AST/SGOT) 71, Alanine Aminotransferase (ALT/SGPT) 120, Alkaline Phosphatase 52, Total Protein 4.6, Albumin 2.9, Magnesium Level 2.2 04/11/23 04:42: White Blood Count 5.1, Red Blood Count 3.98, Hemoglobin 11.6, Hematocrit 35, Mean Corpuscular Volume 87, Mean Corpuscular Hemoglobin 29, Mean Corpuscular Hemoglobin Concent 33, Red Cell Distribution Width 15.9, Platelet Count 175, Mean Platelet Volume 9.6, Immature Granulocyte % (Auto) 1, Neutrophils (%) (Auto) 47, Lymphocytes (%) (Auto) 41, Monocytes (%) (Auto) 10, Eosinophils (%) (Auto) 0, Basophils (%) (Auto) 1, Neutrophils # (Auto) 2.4, Lymphocytes # (Auto) 2.1, Monocytes # (Auto) 0.5, Eosinophils # (Auto) 0.0, Basophils # (Auto) 0.0, Immature Granulocyte # (Auto) 0.1, Sodium Level 141, Potassium Level 3.6, Chloride Level 111, Carbon Dioxide Level 21, Anion Gap 9, Blood Urea Nitrogen 4, Creatinine 0.60, Estimat Glomerular Filtration Rate 99, BUN/Creatinine Ratio 7, Glucose Level 102, Calcium Level 7.8, Corrected Calcium 8.5, Total Bilirubin 0.4, Aspartate Amino Transf (AST/SGOT) 55, Alanine Aminotransferase (ALT/SGPT) 111, Alkaline Phosphatase 49, Total Protein 5.5, Albumin 3.1 Discharge Home Medications: Active Scripts Active Oxyir Tablet (Oxycodone HCl) 5 Mg Tab 5 Mg PO Q6H Prednisone 10 Mg Tab 10 Mg PO DAILY@1000 Pantoprazole Sodium 40 Mg Tablet.dr 40 Mg PO DAILY Vancomycin HCl 125 Mg Capsule 125 Mg PO QID Reported Levothyroxine Sodium 75 Mcg Tablet 75 Mcg PO DAILY Multivitamin 1 Each Tablet 1 Each PO HS Vitamin D3 (Cholecalciferol (Vitamin D3)) 50 Mcg (2000 Unit) Tablet 50 Mcg PO 1230 Calcium 600 + Vit D Caplet (Calcium Carbonate/Vitamin D3) 600 Mg Calcium-10 Mcg (400 Unit) Tablet 1 Each PO BID Instructions to patient/family Please see electronic discharge instructions given to patient. Diagnosis/Problems Diagnosis/Problems (1) Acute abdominal pain ANSON ACEVES DO Apr 11, 2023 15:39
[2023-04-11 16:56] VITALS: BP 136/69
== END 2023-04-11 16:40 | disposition home or self-care (01) | DRG 392 ==
LOC: 4TH 13:54 → OBSVTOIN 13:54 → INTOOBSV 13:54
PROVIDERS: ADMIT Internal Medicine; ATTEND Internal Medicine
DX: K52.9 Noninfective gastroenteritis and colitis, unspecified (principal); G47.33 Obstructive sleep apnea (adult) (pediatric); Z85.3 Personal history of malignant neoplasm of breast; M81.0 Age-related osteoporosis without current pathological fracture; E03.9 Hypothyroidism, unspecified; G43.909 Migraine, unspecified, not intractable, without status migrainosus; E78.00 Pure hypercholesterolemia, unspecified; Z92.3 Personal history of irradiation; R60.0 Localized edema; K59.00 Constipation, unspecified; Z79.890 Hormone replacement therapy; Z79.899 Other long term (current) drug therapy
CPT/HCPCS: 36415; 74022; 74177; 74250; 76705; 80053; 80074; 81000; 82150; 82977; 83615; 83690; 83735; 85025; 85610; 85652; 86141; 94760

== ENCOUNTER → 2023-04-28 | Outpatient (CLI) | payer MEDICARE, OTHER ==
[~2023-04-28] MED LIST changes: +LEVO75TA6 PO; +OXC5T PO; +PANT40TA52 PO; +ROSU5TAB13 PO; +VANC125C5 PO
[2023-04-28 12:28] LABS: BASOPHILS # (AUTO) 0.1 10^3/uL (0.0-0.1); BASOPHILS % (AUTO) 1 % (0-10); EOSINOPHILS % (AUTO) 1 % (0-10); HEMATOCRIT 43 % (35-52); LYMPHOCYTES # (AUTO) 2.4 10^3/uL (1.0-4.0); LYMPHOCYTES % (AUTO) 29 % (12-44); MEAN CORPUSCULAR HEMOGLOBIN 29 pg (25-34); MEAN CORPUSCULAR HGB CONC 33 g/dL (32-36); MEAN CORPUSCULAR VOLUME 89 fL (80-99); MEAN PLATELET VOLUME 9.5 fL (9.0-12.2); MONOCYTES # (AUTO) 0.6 10^3/uL (0.0-1.0); MONOCYTES % (AUTO) 8 % (0-12); NEUTROPHILS % (AUTO) 61 % (42-75); PLATELET COUNT 172 10^3/uL (130-400); WHITE BLOOD COUNT 8.1 10^3/uL (4.3-11.0)
[2023-04-28 12:50] LABS: BILIRUBIN,TOTAL 0.7 MG/DL (0.1-1.0); CALCIUM 8.8 MG/DL (8.5-10.1); CREATININE SERUM 0.79 MG/DL (0.60-1.30); POTASSIUM 3.7 MMOL/L (3.6-5.0); TOTAL PROTEIN 7.3 GM/DL (6.4-8.2)
[2023-04-28 13:04] LABS: ERYTHROCYTE SEDIMENTATION RATE 19 MM/HR (0-30)
--- NOTE | 2023-04-28 13:29 | Diagnostic Imaging Report ---
PROCEDURE: US Hepatic (Liver). TECHNIQUE: Multiple real-time grayscale images were obtained over the right upper quadrant in various projections. INDICATION: Right upper quadrant pain and elevated liver function tests. Correlation is made with recent study from 04/07/2023. Liver is normal in size at 17 cm. Portal vein is patent and shows normal direction of flow. No liver mass is detected apart from a rounded area of echogenicity in the right lobe approximately 11 mm in size. This may represent a small hemangioma. Gallbladder is without stones or sludge. There is no wall thickening or biliary duct dilatation. Pancreas unremarkable. Aorta is nonaneurysmal. IVC is patent. Right kidney measures 9.8 cm. There is no calculi or hydronephrosis. There is no ascites. IMPRESSION: Unremarkable right upper quadrant ultrasound. No acute features identified. There is a questionable hemangioma right lobe of the liver. No cholelithiasis or acute cholecystitis is detected. Dictated by: Dictated on workstation # [id number]
== END ==
LOC: LAB 12:01
PROVIDERS: ATTEND Nurse Practitioner Family
DX: R10.11 Right upper quadrant pain (principal); R74.8 Abnormal levels of other serum enzymes
CPT/HCPCS: 36415; 76705; 80053; 82150; 83690; 85025; 85652